=== PATIENT | male | born 1960 | race Caucasian/White ===

== ENCOUNTER 2024-01-28 12:16 | Inpatient (IN) | payer BC, SELFPAY ==
[2024-01-28] VITALS (13 sets, daily range): BP systolic 116–149; BP diastolic 53–86; PULSE 53–65; RESP 14–18; TEMP 36.4–36.9; O2SAT 92–97; BMI 48.9
--- NOTE | ~2024-01-28 | XR_ITS ---
XR chest 1V portable 02/08/2024 05:56 Indication: Shortness of breath Procedure: AP portable chest Comparison: Comparison to multiple prior studies sequentially, with oldest reviewed study dated 01/27. Findings: Cardiomegaly. Pulmonary edema. Layering right pleural effusion. No pneumothorax. Large bore central venous catheter tip in the SVC. No acute osseous abnormality. Impression: 1: Cardiomegaly with stable pulmonary edema. 2: Layering right pleural effusion. Reviewed, dictated and finalized at location A. Impression: 1: Cardiomegaly with stable pulmonary edema. 2: Layering right pleural effusion.
--- NOTE | ~2024-01-28 | XR_ITS ---
Portable chest x-ray Comparison: 02/02/2024 Clinical History: Shortness of breath Findings: Probable small pleural effusions are present with mild to moderate pulmonary edema pattern . Right-sided central venous line unchanged. Cardiomediastinal silhouette is stable. Bones and soft tissues are unremarkable. Impression: Small pleural effusions with mild to moderate pulmonary edema pattern. Stable support line. Reviewed, dictated and finalized at [facility]. Impression: Small pleural effusions with mild to moderate pulmonary edema pattern. Stable support line.
--- NOTE | ~2024-01-28 | XR_ITS ---
EXAMINATION: XR fl guide central line place DATE: 01/30/2024 16:23 INDICATION: Tunneled Duraflow catheter placement TECHNIQUE: 2 fluoroscopic images of the neck and chest were obtained during procedure performed by Dr Jeri Patel. Radiologist was not present for the imaging or procedure. The amount of fluoroscopy time used during this procedure was 4.0 minutes. COMPARISON: None. FINDINGS: The cephalad portion of a large-bore dual-lumen likely tunneled catheter seen at the right neck likel y for internal jugular vein access. The distal tip of the catheter projects over the high right atriu m. A hemostat and likely lap sponge markers likely external to the patient project over the right inf erior heart. IMPRESSION: 1. Fluoroscopy utilized during placement of a right internal jugular central venous catheter with dis robel tip at the high right atrium. See procedure note for further detail. Reviewed, dictated and finalized at location L. IMPRESSION: 1. Fluoroscopy utilized during placement of a right internal jugular central ve nous catheter with distal tip at the high right atrium. See procedure note for further detail.
--- NOTE | ~2024-01-28 | XR_ITS ---
EXAMINATION: XR chest 1V portable DATE: 01/28/2024 13:36 INDICATION: Shortness of breath. TECHNIQUE: A single frontal view of the chest was obtained on 3 radiographs. COMPARISON: Chest 2 views 11/27/2006 FINDINGS: The patient is rotated to his left. There is a small right pleural effusion. There are airs pace opacities in all right lung zones and in left lower lung zone. No pneumothorax. The heart size i s normal. IMPRESSION: 1. Airspace opacities in all right lung zones and in left lower lung zone, consistent with atelectasi s versus pneumonia. 2. Small right pleural effusion. Reviewed, dictated and finalized at location A. IMPRESSION: 1. Airspace opacities in all right lung zones and in left lower lung zone, cons istent with atelectasis versus pneumonia. 2. Small right pleural effusion.
--- NOTE | ~2024-01-28 | XR_ITS ---
EXAMINATION: XR chest 1V portable Exam Date/Time: 02/02/2024 12:34 CDT HISTORY: pulm edema Comparison: None. RESULT: Lines, tubes, and devices: Right IJ dual-lumen catheter terminating in the distal SVC. Lungs and pleura: Mild diffuse reticular opacities. Patchy segmental right mid and lower as well as left lower opacities. Minimal blunting of the costophrenic angles. Cardiomediastinal silhouette: Stable. Other: No acute osseous or upper abdominal finding. IMPRESSION: Mid/lower right and lower left lung atelectasis/consolidation. Mild interstitial edema. Possible smal l bilateral pleural effusions. Reviewed, dictated and finalized at location K. IMPRESSION: Mid/lower right and lower left lung atelectasis/consolidation. Mild interstitia l edema. Possible small bilateral pleural effusions.
--- NOTE | ~2024-01-28 | US_ITS ---
EXAMINATION: US venous doppler [facility] DATE: 01/29/2024 09:12 INDICATION: Lower limb swelling and erythema TECHNIQUE: Grayscale ultrasound images without and with compression and Doppler ultrasound images of the bilateral lower extremity veins were obtained. COMPARISON: None. FINDINGS: The visualized portions of right common femoral vein, profunda (deep) femoral vein, femoral vein, pop liteal vein, posterior tibial veins, peroneal veins, gastrocnemius vein and greater saphenous vein ou tflow are patent. The visualized portions of left common femoral vein, profunda femoral vein, femoral vein, popliteal v ein, gastrocnemius vein and greater saphenous vein outflow are patent. The left posterior tibial and peroneal veins are not visualized due to a left shhte-tlw-volf amputation. IMPRESSION: 1. No deep venous thrombosis in either lower limb. Reviewed, dictated and finalized at location B.
--- NOTE | ~2024-01-28 | US_ITS ---
US abdomen limited INDICATION: Ascites. PROCEDURE: Realtime right upper abdominal ultrasound. COMPARISON: No prior studies for comparison. FINDINGS: The pancreas is normal without focal mass or pancreatic ductal dilation. Liver echotexture is normal without focal mass or intrahepatic biliary dilatation. There is normal directional flow i n the portal vein. Small amount of ascites. The gallbladder is normal without stones, gallbladder wall thickening or pericholecystic fluid. Comm on bile duct measures 5 mm. No sonographic Palomino's sign. IMPRESSION: 1: Small volume of ascites in the upper abdomen. Reviewed, dictated and finalized at location A.
--- NOTE | ~2024-01-28 | XR_ITS ---
XR chest port-a-cath/central 01/30/2024 16:53 Indication: Tunneled Duraflow catheter Procedure: AP portable chest Comparison: 01/28/2004 Findings: Large bore right IJ central venous catheter tip near the cavoatrial junction. Cardiomegaly. There is extensive right-sided airspace disease. No significant effusion. No pneumothorax. No acute osseous abnormality. Impression: 1: Extensive right-sided airspace disease, suspicious for pneumonia. Asymmetric edema less favored. Reviewed, dictated and finalized at location A. Impression: 1: Extensive right-sided airspace disease, suspicious for pneumonia. Asymmetric edema less favored.
--- NOTE | ~2024-01-28 | US_ITS ---
EXAMINATION: US renal BI DATE: 01/29/2024 14:00 INDICATION: Elevated creatinine. TECHNIQUE: Multiple ultrasound grayscale images of the kidneys were obtained. COMPARISON: None. FINDINGS: The right kidney measures 12.1 x 7.1 x 6.5 cm. The left kidney measures 12.7 x 7.4 x 5.4 cm. The kidn eys demonstrate normal parenchymal echogenicity. There is no hydronephrosis. The bladder is normal. A scites is noted. IMPRESSION: 1. Normal kidney sizes. No hydronephrosis. 2. Ascites. Reviewed, dictated and finalized at location A.
--- NOTE | 2024-01-28 12:21 | ECG_ITS ---
Measurements Intervals [place] Rate: 54 P: SD: 0 QRS: 77 QRSD: 87 T: 40 QT: 455 QTc: 433 Interpretive Statements SUPRAVENTRICULAR BRADYCARDIA LOW QRS VOLTAGE- DIFFUSE LEADS CANNOT RULE OUT SEPTAL INFARCT, AGE INDETERMINATE BORDERLINE ST-T WAVE ABNORMALITY- INF/LAT LEADS BASELINE ARTIFACT- I, II, III, AVR, AVL, AVF, V2-V6 ABNORMAL ECG NO PREVIOUS ECG AVAILABLE FOR COMPARISON Electronically Signed On 01-28-2024 12:49:44 CDT by Ortiz Valiente D.O.
[2024-01-28] MEDS: FUROSEMIDE INJ 40 MG/4 ML VIAL IV PUSH ×2 (13:14→14:31)
--- NOTE | 2024-01-28 13:26 | ED.SOB ---
HPI - SOB/Dyspnea General Chief Complaint: Shortness of Breath/Dyspnea Stated Complaint: ble swelling Time Seen by Provider: 01/28/24 12:36 History of Present Illness HPI Narrative: patient presenting with increased swelling to abdomen, lower extremities, and shortness of breath on exertion, he does have history of CHF for which she takes Lasix however over the past 2 weeks things have been getting worse. Has been admitted for this in the past, usually at another hospital. Did also stub one of his remaining toes. Related Data Allergies Allergy/AdvReac Type Severity Reaction Status Date / Time clopidogrel Allergy Unknown Verified 11/25/12 14:51 pregabalin Allergy Unknown Verified 11/25/12 14:51 Review of Systems Review of Systems: CONST: No fever. HEENT: No sore throat C/V: No chest pain RESP: No cough GI: Reports abdominal distension : No dysuria. M/S: lower extremity edema SKIN: Abrasion to toe NEURO: [No headache or focal numbness or weakness] PSYCH: [No depression] [facility] Family History Family History (Updated 11/25/12 @ 14:58 by DOCTOR UNKNOWN) Other Cerebrovascular accident Depression Diabetes mellitus Family history of alcoholism Family history of malignant neoplasm of gastrointestinal tract Family history of mental disorder Hypertension Social History Social History Smoking status: Never smoker Alcohol intake: never Exam Narrative: EXAMINATION OF ORGAN SYSTEMS/BODY AREAS: Constitutional: Vital signs per nursing GENERAL:[No acute distress, non-toxic appearing.] HEAD: Normal with no signs of head trauma. EYES: EOMI, conjunctiva normal ENT: Hearing grossly intact LUNGS: Coarse bilateral lung sounds HEART: [Regular rate and rhythm] ABD: [Soft], distended EXT: LLE BKA; R toe abrasion SKIN: R toe abrasion NEURO: [Alert and oriented x 3. No gross focal sensory or strength deficits.] PSYCH: Normal affect Course Vital Signs Vital signs: Vital Signs Temperature 97.6 F 01/28/24 12:26 Pulse Rate 54 L 01/28/24 12:26 Respiratory Rate 18 01/28/24 12:26 Blood Pressure 119/68 01/28/24 12:26 Pulse Oximetry 92 01/28/24 12:26 Oxygen Delivery Nasal Cannula 01/28/24 12:26 Oxygen Flow Rate 4 01/28/24 12:26 Temperature 97.6 F 01/28/24 14:45 Pulse Rate 59 L 01/28/24 14:45 Respiratory Rate 14 01/28/24 14:45 Blood Pressure 116/76 01/28/24 14:45 Pulse Oximetry 96 01/28/24 14:45 Oxygen Delivery Nasal Cannula 01/28/24 14:14 Oxygen Flow Rate 4 01/28/24 14:14 MDM - SOB/Dyspnea MDM Narrative Medical decision making narrative: 1) Differential diagnosis: CHF exacerbation, ACS, pneumonia 2) Comorbidities: Obesity, CAD, CHF 3) External notes reviewed: n/a (pt from OSH) 4) History sources independently obtained from: EMS report 5) Discussion of management with: hospitalist 6) Independent interpretation of: CXR: R sided effusion, some patchy opacities bilateral lungs; c/w fluid overload 7) Diagnostic tests or therapies considered but not ordered: n/a 8) Social determinants of health: n/a 9) Shared decision makinM h/o CHF p/w CERVANTES and increased JACQUE and abd distension c/w CHF exac; BNP elevated, nl WBC and trop, CXR on my review c/w CHF exac (less likely PNA -- he has no cough and no WBC). He is slightly hypoxic and requiring oxygen, placed on 4 L nasal cannula. He is given 2 doses of lasix. Hendrix placed given the amount of edema for accurate I's and O's. EKG obtained here difficult to interpret due to artifact, the heart rate is 54, appears to have some ectopy/PVC, no obvious ST elevation or other signs of acute ischemia. Patient agreeable to the admission for diuresis. D/w the hospitalist for admission. Lab Data 01/28/24 13:21 01/28/24 13:21 Labs: Lab Results 01/28/24 Range/Units 13:21 WBC 8.2 (4.5-10.0) K/mm3 RBC 4.26 L (4.6-6.20) M/mm3 Hgb 11.8 L (14.0-18.0) g/dL Hct 39
[2024-01-28 13:32] LABS: Basophils Absolute Auto 0.1 K/mm3 (0.0-0.1); Basophils Percent Auto 0.6 % (0.2-1.2); Eosinophils Absolute Auto 0.3 K/mm3 (0-0.3); Eosinophils Percent Auto 3.8 % (0-4.4); Hematocrit 39.7 % (42.0-52.0); Hemoglobin 11.8 g/dL (14.0-18.0); Immature Granulocyte Absolute 0.03 K/mm3 (0.00-0.031); Immature Granulocyte Percent A 0.4 % (0-0.5); Lymphocytes Absolute Auto 0.78 K/mm3 (0.9-3.2); Lymphocytes Percent Auto 9.5 % (18.3-44.2); Mean Corpuscular HGB Conc 29.7 g/dl (32-36); Mean Corpuscular Hemoglobin 27.7 pg (26-34); Mean Corpuscular Volume 93.2 fl (80-100); Mean Platelet Volume 11.2 fl (7.4-10.4); Monocytes Absolute Auto 0.8 K/mm3 (0.1-0.6); Monocytes Percent Auto 9.8 % (2.6-8.5); Neutrophils Absolute Auto 6.3 K/mm3 (1.3-6.7); Neutrophils Percent Auto 75.9 % (45.5-73.1); Platelet Count Result 222 k/mm3 (150-375); Red Blood Count 4.26 M/mm3 (4.6-6.20); Red Cell Distribution Width 17.1 % (11.5-14.5); White Blood Count 8.2 K/mm3 (4.5-10.0)
[2024-01-28 13:41] LABS: Alanine Aminotransferase 18 U/L (6-50); Albumin Level 3.8 g/dL (3.5-5.1); Alkaline Phosphatase 137 U/L (38-126); Anion Gap 9 mmol/L (8-16); Aspartate Amino Transferase 28 U/L (17-59); Bilirubin,Total 0.7 mg/dL (0.2-1.3); Blood Urea Nitrogen 98 mg/dL (9-20); Calcium 8.5 mg/dL (8.4-10.2); Carbon Dioxide 26 mmol/L (22-30); Chloride 98 mmol/L (98-107); Estimated CRCL calculation 31 ml/min; Estimated Glomerular Filt Rate 18; Glucose 135 mg/dL (65-110); Potassium 5.1 mmol/L (3.4-5.0); Sodium 133 mmol/L (137-145)
[2024-01-28 13:46] LABS: INR 1.7
[2024-01-28 13:52] LABS: NT Pro B Type Natriuretic Pept 4980 pg/mL (19.9-100); Troponin I < 0.012 ng/mL (0.000-0.034)
[2024-01-28] MEDS: TETANUS,DIPHTHERIA,AC PERTUSSIS ADULT (0.5 ML) BOOSTRIX IM (14:31)
[2024-01-28] MEDS: ONDANSETRON INJ 4 MG/2 ML VIAL IV PUSH (14:38)
--- NOTE | 2024-01-28 16:29 | ADMGEN ---
This patient, Thang Zamora, was admitted to IMU Room 209-01. Patient/family oriented to hospital policies and general routines including ID bracelet, bed and alarms, visiting hours, pain management, procedures, bathroom and other care routines, personal items, smoking policy, room service/diet, and visiting hours. Information on how to activate the Rapid Response Team has been discussed. Patient/Family are encouraged to report perceived risks to care and to ask questions if they do not understand what they are told or what they should do.
--- NOTE | 2024-01-28 21:58 | PM.IMHP ---
H&P: HPI History of Present Illness Date/Time: 01/28/24 19:00 Chief Complaint: Shortness of breath and swelling. Narrative: This is a 63-year-old male with history of paroxysmal atrial fibrillation, coronary artery disease with history of stents, congestive heart failure-type unknown, deep venous thrombosis, peripheral vascular disease, hypertension, hyperlipidemia, chronic kidney disease with history of temporary dialysis, type 2 diabetes mellitus, and depression who presented to the emergency department via EMS from home for evaluation of shortness of breath and swelling. The patient provides the following history. He gets all of his care at [facility] however due to his insurance he was apparently encouraged to seek treatment elsewhere. Over the last couple of weeks he has developed increasing swelling in his legs which is now up to the scrotum in abdomen, shortness of breath, sweats, and occasional nausea with dry heaves. At times he has mild pressure in his chest which seems to be worse when lying supine. He states compliance with his home medications. He denies fever, chills, cold and flu symptoms, pleuritic pain, productive cough, abdominal pain, vomiting, diarrhea, dysuria, and change in urine output. In the ED: He was afebrile on arrival with stable blood pressures. Labs were significant for WBC count of 8.2, hemoglobin 11.8, INR 1.7, sodium 133, potassium 5.1, BUN 98, creatinine 3.50, glucose 135, proBNP 4980, troponin less than 0.012, total protein 7.0, albumin 3.8. Chest x-ray showed airspace opacities the right lung zones and left lower lung zone consistent with atelectasis versus pneumonia and small right pleural effusion. He was given 80 mg IV furosemide and is being admitted in this setting with CHF exacerbation. Review of Systems Review of Systems: 12 systems were reviewed and are negative except for as per HPI. [facility] Past Medical History Medical History (Updated 01/28/24 @ 22:09 by Adele De Jesus PA-C) Chronic kidney disease Coronary artery disease Deep venous thrombosis Depression Heart failure of unknown type Hypertension Obstructive sleep apnea Does not use CPAP. Paroxysmal atrial fibrillation Peripheral vascular disease Type 2 diabetes mellitus Surgical History Surgical History (Updated 01/28/24 @ 22:05 by Adele De Jesus PA-C) History of amputation of toe History of cardiac catheterization History of cholecystectomy History of coronary artery stent placement History of left below knee amputation Family History Family History Other Cerebrovascular accident Depression Diabetes mellitus Family history of alcoholism Family history of malignant neoplasm of gastrointestinal tract Family history of mental disorder Hypertension Social History Social History (Updated 01/28/24 @ 22:05 by Adele De Jesus PA-C) Social History: Surrogate medical decision maker: Rodríguez Zamora, sibling. Code status: Full code. Smoking status: Never smoker Alcohol intake: never Substance use: never Do You Feel Safe in your Home?: Yes Lack of Transportation: No Lack of Food: Never True Current Housing: I Have Housing Concerned About Future Housing: YES Difficulty Paying Gas/Electric Bills: YES Difficulty Paying for Meds: No Currently Unemployed: No Education: Trade/Vocational Certificate Difficulty w/ Childcare or Family Care: No Spiritual care concerns: No Meds Home Medications and Allergies Home Medications Medication Instructions Recorded Confirmed Type Saccharomyces boulardii 250 mg 250 mg PO DAILY PRN Constipation 01/28/24 01/28/24 History capsule (Daily Probiotic (S. boulardii)) allopurinol 100 mg tablet 100 mg PO DAILY 01/28/24 01/28/24 History amlodipine 10 mg tablet 10 mg PO DAILY 01/28/24 01/28/24 History apixaban 5 mg tablet (Eliquis) 2.5 mg PO BID 01/28/24 01/28/24 History a
[2024-01-28] MEDS: hydrALAZINE HCL 50 MG TABLET PO (22:49)
[2024-01-28] MEDS: traZODone HCL 50 MG TABLET PO (22:49)
[2024-01-28] MEDS: METOPROLOL SUCCINATE EXT REL 50 MG TABCR PO (22:50)
[2024-01-28] MEDS: APIXABAN 2.5 MG TABLET PO (22:50)
[2024-01-28] MEDS: INSULIN GLARGINE (*BKC) 100 UNITS/ML 12 UNITS SUB-Q (22:56)
[2024-01-28 23:07] LABS: Hemoglobin A1C 8.2 % (<5.7)
[2024-01-28 23:15] LABS: Glucose Point of Care 191 mg/dl (65-105)
[2024-01-28 23:22] LABS: Anion Gap 7 mmol/L (8-16); Blood Urea Nitrogen 96 mg/dL (9-20); CRP 3.1 mg/dL (<1.0); Calcium 8.5 mg/dL (8.4-10.2); Carbon Dioxide 29 mmol/L (22-30); Chloride 97 mmol/L (98-107); Estimated CRCL calculation 27 ml/min; Estimated Glomerular Filt Rate 16; Glucose 179 mg/dL (65-110); Magnesium 3.2 mg/dL (1.6-2.3); Potassium 4.8 mmol/L (3.4-5.0); Sodium 133 mmol/L (137-145)
[2024-01-28 23:32] LABS: Troponin I < 0.012 ng/mL (0.000-0.034)
[2024-01-29] VITALS (21 sets, daily range): BP systolic 105–135; BP diastolic 49–63; PULSE 49–86; RESP 18–20; TEMP 36.4–36.9; O2SAT 91–100
[2024-01-29 05:00] LABS: Hematocrit 38.3 % (42.0-52.0); Hemoglobin 11.3 g/dL (14.0-18.0); Mean Corpuscular HGB Conc 29.5 g/dl (32-36); Mean Corpuscular Hemoglobin 27.5 pg (26-34); Mean Corpuscular Volume 93.2 fl (80-100); Mean Platelet Volume 10.9 fl (7.4-10.4); Platelet Count Result 213 k/mm3 (150-375); Red Blood Count 4.11 M/mm3 (4.6-6.20); Red Cell Distribution Width 16.9 % (11.5-14.5); White Blood Count 7.9 K/mm3 (4.5-10.0)
[2024-01-29 05:08] LABS: Anion Gap 7 mmol/L (8-16); Blood Urea Nitrogen 94 mg/dL (9-20); Calcium 8.3 mg/dL (8.4-10.2); Carbon Dioxide 29 mmol/L (22-30); Chloride 98 mmol/L (98-107); Estimated CRCL calculation 26 ml/min; Estimated Glomerular Filt Rate 15; Glucose 157 mg/dL (65-110); Magnesium 3.2 mg/dL (1.6-2.3); Potassium 4.7 mmol/L (3.4-5.0); Sodium 134 mmol/L (137-145)
[2024-01-29 07:18] LABS: Glucose Point of Care 164 mg/dl (65-105)
[2024-01-29 09:09] LABS: Free T4 Free Thyroxine Reflex 1.12 ng/dL (0.78-2.19)
[2024-01-29] MEDS: METOPROLOL SUCCINATE EXT REL 50 MG TABCR PO (09:11)
[2024-01-29] MEDS: ASCORBIC ACID 500 MG TABLET PO (09:11)
[2024-01-29] MEDS: FERROUS SULFATE 325 MG TABLET DR PO (09:11)
[2024-01-29] MEDS: PANTOPRAZOLE 40 MG TABLET PO ×2 (09:11→17:26)
[2024-01-29] MEDS: CHOLECALCIFEROL 1,000 UNITS TABLET 5000 UNITS PO (09:11)
[2024-01-29] MEDS: TAMSULOSIN HCL 0.4 MG CAPSULE PO (09:11)
[2024-01-29] MEDS: FUROSEMIDE INJ 40 MG/4 ML VIAL IV PUSH ×2 (09:12→17:26)
[2024-01-29] MEDS: THERAPEUTIC MULTIVITAMINS/MINERALS TAB (*BKC) 1 TABLET PO (09:12)
[2024-01-29] MEDS: allopurinoL 100 MG TABLET PO (09:12)
[2024-01-29] MEDS: amLODIPine BESYLATE 5 MG TABLET 10 MG PO (09:12)
[2024-01-29] MEDS: DULoxetine HCL 30 MG CAPSULE.DR PO (09:12)
[2024-01-29] MEDS: APIXABAN 2.5 MG TABLET PO ×2 (09:12→20:38)
[2024-01-29] MEDS: TOLNAFTATE 1% POWDER 45 GM BTL 1 APPLIC TOPICAL ×2 (09:15→20:39)
--- NOTE | 2024-01-29 09:57 | PM.CNNEP ---
Assessment and Plan Assessment and plan (1) Chronic kidney disease: Code(s): N18.9 - Chronic kidney disease, unspecified Status: Acute Assessment and Plan: Patient has an elevated creatinine. It is unclear how chronic this is. Just heard of this month or 2 ago but he does not go to the doctor routinely because of his insurance issues. He was told to go to a die filer but a die filer did not see him in the hospital so I am assuming that this is chronic and relatively stable at what ever creatinine he had at [facility]. Will try to get some records from them. Right now his GFR is 15 he does not have any uremic symptoms so we would need to do dialysis at this point. If this is chronic kidney disease (likely due to diabetes and hypertension plus vascular disease), then we would try to maintain his GFR while treating his swelling. He probably does at least have a component of CKD. If this is acute on chronic then will try to improve the renal function. So at this point will evaluate for both. We can check serology and immunofixation. Will also check a renal ultrasound. Will also check urine electrolytes, CPK, and fractional excretion of urea. (2) Edema: Code(s): R60.9 - Edema, unspecified Status: Acute Assessment and Plan: The patient has a substantial amount of swelling. He is getting furosemide 40mg IV twice a day. His urine output is not very good. Etiology of the swelling could be from nephrotic syndrome from the diabetes. He could also have heart failure. He does not have any lab evidence of cirrhosis. Venous Dopplers were negative. Will check for protein in the urine. Also will check an echocardiogram. Consider CT of the abdomen if those 2 are normal. (3) Acute hypoxic respiratory failure: Code(s): J96.01 - Acute respiratory failure with hypoxia Status: Acute Assessment and Plan: The patient is on 4L of oxygen. Will continue attempting diuresis. (4) Acute hyperkalemia: Code(s): E87.5 - Hyperkalemia Status: Acute Assessment and Plan: Potassium was borderline high on admission but is normal now (5) Hypertension: Code(s): I10 - Essential (primary) hypertension Status: Acute Assessment and Plan: Blood pressure is doing well this morning. (6) Paroxysmal atrial fibrillation: Code(s): I48.0 - Paroxysmal atrial fibrillation Status: Acute Assessment and Plan: Heart rate is good. He is on Eliquis (7) Coronary artery disease: Code(s): I25.10 - Atherosclerotic heart disease of [place] coronary artery without angina pectoris Status: Acute Assessment and Plan: No chest pain (8) Type 2 diabetes mellitus: Code(s): E11.9 - Type 2 diabetes mellitus without complications Status: Acute Assessment and Plan: On Accu-Cheks sliding scale insulin. Management per hospitalist. History of Present Illness Reason for Consult Consult date: 01/29/24 Chief Complaint Chief complaint: Acute CHF Exacerbation/Volume Overload/Hypoxia History of Present Illness Narrative: Thang is a very pleasant 63-year-old gentleman has multiple medical problems including chronic kidney disease, diabetes, hypertension, high body mass index, coronary disease, paroxysmal atrial fibrillation, peripheral vascular disease, obstructive sleep apnea but does not use a CPAP, and history of DVTs. The patient has been getting his care at [facility] in [place] but he had a change in insurance and they do not take this insurance so he came here. The patient came in because of shortness of breath and swelling. He was a [facility] a while back swelling. He was given diuretics. At the time he did have an elevated creatinine and on discharge he was advised to see a die filer. He has not been in to see 1 yet because of how busy the office was at that hospital. However he developed
--- NOTE | 2024-01-29 10:09 | ECHO_ITS ---
Patient Info Name: Thang Zamora Age: 63 years : 1960 Gender: Male Ht: 70 in Wt: 365 lbs BSA: 2.95 m2 HR: 78 bpm Technical Quality: Poor Exam Date: 01/29/2024 2:03 PM Exam Location: Echo Lab Patient Status: Inpatient Admit Date: 01/28/2024 Staff Ordering Physician: Quincy Slaughter MD Air Hammer Operator: Mackenzie Cordova RDCS Attending Provider: Volodymyr Stephens MD Referring Physician: Sukhjinder LEROY; Exam Type: CA echo dop color flow w con Study Info Indications - VOLUME OVERLOAD CKD Complete two-dimensional, color flow and Doppler transthoracic echocardiogram is performed with contrast to opacify the left ventricle and to improve the deliniation of the left ventricle endocardial borders. Contrast/Agitated Saline Contrast/Ag. Saline: Definity Amount: 2.00 ml Administered By: Mackenzie Cordova [facility] Existing IV Access: Yes IV Access Condition: patent with no signs of infiltration Reason for Poor Study: patient body habitus Summary 1. Technically suboptimal study due to poor sonographic images. 2. Left ventricular chamber dimension is moderately enlarged. 3. Left ventricular systolic function is normal, estimated at 60-65%. 4. The left ventricular diastolic function is abnormal. 5. E/e' 13 is mildly elevated. 6. Left atrial chamber dimension is mildly enlarged. 7. Right atrial chamber dimension is mildly enlarged. 8. There is moderate aortic valve sclerosis as a moderate calcification of non-coronary cusp. 9. There is trace mitral valve regurgitation. 10. There is mild tricuspid valve regurgitation. 11. Mild pulmonary hypertension, estimated pulmonary arterial systolic pressure is 43 mmHg. 12. Dilated inferior vena cava with >50% collapse upon inspiration consistent with elevated right atrial pressure, 10 mmHg. Left Ventricle Technically suboptimal study due to poor sonographic images. E/e' 13 is mildly elevated. Left ventricular chamber dimension is moderately enlarged. Left ventricular systolic function is normal, estimated at 60-65%. The left ventricular diastolic function is abnormal. Right Ventricle Right ventricular chamber dimension is normal. Right ventricular systolic function is normal. Left Atria Left atrial chamber dimension is mildly enlarged. Right Atria Right atrial chamber dimension is mildly enlarged. Aortic Valve There is moderate aortic valve sclerosis as a moderate calcification of non-coronary cusp. The aortic valve is trileaflet. There is no aortic valve stenosis. There is no aortic valve regurgitation. Pulmonic Valve There is no pulmonic regurgitation. Mitral Valve There is no mitral valve stenosis. There is trace mitral valve regurgitation. Tricuspid Valve There is mild tricuspid valve regurgitation. Mild pulmonary hypertension, estimated pulmonary arterial systolic pressure is 43 mmHg. Pericardium/Pleural There is no pericardial effusion. Inferior Vena Cava Dilated inferior vena cava with >50% collapse upon inspiration consistent with elevated right atrial pressure, 10 mmHg. Aorta The aortic root size at the sinus of Valsalva is normal. Left Ventricular Outflow Tract Name Value Normal LVOT 2D LVOT Diameter 2.12 cm LVOT Doppler
[2024-01-29 10:30] LABS: Total Triiodothyronine (T3) 0.65 NG/ML (0.97-1.69)
[2024-01-29 11:52] LABS: Glucose Point of Care 190 mg/dl (65-105)
[2024-01-29 12:00] LABS: Parathyroid Intact 145.8 pg/mL (7.5-53.5)
[2024-01-29 12:04] LABS: Erythrocyte Sedimentation Rate 15 mm/hr (0-20)
[2024-01-29 12:06] LABS: Complement C3 91 mg/dL (88-165)
[2024-01-29 12:09] LABS: Creatine Kinase 76 U/L (55-170)
[2024-01-29] MEDS: hydrALAZINE HCL 50 MG TABLET PO ×2 (14:40→20:38)
[2024-01-29] MEDS: PERFLUTREN LIPID MICROSPHERES 1.5 ML VIAL DILUTED TO 10 ML TOTAL VOLUME IV PUSH (14:50)
--- NOTE | 2024-01-29 15:05 | IVDEFINITY ---
Prior to administration of IV Definity the patient was educated on the risks and benefits of the imaging enhancing agent including potential adverse side effects. The patient verbalized understanding. Allergies were verified. No exclusion criteria were identified and at least one of the following inclusion criteria were met: 1) physician request, 2) patient technically difficult to image (per the [place] [employer] guidelines of two or more segments not discernable within the apical view), or 3) questionable left ventricular function. ?
[2024-01-29] MEDS: MAGNESIUM OXIDE 400 MG TABLET PO (17:26)
[2024-01-29] MEDS: INSULIN ASPART (*BKC) 100 UNITS/ML SUB-Q ×2 (17:33→20:38)
[2024-01-29 17:36] LABS: Glucose Point of Care 235 mg/dl (65-105)
--- NOTE | 2024-01-29 18:31 | PM.IMPN ---
Progress Note: A&P Assessment and Plan (1) CHF exacerbation: Code(s): I50.9 - Heart failure, unspecified Status: Acute Assessment and Plan: The patient presents with shortness of breath and diffuse edema. CXR showing airspace opacities in all right lung zones and LLL with small right pleural effusion. BNP 4980 EKG showing supraventricular bradycardia and borderline ST-T wave changes. Echo showing EF 60-65% with LV enlargement, diastolic dysfunction and mild pulmonary HTN Concerning for acute CHF but consider related to renal failure. Less likely related to Rt heart failure. He has been started on Lasix IV. UOP not brisk. Monitor dialy weights, UOP. (2) Hypoxia: Code(s): R09.02 - Hypoxemia Status: Acute Assessment and Plan: Patient was hypoxic on admisison. CXR as mentioned above. Not able to do CTA but unlikely he has PE since he is on Eliquis. LE venous doppler negative for DVT No ABG. Was on 4L but able to wean down to 1L. Not able to wear CPAP is impacting his other medical problems. (3) Electrolyte abnormality: Code(s): E87.8 - Other disorders of electrolyte and fluid balance, not elsewhere classified Status: Acute Assessment and Plan: Sodium slightly low but stable and is likely related to excess fluid. Potassium was minimally elevated and improved with diuresis. Mag level elevated. Calcium normal but iPTH elevated Monitor and replace electrolytes. Check Phos level (4) Chronic kidney disease: Code(s): N18.9 - Chronic kidney disease, unspecified Status: Acute Assessment and Plan: Patient has a hx of CKD and appears to be close to dialysis. Baseline numbers unknown. Cr 3.5 and BUN 98 on admisison. Renal US showing normal appearing kidneys and ascites. With diuresis, BUN slightly better but Cr up to 4.1 Nephrology consulted and workup has been ordered. Check Abd US to assess for cirrhosis but feel the ascites probably related to renal failure. Monitor UOP, renal function and electrolytes (5) Type 2 diabetes mellitus: Code(s): E11.9 - Type 2 diabetes mellitus without complications Status: Acute Assessment and Plan: A1c 8.2. The patient's blood glucose was reviewed on 01/28 Glucose remains reasonably well controlled. Continue AccuCheks covering with sliding scale. Hypoglycemia protocol available as needed. Continue to monitor (6) Coronary artery disease: Code(s): I25.10 - Atherosclerotic heart disease of [place] coronary artery without angina pectoris Status: Acute Assessment and Plan: Hx of CAD s/p stent placement Not on ASA or statin. He is on betablocker but having supraventricular bradycardia. Probably chronic AFib? Back off on metoprolol given the soft BP and bradycardia. (7) Paroxysmal atrial fibrillation: Code(s): I48.0 - Paroxysmal atrial fibrillation Status: Acute Assessment and Plan: As above. Continue Eliquis for stroke prophylaxis Plan DVT prophlaxis - Eliquis Code status - full Subjective Date/time seen: 01/29/24 18:31 Interval history: 63yo male with pAFib, CKD with hx of temporary dialysis, CAD, TRISTEN (not on CPAP), CHF, PVD, HTN and DVT here for SOB. Assuming care. Chart reviewed. Slept off/on last night. Feels tired. No CPor SOB. Not on O2 at home. No n/v. He has been told that he is close to dialysis. No hx of cirrhosis. No hx of paracentesis. Abd feels full Exam Narrative: AF 98.0 109/49 49 18 91% 1L Gen - NARD lying almost flat in bed Chest - decreased BS in the bases but clear anteriorly. CV - RRR S1/S2. Tele showing occasional bradycardia. Abd - Soft, obese, NT - Hendrix secured draining clear yellow urine. Scrotal edema. Ext - Left LE BKA with pink erythema and excoriations proximal tot he stump. 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 Diffusely edematous Neuro - Alert and oriented. Nonfocal exam.
[2024-01-29 19:24] LABS: Appearance Urine Turbid (Clear); Bacteria Urine 2+ /hpf; Bilirubin Urine 1+ (Negative); Blood Urine 2+ (Negative); Color Urine Dark Yellow (Yellow); Glucose Urine UA Negative (Negative); Ketones Urine Trace mg/dL (Negative); Leukocyte Esterase Ur 3+ LEU/UL (Negative); Need Manual Microscopic Reviewed; Nitrate Urine Negative (Negative); Non Pathogenic Casts >20; Protein Urine 2+ mg/dL (Negative); RBC Urine 21-50 /hpf (0-2); Specific Grav Ur 1.017 (1.001-1.035); Squamous Epithelial Cell Urine Occasional /hpf (Few); Urobilinogen Urine 0.2 mg/dL (<2.0); WBC Urine >100 /hpf (0-3)
[2024-01-29 19:27] LABS: Add Urine Microscopic? YES
[2024-01-29 19:40] LABS: Creatinine Urine 210.2 mg/dL; Sodium Urine Random 24 meq/L; Total Protein Urine Random 104 mg/dL; Ur Ttl Prot Creatinine Ratio 0.49 mg/mg (0-0.20); Urea Random Urine 325 MG/DL
[2024-01-29 20:25] LABS: Glucose Point of Care 224 mg/dl (65-105)
[2024-01-29] MEDS: traZODone HCL 50 MG TABLET PO (20:37)
[2024-01-29] MEDS: INSULIN GLARGINE (*BKC) 100 UNITS/ML 12 UNITS SUB-Q (20:38)
[2024-01-30] VITALS (32 sets, daily range): BP systolic 74–127; BP diastolic 37–65; PULSE 46–68; RESP 12–20; TEMP 33.7–37; O2SAT 24–99
[2024-01-30 04:51] LABS: Basophils Absolute Auto 0.1 K/mm3 (0.0-0.1); Basophils Percent Auto 0.7 % (0.2-1.2); Eosinophils Absolute Auto 0.3 K/mm3 (0-0.3); Eosinophils Percent Auto 4.1 % (0-4.4); Hematocrit 39.2 % (42.0-52.0); Hemoglobin 11.3 g/dL (14.0-18.0); Immature Granulocyte Absolute 0.04 K/mm3 (0.00-0.031); Immature Granulocyte Percent A 0.5 % (0-0.5); Lymphocytes Absolute Auto 1.23 K/mm3 (0.9-3.2); Lymphocytes Percent Auto 16.8 % (18.3-44.2); Mean Corpuscular HGB Conc 28.8 g/dl (32-36); Mean Corpuscular Hemoglobin 27.4 pg (26-34); Mean Corpuscular Volume 95.1 fl (80-100); Mean Platelet Volume 10.9 fl (7.4-10.4); Monocytes Absolute Auto 1.1 K/mm3 (0.1-0.6); Neutrophils Absolute Auto 4.6 K/mm3 (1.3-6.7); Neutrophils Percent Auto 62.9 % (45.5-73.1); Platelet Count Result 206 k/mm3 (150-375); Red Blood Count 4.12 M/mm3 (4.6-6.20); Red Cell Distribution Width 16.7 % (11.5-14.5); White Blood Count 7.3 K/mm3 (4.5-10.0)
[2024-01-30 05:12] LABS: Albumin Level 3.4 g/dL (3.5-5.1); Anion Gap 6 mmol/L (8-16); Blood Urea Nitrogen 108 mg/dL (9-20); Calcium 8.2 mg/dL (8.4-10.2); Carbon Dioxide 31 mmol/L (22-30); Chloride 96 mmol/L (98-107); Estimated CRCL calculation 22 ml/min; Estimated Glomerular Filt Rate 12; Glucose 174 mg/dL (65-110); Phosphorus 7.6 mg/dL (2.5-4.5); Potassium 6.3 mmol/L (3.4-5.0); Sodium 133 mmol/L (137-145)
[2024-01-30 05:13] LABS: Anisocytosis 1+; Hypochromasia 1+; Macrocytosis 1+ (NORMAL); Platelet Estimate Adequate (Adequate)
[2024-01-30 05:14] LABS: Ovalocytes 1+; Schistocytes None Seen
--- NOTE | 2024-01-30 05:32 | PC.NURSE ---
Dr. Machado notified of critical potassium-deferred to nephrology. Dr. Slaughter notified of critical potassium of 6.3 and change in BUN (108) and creatinine (5.10). Orders received to treat high potassium. Patient more lethargic this shift showing signs of becoming more uremic. All vitals stable at this time. Will continue to monitor.
[2024-01-30] MEDS: SODIUM ZIRCONIUM CYCLOSILICATE 10 GM POWD.PACK PO (05:50)
[2024-01-30] MEDS: hydrALAZINE HCL 50 MG TABLET PO (05:51)
[2024-01-30] MEDS: DEXTROSE 50% 25 GM/50 ML SYRINGE IV PUSH (05:51)
[2024-01-30] MEDS: INSULIN HUMAN REGULAR (*BKC) 100 UNITS/ML 10 UNITS IV PUSH (05:51)
[2024-01-30 06:09] LABS: Magnesium 3.3 mg/dL (1.6-2.3)
[2024-01-30 07:31] LABS: Alanine Aminotransferase 15 U/L (6-50); Albumin Level 3.2 g/dL (3.5-5.1); Alkaline Phosphatase 117 U/L (38-126); Anion Gap 8 mmol/L (8-16); Aspartate Amino Transferase 25 U/L (17-59); Bilirubin,Total 0.5 mg/dL (0.2-1.3); Blood Urea Nitrogen 108 mg/dL (9-20); Calcium 7.7 mg/dL (8.4-10.2); Carbon Dioxide 27 mmol/L (22-30); Chloride 96 mmol/L (98-107); Estimated CRCL calculation 23 ml/min; Estimated Glomerular Filt Rate 12; Glucose 143 mg/dL (65-110); Potassium 4.8 mmol/L (3.4-5.0); Sodium 131 mmol/L (137-145)
--- NOTE | 2024-01-30 08:13 | PM.PNNEP ---
Progress Note: A&P Assessment and Plan (1) Chronic kidney disease: Code(s): N18.9 - Chronic kidney disease, unspecified Status: Acute Assessment and Plan: Patient has an elevated creatinine. Acute versus acute on chronic versus pure chronic. Urine electrolytes show pre renal azotemia. He has only 419mg of protein per g of creatinine. CK is normal Renal ultrasound shows normal kidney size and no hydronephrosis. Normal echogenicity. There is ascites. Echo shows mild pulmonary hypertension with the pulmonary artery systolic pressure of 43. Elevated right atrial pressure. His creatinine has worsened. His potassium was high this morning but responded to Lokelma. His BUN is up above 100 now. He is still very swollen. Urine output overnight was only 500mL, in response to40mg b.i.d. of furosemide. If we give him more diuretics, his creatinine will likely worsen. It will likely worsen even without them. If we try fluids his swelling is going to get even worse. I think at this point we need to do dialysis. I talked with the patient at length. We discussed the risks, benefits, alternatives, and process of dialysis and he agrees to proceed. I did put a call in to his sibling Rodríguez as well. I will put a consult in to surgery to place a dialysis catheter. Since the potassium is better, it is not an emergency but I would like to get going with the dialysis fairly soon. He is currently NPO so he could have either a temporary or a tunneled catheter. (2) Edema: Code(s): R60.9 - Edema, unspecified Status: Acute Assessment and Plan: The patient has a substantial amount of swelling. He is getting furosemide 40mg IV twice a day. His urine output is still somewhat low. Heart failure and proteinuria do not explain the swelling. Possibly just due to the renal failure. Does have ascites. Will check a CT of the abdomen down the line to investigate his liver and spleen. (3) Acute hypoxic respiratory failure: Code(s): J96.01 - Acute respiratory failure with hypoxia Status: Acute Assessment and Plan: The patient is on 4L of oxygen. (4) Acute hyperkalemia: Code(s): E87.5 - Hyperkalemia Status: Acute Assessment and Plan: Potassium was borderline high on admission and again earlier but repeat is normal. (5) Hypertension: Code(s): I10 - Essential (primary) hypertension Status: Acute Assessment and Plan: Blood pressure is down to 96. Will hold blood pressure meds. (6) Paroxysmal atrial fibrillation: Code(s): I48.0 - Paroxysmal atrial fibrillation Status: Acute Assessment and Plan: Heart rate is good. He is on Eliquis (7) Coronary artery disease: Code(s): I25.10 - Atherosclerotic heart disease of [place] coronary artery without angina pectoris Status: Acute Assessment and Plan: No chest pain (8) Type 2 diabetes mellitus: Code(s): E11.9 - Type 2 diabetes mellitus without complications Status: Acute Assessment and Plan: On Accu-Cheks sliding scale insulin. Management per hospitalist. Subjective Date/time seen: 01/30/24 08:13 Interval history: Patient slept okay last night. He is feeling about the same today. Overnight he developed hyperkalemia. He received some medications for this and a repeat lab shows improvement. Review of Systems Cardiovascular: Cardiovascular: Reports no additional cardiovascular complaints Respiratory: Respiratory: Reports no additional respiratory complaints Gastrointestinal: Gastrointestinal: Reports no additional gastrointestinal complaints Genitourinary: Genitourinary: Reports no additional male genitourinary complaints Exam Narrative: WDWN in NAD skin no rash head ncat lungs clear bilaterally cor reg no rub abd BS+ nontender and soft ext 2+ bilateral edema. Left sided amputation. Right side eschars plus
[2024-01-30 08:22] LABS: Glucose Point of Care 163 mg/dl (65-105)
[2024-01-30] MEDS: DULoxetine HCL 30 MG CAPSULE.DR PO (09:22)
[2024-01-30] MEDS: ASCORBIC ACID 500 MG TABLET PO (09:22)
[2024-01-30] MEDS: TAMSULOSIN HCL 0.4 MG CAPSULE PO (09:22)
[2024-01-30] MEDS: THERAPEUTIC MULTIVITAMINS/MINERALS TAB (*BKC) 1 TABLET PO (09:22)
[2024-01-30] MEDS: CHOLECALCIFEROL 1,000 UNITS TABLET 5000 UNITS PO (09:22)
[2024-01-30] MEDS: FERROUS SULFATE 325 MG TABLET DR PO (09:22)
[2024-01-30] MEDS: PANTOPRAZOLE 40 MG TABLET PO (09:22)
[2024-01-30] MEDS: allopurinoL 100 MG TABLET PO (09:23)
[2024-01-30] MEDS: TOLNAFTATE 1% POWDER 45 GM BTL 1 APPLIC TOPICAL ×2 (09:24→20:59)
--- NOTE | 2024-01-30 11:45 | W.PM.PROC2 ---
Procedure Note - Detailed Date of Procedure 01/30/24 Pre-op Diagnosis Acute CHF Exacerbation/Volume Overload/Hypoxia Post-op Diagnosis Same Procedure Performed Placement tunneled Duraflow CVC using ultrasound and under fluoroscopy Surgeon Bennett Patel MD Anesthesia MAC Description of Procedure Placement tunneled Duraflow CVC using ultrasound and under fluoroscopy
[2024-01-30 12:22] LABS: Glucose Point of Care 142 mg/dl (65-105)
[2024-01-30 13:05] LABS: Hepatitis B Surface Antigen Negative (Negative)
[2024-01-30 13:10] LABS: Hepatitis B Core IgM Result Negative (Negative)
[2024-01-30 13:23] LABS: Hepatitis B Surface Anti Res Negative
--- NOTE | 2024-01-30 13:48 | PC.NURSE ---
To OR per [ Lokesh], IV [22 right hand ]. Report given to [ Daniel]. Requested that they have PACU call me once he gets there so we can coordinate with dialysis and figure out if he should come back to his room or go straight to dialysis.
--- NOTE | 2024-01-30 14:15 | WPDANESEPPF ---
Anes - Initial Pre Proc Eval Procedure: Operation Date: 01/30/24 15:30 Proposed Procedures p Placement Tunnelled Duraflow Catheter Under Fluoroscopy - Bennett Patel MD Date/Time: 01/30/24 14:15 Surgeon: Volodymyr Stephens MD Pre Op Diagnosis: Acute CHF Exacerbation/Volume Overload/Hypoxia Patient Data Age: 63 Gender: M Height: 1.78 m Weight: 167 kg Last Vital Signs Temp 36.1 C L 01/30/24 14:11 Pulse 52 L 01/30/24 14:11 Resp 18 01/30/24 14:11 BP 107/49 L 01/30/24 14:11 Pulse Ox 92 01/30/24 14:11 O2 Del Method Nasal Cannula 01/30/24 14:11 O2 Flow Rate 2 01/30/24 14:11 Allergies Allergy/AdvReac Type Severity Reaction Status Date / Time clopidogrel Allergy Unknown Verified 11/25/12 14:51 pregabalin Allergy Unknown Verified 11/25/12 14:51 Home Medications Medication Instructions Recorded Confirmed Type Saccharomyces boulardii 250 mg 250 mg PO DAILY PRN Constipation 01/28/24 01/28/24 History capsule (Daily Probiotic (S. boulardii)) allopurinol 100 mg tablet 100 mg PO DAILY 01/28/24 01/28/24 History amlodipine 10 mg tablet 10 mg PO DAILY 01/28/24 01/28/24 History apixaban 5 mg tablet (Eliquis) 2.5 mg PO BID 01/28/24 01/28/24 History ascorbic acid (vitamin C) 500 mg 500 mg PO DAILY 01/28/24 01/28/24 History tablet (Vitamin C) cholecalciferol (vitamin D3) 125 125 mcg PO DAILY 01/28/24 01/28/24 History mcg (5,000 unit) tablet docusate sodium 100 mg capsule 100 mg PO BID PRN Constipation 01/28/24 01/28/24 History duloxetine 30 mg capsule,delayed 30 mg PO DAILY 01/28/24 01/28/24 History release ferrous sulfate 325 mg (65 mg 65 mg PO DAILY 01/28/24 01/28/24 History iron) tablet (FeroSul) hydralazine 10 mg tablet 50 mg PO Q8H 01/28/24 01/28/24 History insulin glargine 100 unit/mL 12 unit subcut HS 01/28/24 01/28/24 History subcutaneous solution magnesium oxide 400 mg (241.3 mg 500 mg PO BID 01/28/24 01/28/24 History magnesium) tablet metoprolol succinate 50 mg 50 mg PO BID 01/28/24 01/28/24 History tablet,extended release 24 hr multivitamin with minerals 1 tablet PO DAILY 01/28/24 01/28/24 History (Multiple Vitamin-Minerals tablet) omeprazole 20 mg capsule,delayed 40 mg PO BID 01/28/24 01/28/24 History release ondansetron 4 mg disintegrating 4 mg PO Q8H PRN Nausea 01/28/24 01/28/24 History tablet tamsulosin 0.4 mg capsule 0.4 mg PO DAILY 01/28/24 01/28/24 History trazodone 50 mg tablet 50 mg PO HS 01/28/24 01/28/24 History Laboratory Tests 01/29/24 01/29/24 01/29/24 17:30 18:23 20:22 WBC RBC Hgb Hct MCV MCH MCHC RDW Plt Count MPV Immature Gran % (Auto) Neut % (Auto) Lymph % (Auto) [place] % (Auto) Eos % (Auto) Baso % (Auto) Lymph # (Auto) [place] # (Auto) Eos # (Auto) Baso # (Auto) Abs Immat Gran (auto) Absolute Neuts (auto) Absolute Nucleated RBC Nucleated RBC % Platelet Estimate Hypochromasia Anisocytosis Macrocytosis Ovalocytes Schistocytes Sodium Potassium Chloride Carbon Dioxide Anion Gap BUN Creatinine Estim Creat Clear Calc Estimated GFR Glucose POC Capillary Glucose 235 H mg/dl 224 H mg/dl (65-105) (65-105) Calcium Phosphorus Magnesium Total Bilirubin AST ALT Alkaline Phosphatase Total Protein Albumin Urine Color Dark yellow (Yellow) Urine Appearance Turbid H (Clear) Urine pH 5.0 (5.0-
--- NOTE | 2024-01-30 14:24 | PM.IMPN ---
Progress Note: A&P Assessment and Plan (1) CHF exacerbation: Code(s): I50.9 - Heart failure, unspecified Status: Acute Assessment and Plan: The patient presents with shortness of breath and diffuse edema. CXR showing airspace opacities in all right lung zones and LLL with small right pleural effusion. BNP 4980 EKG showing supraventricular bradycardia and borderline ST-T wave changes. Echo showing EF 60-65% with LV enlargement, diastolic dysfunction and mild pulmonary HTN Patient with acute diastolic CHF but consider related to fluid overload from renal failure. Less likely related to Rt heart failure. He was started on Lasix IV but now off UOP remains poor Dialysis to help with fluid status (2) Hypoxia: Code(s): R09.02 - Hypoxemia Status: Acute Assessment and Plan: Patient was hypoxic on admisison. CXR as mentioned above. Not able to do CTA but unlikely he has PE since he is on Eliquis. LE venous doppler negative for DVT No ABG. [place] related to the fluid overload Was on 4L but able to wean down to 2L. Not able to wear CPAP is impacting his other medical problems. Wean O2 as tolerated Consider ApneaLink to see if he needs O2 at night once he is closer to dry weight (3) Electrolyte abnormality: Code(s): E87.8 - Other disorders of electrolyte and fluid balance, not elsewhere classified Status: Acute Assessment and Plan: Sodium slightly low but stable and is likely related to excess fluid. Potassium was elevated (6.1) treated with Lokelma. Mag and Phos level elevated. Calcium low but iPTH elevated Monitor and replace electrolytes as needed. (4) Chronic kidney disease: Code(s): N18.9 - Chronic kidney disease, unspecified Status: Acute Assessment and Plan: Patient has a hx of CKD and appears to be close to dialysis by his report. Baseline numbers unknown. Cr 3.5 and BUN 98 on admission Renal US showing normal appearing kidneys and ascites. With diuresis, BUN 108 and Cr 4.8 Nephrology consulted and workup has been ordered. Abd US ordered and pending to assess for cirrhosis. Discussed with nephrology. Plan to start dialysis today. General Surgery consulted for tunnelled catheter placement that was placed earlier today. HD to control fluid status. Monitor UOP, renal function and electrolytes (5) Hypertension: Code(s): I10 - Essential (primary) hypertension Status: Acute Assessment and Plan: Patient's blood pressure was reviewed on 01/29 Blood pressure dropped to 96/46 this morning. Lasix IV, Norvasc, Hydralazine and Toprol XL held today. Will continue to monitor BP and resume home meds as needed (6) Type 2 diabetes mellitus: Code(s): E11.9 - Type 2 diabetes mellitus without complications Status: Acute Assessment and Plan: A1c 8.2. The patient's blood glucose was reviewed on 01/29 Glucose better controlled. Continue AccuCheks covering with sliding scale. Hypoglycemia protocol available as needed. Continue to monitor (7) Coronary artery disease: Code(s): I25.10 - Atherosclerotic heart disease of [place] coronary artery without angina pectoris Status: Acute Assessment and Plan: Hx of CAD s/p stent placement Not on ASA or statin. He is on betablocker but having supraventricular bradycardia. Probably chronic AFib? Metoprolol held. Monitor tele (8) Paroxysmal atrial fibrillation: Code(s): I48.0 - Paroxysmal atrial fibrillation Status: Acute Assessment and Plan: As above. Eliquis for stroke prophylaxis but held for procedure today. Plan DVT prophylaxis - Resume Eliquis when okay with GenSurg Code status - full Subjective Date/time seen: 01/30/24 14:24 Interval history: 63yo male with pAFib, CKD with hx of temporary dialysis, CAD, TRISTEN (not on CPAP), CHF, PVD, HTN and DVT here for SOB. Feels tired. Slept off and on. No
[2024-01-30] MEDS: SODIUM CHLORIDE 0.9% IV 500 ML 30 ML IV CONT (14:52)
[2024-01-30] MEDS: ceFAZolin 3 GM/D5W 100 ML 100 ML IVPB (15:06)
--- NOTE | 2024-01-30 15:22 | PM.CNGS ---
Assessment and Plan Assessment and plan (1) Admission for fitting and adjustment of vascular catheter: Code(s): Z45.2 - Encounter for adjustment and management of vascular access device Status: Acute Assessment and Plan: Plan to proceed with placement tunneled central venous catheter for dialysis using ultrasound and under fluoroscopic guidance in the operating room today. I discussed this with the patient. He understands and agrees to go ahead. (2) Chronic kidney disease: Code(s): N18.9 - Chronic kidney disease, unspecified Status: Chronic (3) CHF exacerbation: Code(s): I50.9 - Heart failure, unspecified Status: Acute History of Present Illness Consult details Consult date: 01/30/24 Requesting physician: Quincy Slaughter MD Narrative: Patient is a 63-year-old man with multiple medical illnesses who presented with shortness of breath, edema and uremia. He has been seen by Nephrology and has a very low GFR. I was asked to place a tunneled central venous catheter for dialysis. REPLACED BY [facility] Past Medical History Medical History Chronic kidney disease Coronary artery disease Deep venous thrombosis Depression Heart failure of unknown type Hypertension Obstructive sleep apnea Does not use CPAP. Paroxysmal atrial fibrillation Peripheral vascular disease Type 2 diabetes mellitus Surgical History Surgical History History of amputation of toe History of cardiac catheterization History of cholecystectomy History of coronary artery stent placement History of left below knee amputation Family History Family History Other Cerebrovascular accident Depression Diabetes mellitus Family history of alcoholism Family history of malignant neoplasm of gastrointestinal tract Family history of mental disorder Hypertension Social History Social History Social History: Surrogate medical decision maker: Rodríguez Zamora, sibling. Code status: Full code. Smoking status: Never smoker Alcohol intake: never Substance use: never Do You Feel Safe in your Home?: Yes Lack of Transportation: No Lack of Food: Never True Current Housing: I Have Housing Concerned About Future Housing: YES Difficulty Paying Gas/Electric Bills: YES Difficulty Paying for Meds: No Currently Unemployed: No Education: Trade/Vocational Certificate Difficulty w/ Childcare or Family Care: No Spiritual care concerns: No Meds Home Medications and Allergies Home Medications Medication Instructions Recorded Confirmed Type Saccharomyces boulardii 250 mg 250 mg PO DAILY PRN Constipation 01/28/24 01/28/24 History capsule (Daily Probiotic (S. boulardii)) allopurinol 100 mg tablet 100 mg PO DAILY 01/28/24 01/28/24 History amlodipine 10 mg tablet 10 mg PO DAILY 01/28/24 01/28/24 History apixaban 5 mg tablet (Eliquis) 2.5 mg PO BID 01/28/24 01/28/24 History ascorbic acid (vitamin C) 500 mg 500 mg PO DAILY 01/28/24 01/28/24 History tablet (Vitamin C) cholecalciferol (vitamin D3) 125 125 mcg PO DAILY 01/28/24 01/28/24 History mcg (5,000 unit) tablet docusate sodium 100 mg capsule 100 mg PO BID PRN Constipation 01/28/24 01/28/24 History duloxetine 30 mg capsule,delayed 30 mg PO DAILY 01/28/24 01/28/24 History release ferrous sulfate 325 mg (65 mg 65 mg PO DAILY 01/28/24 01/28/24 History iron) tablet (FeroSul) hydralazine 10 mg tablet 50 mg PO Q8H 01/28/24 01/28/24 History insulin glargine 100 unit/mL 12 unit subcut HS 01/28/24 01/28/24 History subcutaneous solution magnesium oxide 400 mg (241.3 mg 500 mg PO BID 01/28/24 01/28/24 History magnesium) tablet metoprolol succinate 50 mg 50 mg PO BID 01/28/24 01/28/24 History tablet,extended release 24 hr multiv
[2024-01-30] MEDS: LIDO 1%/EPINEPHRINE 1:100,000 20 ML VIAL 50 ML INFILTRATE (15:37)
[2024-01-30] MEDS: HEPARIN SODIUM, PORCINE 10,000 UNITS/10 ML VIAL 10000 UNITS IV PUSH (15:40)
[2024-01-30 17:04] LABS: Glucose Point of Care 160 mg/dl (65-105)
--- NOTE | 2024-01-30 17:16 | W.PM.PROC2 ---
Procedure Note - Detailed Date of Procedure 01/30/24 Pre-op Diagnosis Chronic kidney disease stage 5, inadequate venous access for dialysis Post-op Diagnosis Same Procedure Performed Placement right internal jugular vein tunneled dura flow central venous catheter using ultrasound and under fluoroscopy Surgeon Bennett Patel MD [employer] Gautam Scott NEURODIAGNOSTIC TECH Anesthesia General (LMA) and Local (0.5% Marcaine with epinephrine) Indications Patient presented in congestive heart failure with severe uremia. 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 He is taken to the operating room at this time to proceed with placement. Findings Dialysis catheter tip was in the cavoatrial junction area. Both ports aspirated easily and flushed with heparin. Description of Procedure Patient was taken to the operating room and placed in a supine position. The right neck right and left upper chest were prepped and draped. Using ultrasound, I targeted the left internal jugular vein. I cannulated the vein and a guidewire passed readily. We used C-arm fluoroscopy and the guidewire was in the right atrium. I then chose a 36 cm dura flow central venous catheter. I laid out the pathway the catheter would be tunneled and then enter the internal jugular vein ending in the cavoatrial junction area. I marked each of the proposed counter incisions for tunneling of the catheter. Patient is quite large with a very thick neck. The counter incisions were anesthetized with local anesthesia and then incisions were made including an incision at the exit site of the guidewire. I then tunneled the dura flow catheter retrograde starting in the upper right chest in proceeding through each of the counter incisions and eventually out the exit site of the guidewire. I then started to pass the smaller introducer over the guidewire. This was done under fluoroscopy. Even with the introducer held directly in line with the guidewire, it would not pass into the internal jugular vein. In fact, the guidewire kinked as the path down to the internal jugular vein was fairly direct and deep. The change in direction of the guidewire to feed down the internal jugular vein was almost a right angle. I could not get the introducer to pass the right angle kink in the wire. We brought another introducer kit into the field. I tried to pass this guidewire through the introducer which I kept as close to the internal jugular vein entrance site as I could. It would not pass into the vein. I removed the introducer and the old guidewire. The initial guidewire was discarded. I then brought ultrasound back into the field. I located the internal jugular vein lower on the right side of the neck closer to the chest and clavicle. I placed additional local and then cannulated this area of internal jugular vein. On this cannulation I tried to angle the needle at more of a 45 degree angle down to the vein. The needle was barely long enough to do this but it did work. We cannulated the vein and passed another guidewire into the appropriate position. I had to infiltrated additional local at the exit site of this guidewire. Incision was made as this would be an exit port of the dura flow catheter. I then tunneled the dura flow catheter down to the lower incision where the guidewire was exiting. Serial dilators were then passed under fluoroscopy over the guidewire and into the vena cava. Finally, the dilator and sleeve were passed over this guidewire and into the superior vena cava. I then removed the introducer and guidewire. There was significant venous back bleeding. We tried to keep this to a minimum and passed the dura flow catheter down the sleeve and into the distal SVC right atrial junction. The sleeve was then removed. I checked the position of the catheter and there were no kinks at its apex and appeared to be in very good position.
[2024-01-30] MEDS: ALBUMIN HUMAN 25% 12.5 GM/50ML 100 ML 999 GM (17:43)
[2024-01-30] MEDS: SODIUM CHLORIDE 0.9% IV 1,000 ML 999 ML IV CONT (17:59)
[2024-01-30] MEDS: HEPARIN SODIUM 1,000 UNITS/ML VIAL 5000 UNITS (18:00)
--- NOTE | 2024-01-30 18:00 | PC.NURSE ---
Patient went straight from PACU to dialysis around 1800. He did not come back to his room in between.
[2024-01-30] MEDS: ALBUMIN HUMAN 25% 12.5 GM/50ML 50 ML IVPB (18:27)
[2024-01-30] MEDS: ALBUMIN HUMAN 25% 12.5 GM/50ML 50 ML 999 GM (19:05)
[2024-01-30] MEDS: oxyCODONE/ACETAMINOPHEN (*CRX) 5-325 MG TABLET 1 TABLET PO (20:55)
[2024-01-30] MEDS: INSULIN GLARGINE (*BKC) 100 UNITS/ML 12 UNITS SUB-Q (20:59)
[2024-01-30 21:31] LABS: Glucose Point of Care 133 mg/dl (65-105)
[2024-01-31] VITALS (28 sets, daily range): BP systolic 98–131; BP diastolic 37–76; PULSE 65–75; RESP 16–20; TEMP 35.5–37; O2SAT 92–100
[2024-01-31 05:51] LABS: Hematocrit 35.1 % (42.0-52.0); Hemoglobin 10.5 g/dL (14.0-18.0); Mean Corpuscular HGB Conc 29.9 g/dl (32-36); Mean Corpuscular Hemoglobin 27.7 pg (26-34); Mean Corpuscular Volume 92.6 fl (80-100); Mean Platelet Volume 10.5 fl (7.4-10.4); Platelet Count Result 172 k/mm3 (150-375); Red Blood Count 3.79 M/mm3 (4.6-6.20); Red Cell Distribution Width 16.6 % (11.5-14.5); White Blood Count 6.9 K/mm3 (4.5-10.0)
[2024-01-31 06:18] LABS: Albumin Level 3.3 g/dL (3.5-5.1); Anion Gap 8 mmol/L (8-16); Blood Urea Nitrogen 87 mg/dL (9-20); Carbon Dioxide 27 mmol/L (22-30); Chloride 96 mmol/L (98-107); Estimated CRCL calculation 24 ml/min; Estimated Glomerular Filt Rate 13; Glucose 125 mg/dL (65-110); Phosphorus 6.9 mg/dL (2.5-4.5); Potassium 4.9 mmol/L (3.4-5.0); Sodium 131 mmol/L (137-145)
[2024-01-31] MEDS: oxyCODONE/ACETAMINOPHEN (*CRX) 5-325 MG TABLET 1 TABLET PO ×2 (06:32→23:47)
[2024-01-31 07:46] LABS: Glucose Point of Care 134 mg/dl (65-105)
[2024-01-31] MEDS: CHOLECALCIFEROL 1,000 UNITS TABLET 5000 UNITS PO (08:49)
[2024-01-31] MEDS: THERAPEUTIC MULTIVITAMINS/MINERALS TAB (*BKC) 1 TABLET PO (08:49)
[2024-01-31] MEDS: TAMSULOSIN HCL 0.4 MG CAPSULE PO (08:49)
[2024-01-31] MEDS: DULoxetine HCL 30 MG CAPSULE.DR PO (08:49)
[2024-01-31] MEDS: allopurinoL 100 MG TABLET PO (08:49)
[2024-01-31] MEDS: MAGNESIUM OXIDE 400 MG TABLET PO ×2 (08:49→17:04)
[2024-01-31] MEDS: ASCORBIC ACID 500 MG TABLET PO (08:49)
[2024-01-31] MEDS: PANTOPRAZOLE 40 MG TABLET PO ×2 (08:49→17:04)
[2024-01-31] MEDS: FERROUS SULFATE 325 MG TABLET DR PO (08:49)
[2024-01-31] MEDS: DOCUSATE SODIUM 100 MG CAPSULE PO (08:56)
[2024-01-31] MEDS: SACCHAROMYCES BOULARDII 250 MG CAPSULE PO (08:56)
[2024-01-31] MEDS: TOLNAFTATE 1% POWDER 45 GM BTL 1 APPLIC TOPICAL ×2 (08:57→20:35)
--- NOTE | 2024-01-31 09:32 | PM.PNNEP ---
Progress Note: A&P Assessment and Plan (1) Chronic kidney disease: Code(s): N18.9 - Chronic kidney disease, unspecified Status: Chronic Assessment and Plan: Patient has an elevated creatinine. Acute versus acute on chronic versus pure chronic. Urine electrolytes show pre renal azotemia. He has only 419mg of protein per g of creatinine. CK is normal Renal ultrasound shows normal kidney size and no hydronephrosis. Normal echogenicity. There is ascites. Echo shows mild pulmonary hypertension with the pulmonary artery systolic pressure of 43. Elevated right atrial pressure. He started on dialysis last evening. His blood pressure was a bit soft early on. It improved with albumin. Today will dialyze again. Because he has so much fluid off will do 1hour of dry ultrafiltration and will give albumin from the start to try to maintain his blood pressure while we take fluid off. He will get 2.5 hours of regular dialysis after that to continue to remove kidney poisons. He had a tunneled dialysis catheter placed yesterday. It is unclear if his kidney function will improve before he goes home. Will check hepatitis studies just in case. I did end up talking with his brother Rodríguez yesterday. (2) Edema: Code(s): R60.9 - Edema, unspecified Status: Acute Assessment and Plan: The patient has a substantial amount of swelling. He is getting furosemide 40mg IV twice a day. His urine output is still somewhat low. Heart failure and proteinuria do not explain the swelling. Sleep apnea may be playing a role. Possibly also due to the renal failure. Does have ascites. Dr. Poole are checked on ultrasound. Liver looked okay. (3) Acute hypoxic respiratory failure: Code(s): J96.01 - Acute respiratory failure with hypoxia Status: Acute Assessment and Plan: The patient is down to 2 L of oxygen. (4) Acute hyperkalemia: Code(s): E87.5 - Hyperkalemia Status: Acute Assessment and Plan: Resolved (5) Hypertension: Code(s): I10 - Essential (primary) hypertension Status: Acute Assessment and Plan: Blood pressure is doing okay. BP meds are on hold (6) Paroxysmal atrial fibrillation: Code(s): I48.0 - Paroxysmal atrial fibrillation Status: Acute Assessment and Plan: Heart rate is good. He is on Eliquis (7) Coronary artery disease: Code(s): I25.10 - Atherosclerotic heart disease of [place] coronary artery without angina pectoris Status: Acute Assessment and Plan: No chest pain (8) Type 2 diabetes mellitus: Code(s): E11.9 - Type 2 diabetes mellitus without complications Status: Acute Assessment and Plan: On Accu-Cheks sliding scale insulin. Management per hospitalist. Subjective Date/time seen: 01/31/24 09:32 Interval history: Thang is feeling a little better. He is more awake today. He did okay in dialysis yesterday. His blood pressure was a bit low but has been better overnight Exam Narrative: WDWN in NAD skin no rash head ncat lungs clear bilaterally cor reg no rub or gallop abd BS+ nontender and soft ext 2+ bilateral edema. Objective Data Vital Signs Vital Signs: Vital Signs - 24 hr 01/30/24 10:00 01/30/24 11:48 01/30/24 12:00 Temperature 97.0 F L Pulse Rate 53 L 53 L Respiratory Rate 20 Blood Pressure 112/49 L Pulse Oximetry 24 L 94 Oxygen Delivery Nasal Cannula Oxygen Flow Rate 2 Fraction of Inspired Oxygen 01/30/24 12:00 01/30/24 14:11 01/30/24 16:42 Temperature 96.9 F L 97 F L Pulse Rate 54 L 52 L 65 Respiratory Rate 18 12 Blood Pressure 107/49 L 91/51 L Pulse Oximetry 92 97 Oxygen Delivery Nasal Cannula Simple Face Mask Oxygen Flow Rate 2 10 Fraction of Inspired Oxygen 01/30/24 16:52 01/30/24 17:00 01/30/24 17:14 Temperature 97 F L Pulse Rate 64 65 66 Respiratory Rate 12 12 12 Blood Press
--- NOTE | 2024-01-31 10:33 | PM.IMPN ---
Progress Note: A&P Assessment and Plan (1) CHF exacerbation: Code(s): I50.9 - Heart failure, unspecified Status: Acute Assessment and Plan: The patient presents with shortness of breath and diffuse edema. CXR showing airspace opacities in all right lung zones and LLL with small right pleural effusion. BNP 4980 EKG showing supraventricular bradycardia and borderline ST-T wave changes. Echo showing EF 60-65% with LV enlargement, diastolic dysfunction and mild pulmonary HTN Patient with acute diastolic CHF but consider related to fluid overload from renal failure. Less likely related to Rt heart failure. He was started on Lasix IV but now off due to climbing Cr. UOP remained poor Decision to start HD and tunnelled catheter placed. Dialysis to improve fluid status. CXR again showing more right sided airspace disease. PNA suspected radiographically but not clinically. No fever/elevated WBC and only minimal cough. Did have soft BP but better now. Rocephin started for possible UTI so will follow for now. (2) Hypoxia: Code(s): R09.02 - Hypoxemia Status: Acute Assessment and Plan: Patient was hypoxic on admisison. CXR as mentioned above. No ABG Not able to do CTA but unlikely he has PE since he is on Eliquis. LE venous doppler negative for DVT [place] related to the fluid overload Was on 4L but able to wean down to 2L (probably could be weaned even further) Not able to tolerate TRISTEN treatment is impacting his other medical problems. Repeat CXR again showing R>L airspace disease. Wean O2 as tolerated Consider ApneaLink to see if he needs O2 at night once he is closer to dry weight Repeat CXR in a few days once his fluid status improves (3) Chronic kidney disease: Code(s): N18.9 - Chronic kidney disease, unspecified Status: Chronic Assessment and Plan: Patient has a hx of CKD and appears to be close to dialysis by his report. Baseline numbers unknown. Cr 3.5 and BUN 98 on admission Renal US showing normal appearing kidneys and ascites. With diuresis, BUN 108 and Cr 4.8 Nephrology consulted and workup was ordered. Abd US sgowing small ascites and no evidence of cirrhosis. Discussed with nephrology and decision to start HD was made. Patient was agreeable General Surgery consulted and a tunnelled catheter placed / HD yesterday abd again today. Use HD to control fluid status. Monitor UOP, renal function and electrolytes (4) Electrolyte abnormality: Code(s): E87.8 - Other disorders of electrolyte and fluid balance, not elsewhere classified Status: Acute Assessment and Plan: Sodium slightly low but stable and is likely related to excess fluid. Na stable Potassium was elevated (6.1) treated with Lokelma. Potassium normal now Mag and Phos level elevated. Calcium low but iPTH elevated Monitor and replace electrolytes as needed. (5) Hypertension: Code(s): I10 - Essential (primary) hypertension Status: Acute Assessment and Plan: Patient's blood pressure was reviewed on 01/30 Blood pressure dropped on 01/29 and Lasix IV, Norvasc, Hydralazine and Toprol XL were held BP dropped to 74/37 with HD last night but better today. Will continue to monitor BP and resume home meds as needed (6) Type 2 diabetes mellitus: Code(s): E11.9 - Type 2 diabetes mellitus without complications Status: Acute Assessment and Plan: A1c 8.2. The patient's blood glucose was reviewed on 01/30 Glucose better controlled. Continue AccuCheks covering with sliding scale. Hypoglycemia protocol available as needed. Continue to monitor on lantus (7) Coronary artery disease: Code(s): I25.10 - Atherosclerotic heart disease of [place] coronary artery without angina pectoris Status: Acute Assessment and Plan: Hx of CAD s/p stent placement Not on ASA or statin. He is on betablocker but having supraventricular bradycardia and now Ho
[2024-01-31] MEDS: ALBUMIN HUMAN 25% 12.5 GM/50ML 100 ML 50 GM (10:49)
[2024-01-31] MEDS: EPOETIN ALFA-EPBX 10,000 UNITS/ML VIAL 10000 UNITS IV PUSH (11:21)
--- NOTE | 2024-01-31 11:41 | PC.NURSE ---
0820 Report given on the pts VS trend to Dr. Sarmiento with no new interventions at this time. The pt is denying distress et none noted
--- NOTE | 2024-01-31 12:05 | PC.NURSE ---
Report called to Ira SIMMONS on 2 medical. Report given that the pt is now in HD et will report to 245 s/p completion of HD treatment. Report called et given to Amira SIMMONS in HD on the change of Room number et RN
--- NOTE | 2024-01-31 12:21 | PC.NURSE ---
Unable to complete Eucerin ointment as ordered due to the medication not being on the unit prior to the pt transferring to HD. Will tube to 2 medical.
[2024-01-31] MEDS: EUCERIN CREAM 120 GM JAR 1 APPLIC TOPICAL (14:48)
[2024-01-31] MEDS: polyethylene glycoL 3350 17 GM POWD.PACK PO (14:48)
[2024-01-31 16:58] LABS: Glucose Point of Care 118 mg/dl (65-105)
[2024-01-31 19:57] LABS: Glucose Point of Care 131 mg/dl (65-105)
[2024-01-31] MEDS: INSULIN GLARGINE (*BKC) 100 UNITS/ML 12 UNITS SUB-Q (20:35)
[2024-01-31 21:11] LABS: Kappa\\Lambda Light Chains 1.69 (0.26-1.65); Lambda Light Chain 74.9 mg/L (5.7-26.3)
[2024-02-01] VITALS (26 sets, daily range): BP systolic 105–150; BP diastolic 49–73; PULSE 73–88; RESP 16–20; TEMP 36.5–37; O2SAT 90–97
[2024-02-01 05:43] LABS: Hemoglobin 10.1 g/dL (14.0-18.0); Mean Corpuscular HGB Conc 29.7 g/dl (32-36); Mean Corpuscular Hemoglobin 27.4 pg (26-34); Mean Corpuscular Volume 92.1 fl (80-100); Mean Platelet Volume 10.5 fl (7.4-10.4); Platelet Count Result 149 k/mm3 (150-375); Red Blood Count 3.69 M/mm3 (4.6-6.20); Red Cell Distribution Width 16.5 % (11.5-14.5)
[2024-02-01 05:57] LABS: Albumin Level 3.7 g/dL (3.5-5.1); Anion Gap 7 mmol/L (8-16); Blood Urea Nitrogen 67 mg/dL (9-20); Calcium 8.2 mg/dL (8.4-10.2); Carbon Dioxide 30 mmol/L (22-30); Chloride 96 mmol/L (98-107); Estimated CRCL calculation 26 ml/min; Estimated Glomerular Filt Rate 15; Glucose 91 mg/dL (65-110); Phosphorus 5.8 mg/dL (2.5-4.5); Potassium 4.9 mmol/L (3.4-5.0); Sodium 133 mmol/L (137-145)
[2024-02-01 08:21] LABS: Glucose Point of Care 95 mg/dl (65-105)
[2024-02-01] MEDS: PANTOPRAZOLE 40 MG TABLET PO ×2 (08:26→17:11)
[2024-02-01] MEDS: TAMSULOSIN HCL 0.4 MG CAPSULE PO (08:26)
--- NOTE | 2024-02-01 08:35 | PC.NURSE ---
Patient to dialysis @ 2839
--- NOTE | 2024-02-01 08:45 | PCOTNOTE ---
Attempted to see pt. for occupational therapy evalution. Pt. away from room for dialysis. Nursing aware.
[2024-02-01] MEDS: ALBUMIN HUMAN 25% 25 GM/100 ML 100 ML IVPB (08:54)
--- NOTE | 2024-02-01 09:05 | PM.PNNEP ---
Progress Note: A&P Assessment and Plan (1) Chronic kidney disease: Code(s): N18.9 - Chronic kidney disease, unspecified Status: Chronic Assessment and Plan: Patient has an elevated creatinine. Acute versus acute on chronic versus pure chronic. Urine electrolytes show pre renal azotemia. He has only 419mg of protein per g of creatinine. CK is normal Renal ultrasound shows normal kidney size and no hydronephrosis. Normal echogenicity. There is ascites. Echo shows mild pulmonary hypertension with the pulmonary artery systolic pressure of 43. Elevated right atrial pressure. Cultures are all pending/negative so far He had his 2nd dialysis yesterday and it went well. Will get another dialysis today. Will do 3hours and 300 blood flow and take off 2-3 L as tolerated. Blood pressure looks better. Will give a dose of albumin before the treatment this time as well. It is unclear if his kidney function will improve before he goes home. Hepatitis studies pending. He has a tunneled dialysis catheter. (2) Edema: Code(s): R60.9 - Edema, unspecified Status: Acute Assessment and Plan: The patient has a substantial amount of swelling. He is getting furosemide 40mg IV twice a day. Since he is on dialysis will switch to 80mg p.o. twice a day We can probably pull the catheter if okay with hospitalist Swelling is most likely related to the decreased kidney function (3) Acute hypoxic respiratory failure: Code(s): J96.01 - Acute respiratory failure with hypoxia Status: Acute Assessment and Plan: The patient is down to 2 L of oxygen. This will hopefully improve as we remove fluid (4) Acute hyperkalemia: Code(s): E87.5 - Hyperkalemia Status: Acute Assessment and Plan: Resolved (5) Hypertension: Code(s): I10 - Essential (primary) hypertension Status: Acute Assessment and Plan: Blood pressure is doing okay. BP meds are on hold (6) Paroxysmal atrial fibrillation: Code(s): I48.0 - Paroxysmal atrial fibrillation Status: Acute Assessment and Plan: Heart rate is good. He is on Eliquis (7) Coronary artery disease: Code(s): I25.10 - Atherosclerotic heart disease of [place] coronary artery without angina pectoris Status: Acute Assessment and Plan: No chest pain (8) Type 2 diabetes mellitus: Code(s): E11.9 - Type 2 diabetes mellitus without complications Status: Acute Assessment and Plan: On Accu-Cheks sliding scale insulin. Management per hospitalist. (9) Hyperphosphatemia: Code(s): E83.39 - Other disorders of phosphorus metabolism Status: Acute Assessment and Plan: The patient's phosphorus was 5.8 this morning. Will follow this along and add binders if needed. Subjective Date/time seen: 02/01/24 09:05 Interval history: Patient had a rough night. He was constipated and did receive an enema and has had some results. No chest pain or shortness of breath Still very swollen Exam Narrative: WDWN in NAD skin no rash or subQ nodules head ncat lungs clear bilaterally cor reg no rub or gallop abd BS+ nontender and soft ext 2+ bilateral edema. Objective Data Vital Signs Vital Signs: Vital Signs - 24 hr 01/31/24 09:24 01/31/24 09:24 01/31/24 09:34 Temperature 97.5 F L Pulse Rate 67 66 Respiratory Rate 18 Blood Pressure 123/60 120/60 Pulse Oximetry 100 Oxygen Delivery Oxygen Flow Rate 2 Fraction of Inspired Oxygen 0 01/31/24 09:45 01/31/24 10:00 01/31/24 10:15 Temperature Pulse Rate 68 69 68 Respiratory Rate Blood Pressure 117/59 L 104/53 L 98/46 L Pulse Oximetry Oxygen Delivery Oxygen Flow Rate Fraction of Inspired Oxygen 01/31/24 10:30 01/31/24 10:34 01/31/24 10:45 Temperature Pulse Rate 69 68 68 Respiratory Rate Blood Pressure 100/54 L 109/55 L 116/60 Pulse
[2024-02-01] MEDS: SODIUM CHLORIDE 0.9% IV 1,000 ML 999 ML IV CONT (09:16)
[2024-02-01] MEDS: HEPARIN SODIUM 1,000 UNITS/ML VIAL 5000 UNITS (09:16)
[2024-02-01] MEDS: EPOETIN ALFA-EPBX 10,000 UNITS/ML VIAL 10000 UNITS IV PUSH (10:11)
[2024-02-01 12:26] LABS: Glucose Point of Care 82 mg/dl (65-105)
[2024-02-01] MEDS: CHOLECALCIFEROL 1,000 UNITS TABLET 5000 UNITS PO (12:33)
[2024-02-01] MEDS: DULoxetine HCL 30 MG CAPSULE.DR PO (12:34)
[2024-02-01] MEDS: ASCORBIC ACID 500 MG TABLET PO (12:34)
[2024-02-01] MEDS: allopurinoL 100 MG TABLET PO (12:34)
[2024-02-01] MEDS: THERAPEUTIC MULTIVITAMINS/MINERALS TAB (*BKC) 1 TABLET PO (12:34)
[2024-02-01] MEDS: polyethylene glycoL 3350 17 GM POWD.PACK PO (12:35)
[2024-02-01] MEDS: FERROUS SULFATE 325 MG TABLET DR PO (12:35)
[2024-02-01] MEDS: TOLNAFTATE 1% POWDER 45 GM BTL 1 APPLIC TOPICAL ×2 (12:36→20:41)
[2024-02-01] MEDS: EUCERIN CREAM 120 GM JAR 1 APPLIC TOPICAL (12:36)
--- NOTE | 2024-02-01 12:47 | PM.IMPN ---
Progress Note: A&P Assessment and Plan (1) CHF exacerbation: Code(s): I50.9 - Heart failure, unspecified Status: Acute Assessment and Plan: The patient presents with shortness of breath and diffuse edema. CXR showing airspace opacities in all right lung zones and LLL with small right pleural effusion. BNP 4980 EKG showing supraventricular bradycardia and borderline ST-T wave changes. Echo showing EF 60-65% with LV enlargement, diastolic dysfunction and mild pulmonary HTN Patient with acute diastolic CHF but consider related to fluid overload from renal failure. Less likely related to Rt heart failure. He was started on Lasix IV but now off due to climbing Cr. UOP remained poor Decision to start HD and tunnelled catheter placed. CXR again showing more right sided airspace disease. PNA suspected radiographically but not clinically (No fever/elevated WBC and only minimal cough) BCx NGTD. UCx pending Continue Dialysis to improve fluid status. Rocephin started for possible UTI so will follow for now. (2) Hypoxia: Code(s): R09.02 - Hypoxemia Status: Acute Assessment and Plan: Patient was hypoxic on admisison. CXR as mentioned above. No ABG Not able to do CTA but unlikely he has PE since he is on Eliquis. LE venous doppler negative for DVT [place] related to the fluid overload Was on 4L but able to wean down to 2L (probably could be weaned even further) Not able to tolerate TRISTEN treatment is impacting his other medical problems. Repeat CXR again showing R>L airspace disease. Wean O2 as tolerated Consider ApneaLink to see if he needs O2 at night once he is closer to dry weight Repeat CXR in a few days once his fluid status improves (3) Chronic kidney disease: Code(s): N18.9 - Chronic kidney disease, unspecified Status: Chronic Assessment and Plan: Patient has a hx of CKD and appears to be close to dialysis by his report. Baseline numbers unknown. Cr 3.5 and BUN 98 on admission Renal US showing normal appearing kidneys and ascites. With diuresis, BUN 108 and Cr 4.8 Nephrology consulted and workup was ordered. Liam 24, FENa 0.4% c/w pre-renal Abd US shows small ascites and no evidence of cirrhosis. Discussed with nephrology and decision to start HD was made. Patient was agreeable General Surgery consulted and a tunnelled catheter placed 01/29 HD 01/29, 01/30 and again today. Use HD to control fluid status. Monitor UOP, renal function and electrolytes (4) Electrolyte abnormality: Code(s): E87.8 - Other disorders of electrolyte and fluid balance, not elsewhere classified Status: Acute Assessment and Plan: Sodium slightly low but stable and is likely related to excess fluid. Na stable Potassium was elevated (6.1) treated with Lokelma. Potassium normal now Phos level elevated. Calcium low but iPTH elevated Monitor and replace electrolytes as needed. (5) Hypertension: Code(s): I10 - Essential (primary) hypertension Status: Acute Assessment and Plan: Patient's blood pressure was reviewed on 01/31 Blood pressure dropped on 01/29 and Lasix IV, Norvasc, Hydralazine and Toprol XL were held Will continue to monitor BP and resume home meds as needed (6) Type 2 diabetes mellitus: Code(s): E11.9 - Type 2 diabetes mellitus without complications Status: Acute Assessment and Plan: A1c 8.2. The patient's blood glucose was reviewed on 01/31 Glucose too well controlled. Continue AccuCheks covering with sliding scale. Hypoglycemia protocol available as needed. Will decrease Lantus (7) Coronary artery disease: Code(s): I25.10 - Atherosclerotic heart disease of [place] coronary artery without angina pectoris Status: Acute Assessment and Plan: Hx of CAD s/p stent placement Not on ASA or statin. He is on betablocker but having supraventricular bradycardia and now HoTN. Metoprolol held. Monitor on tele (8)
--- NOTE | 2024-02-01 13:45 | PCPTNOTE ---
attempted PT evaluation, pt refused at this time, pt was a little emotional and states he is not feeling good, reports he is most concerned about having a bowel movement, informed pt that we will try again at a later time
[2024-02-01 15:42] LABS: Complement Total CH50 >60 U/mL (31-60)
[2024-02-01] MEDS: BISACODYL 10 MG SUPPOSITORY RECTAL (15:48)
[2024-02-01] MEDS: MAGNESIUM OXIDE 400 MG TABLET PO (17:10)
[2024-02-01 17:25] LABS: Glucose Point of Care 86 mg/dl (65-105)
[2024-02-01 20:18] LABS: Glucose Point of Care 86 mg/dl (65-105)
[2024-02-01] MEDS: APIXABAN 2.5 MG TABLET PO (20:37)
[2024-02-02] VITALS (9 sets, daily range): BP systolic 139–147; BP diastolic 51–64; PULSE 84–103; RESP 18; TEMP 36.8–37.1; O2SAT 92–100; BMI 10.0
[2024-02-02 06:04] LABS: Albumin Level 3.4 g/dL (3.5-5.1); Anion Gap 7 mmol/L (8-16); Blood Urea Nitrogen 53 mg/dL (9-20); Calcium 8.3 mg/dL (8.4-10.2); Carbon Dioxide 31 mmol/L (22-30); Chloride 97 mmol/L (98-107); Estimated CRCL calculation 34 ml/min; Estimated Glomerular Filt Rate 21; Glucose 95 mg/dL (65-110); Phosphorus 4.3 mg/dL (2.5-4.5); Potassium 4.8 mmol/L (3.4-5.0); Sodium 135 mmol/L (137-145)
[2024-02-02] MEDS: DULoxetine HCL 30 MG CAPSULE.DR PO (08:00)
[2024-02-02] MEDS: FERROUS SULFATE 325 MG TABLET DR PO (08:00)
[2024-02-02] MEDS: PANTOPRAZOLE 40 MG TABLET PO ×2 (08:00→16:06)
[2024-02-02] MEDS: TAMSULOSIN HCL 0.4 MG CAPSULE PO (08:01)
[2024-02-02] MEDS: VITAMIN B CMPLX/VIT C/FOLIC AC 1 CAPSULE 1 CAP PO (08:01)
[2024-02-02] MEDS: EUCERIN CREAM 120 GM JAR 1 APPLIC TOPICAL (08:01)
[2024-02-02] MEDS: allopurinoL 100 MG TABLET PO (08:01)
[2024-02-02] MEDS: APIXABAN 2.5 MG TABLET PO ×2 (08:01→20:52)
[2024-02-02] MEDS: CHOLECALCIFEROL 1,000 UNITS TABLET 5000 UNITS PO (08:01)
[2024-02-02] MEDS: TOLNAFTATE 1% POWDER 45 GM BTL 1 APPLIC TOPICAL ×2 (08:01→20:52)
[2024-02-02] MEDS: MAGNESIUM OXIDE 400 MG TABLET PO ×2 (08:01→16:06)
[2024-02-02] MEDS: ASCORBIC ACID 500 MG TABLET PO (08:01)
[2024-02-02] MEDS: THERAPEUTIC MULTIVITAMINS/MINERALS TAB (*BKC) 1 TABLET PO (08:01)
[2024-02-02 08:16] LABS: Glucose Point of Care 91 mg/dl (65-105)
[2024-02-02] MEDS: VANCOMYCIN 2,000 MG/NS 500 ML 2,000 MG/500 ML BAG 250 MG IVPB (08:17)
[2024-02-02 12:17] LABS: Glucose Point of Care 98 mg/dl (65-105)
--- NOTE | 2024-02-02 14:06 | PM.PNNEP ---
Progress Note: A&P Assessment and Plan (1) Chronic kidney disease: Code(s): N18.9 - Chronic kidney disease, unspecified Status: Chronic Assessment and Plan: Patient has an elevated creatinine. Acute versus acute on chronic versus pure chronic. Urine electrolytes show pre renal azotemia. He has only 419mg of protein per g of creatinine. CK is normal Renal ultrasound shows normal kidney size and no hydronephrosis. Normal echogenicity. There is ascites. Echo shows mild pulmonary hypertension with the pulmonary artery systolic pressure of 43. Elevated right atrial pressure. Cultures are all pending/negative so far He had his 3rd dialysis yesterday and it went well. Will get another dialysis tomorrow 3-1/2 hours and max blood flow. His blood pressure has improved. Now it is up to 147. He will probably be able to get more fluid off tomorrow. I asked Case Management to go ahead and set him up for dialysis at [facility] in case he continues to need dialysis. I suspect that he will need it for at least a few weeks if not permanently. (2) Edema: Code(s): R60.9 - Edema, unspecified Status: Acute Assessment and Plan: The patient has a substantial amount of swelling. He is getting furosemide 40mg IV twice a day. Since he is on dialysis will switch to 80mg p.o. twice a day We can probably pull the [place] catheter if okay with hospitalist Swelling is most likely related to the decreased kidney function (3) Acute hypoxic respiratory failure: Code(s): J96.01 - Acute respiratory failure with hypoxia Status: Acute Assessment and Plan: The patient is down to 2 L of oxygen. This will hopefully improve as we remove fluid (4) Acute hyperkalemia: Code(s): E87.5 - Hyperkalemia Status: Acute Assessment and Plan: Resolved (5) Hypertension: Code(s): I10 - Essential (primary) hypertension Status: Acute Assessment and Plan: Blood pressure is doing okay. BP meds are on hold Begin full these back in if taking fluid off tomorrow does not bring the blood pressure down. (6) Paroxysmal atrial fibrillation: Code(s): I48.0 - Paroxysmal atrial fibrillation Status: Acute Assessment and Plan: Heart rate is good. He is on Eliquis (7) Coronary artery disease: Code(s): I25.10 - Atherosclerotic heart disease of [place] coronary artery without angina pectoris Status: Acute Assessment and Plan: No chest pain (8) Type 2 diabetes mellitus: Code(s): E11.9 - Type 2 diabetes mellitus without complications Status: Acute Assessment and Plan: On Accu-Cheks sliding scale insulin. Management per hospitalist. (9) Hyperphosphatemia: Code(s): E83.39 - Other disorders of phosphorus metabolism Status: Acute Assessment and Plan: The patient's phosphorus was 4.3 today. He is on sevelamer Subjective Date/time seen: 02/02/24 14:06 Interval history: Patient feels okay today He vomited up breakfast but is doing okay with lot Exam Narrative: WDWN in NAD skin no rash or subQ nodules head ncat lungs clear to auscultation cor reg no rub or gallop abd BS+ nontender ext 2+ bilateral edema. Objective Data Vital Signs Vital Signs: Vital Signs - 24 hr 02/01/24 14:37 02/01/24 16:00 02/01/24 19:56 Temperature 98.1 F 98.5 F Pulse Rate 84 88 86 Respiratory Rate 20 18 Blood Pressure 134/63 150/49 H Pulse Oximetry 96 97 Oxygen Delivery Oxygen Flow Rate 02/01/24 20:00 02/02/24 00:00 02/01/24 20:00 Temperature 98.8 F Pulse Rate 87 87 Respiratory Rate 18 Blood Pressure 146/57 H Pulse Oximetry 97 94 Oxygen Delivery Nasal Cannula Oxygen Flow Rate 2 02/02/24 00:00 02/02/24 04:00 02/02/24 04:00 Temperature 98.4 F Pulse Rate 87 87 89 Respiratory Rate 18 Blood Pressure 147/51 H Pulse Oximetry 92 Oxygen Delivery
[2024-02-02] MEDS: FUROSEMIDE 80 MG TABLET PO (16:06)
--- NOTE | 2024-02-02 16:16 | PM.IMPN ---
Progress Note: A&P Assessment and Plan (1) CHF exacerbation: Code(s): I50.9 - Heart failure, unspecified Status: Acute Assessment and Plan: The patient presents with shortness of breath and diffuse edema. CXR showing airspace opacities in all right lung zones and LLL with small right pleural effusion. BNP 4980 EKG showing supraventricular bradycardia and borderline ST-T wave changes. Echo showing EF 60-65% with LV enlargement, diastolic dysfunction and mild pulmonary HTN Patient with acute diastolic CHF related to fluid overload from renal failure. Less likely related to Rt heart failure. He was started on Lasix IV but stopped due to climbing Cr. UOP remained poor Decision to start HD and tunnelled catheter placed. BCx NGTD. UCx enterococcus Continue Dialysis to improve fluid status. Rocephin started but will change to Vancomycin (2) Hypoxia: Code(s): R09.02 - Hypoxemia Status: Acute Assessment and Plan: Patient was hypoxic on admission. CXR as mentioned above. No ABG Not able to do CTA but unlikely he has PE since he is on Eliquis. LE venous doppler negative for DVT [place] related to the fluid overload Was on 4L but able to wean down to 2L Not able to tolerate TRISTEN treatment which is impacting his other medical problems. Repeat CXR again showing R>L airspace disease. Wean O2 as tolerated Consider ApneaLink to see if he needs O2 at night once he is closer to dry weight Repeat CXR shows improvement so doubt PNA (3) Chronic kidney disease: Code(s): N18.9 - Chronic kidney disease, unspecified Status: Chronic Assessment and Plan: Patient has a hx of CKD and appears to be close to dialysis by his report. Baseline numbers unknown. Old records requested but none have arrived Cr 3.5 and BUN 98 on admission Renal US showing normal appearing kidneys and ascites. With diuresis, BUN 108 and Cr 4.8 Nephrology consulted and workup was ordered. Liam 24, FENa 0.4% c/w pre-renal Abd US shows small ascites and no evidence of cirrhosis. Discussed with nephrology and decision to start HD was made. Patient was agreeable General Surgery consulted and a tunnelled catheter placed 01/29 HD 01/29, 01/30 and 01/31. Use HD to control fluid status. Lasix po started. Monitor UOP, renal function and electrolytes (4) Electrolyte abnormality: Code(s): E87.8 - Other disorders of electrolyte and fluid balance, not elsewhere classified Status: Acute Assessment and Plan: Sodium was slightly low but stable and is likely related to excess fluid. Na better Potassium was elevated (6.1) treated with Lokelma but now stopped. Potassium normal now. Phos level better Calcium slightly low but iPTH elevated Monitor and replace electrolytes as needed. (5) Hypertension: Code(s): I10 - Essential (primary) hypertension Status: Acute Assessment and Plan: Patient's blood pressure was reviewed on 02/01 Blood pressure dropped on 01/29 and Lasix IV, Norvasc, Hydralazine and Toprol XL were held BP mildly elevated. Will continue to monitor BP and resume home meds as needed (6) Type 2 diabetes mellitus: Code(s): E11.9 - Type 2 diabetes mellitus without complications Status: Acute Assessment and Plan: A1c 8.2. The patient's blood glucose was reviewed on 02/01 Glucose still too well controlled. Continue AccuCheks covering with sliding scale. Hypoglycemia protocol available as needed. Will stop Lantus (7) Coronary artery disease: Code(s): I25.10 - Atherosclerotic heart disease of [place] coronary artery without angina pectoris Status: Acute Assessment and Plan: Hx of CAD s/p stent placement Not on ASA or statin. He is on betablocker but was having supraventricular bradycardia and HoTN. Metoprolol held. Monitor on tele (8) Paroxysmal atrial fibrillation: Code(s): I48.0 - Paroxysmal atrial fibrillation Status: Acute
[2024-02-02 17:36] LABS: Glucose Point of Care 150 mg/dl (65-105)
[2024-02-02 21:52] LABS: Glucose Point of Care 151 mg/dl (65-105)
[2024-02-03] VITALS (23 sets, daily range): BP systolic 110–148; BP diastolic 46–73; PULSE 82–104; RESP 16–19; TEMP 36.6–37; O2SAT 90–96
[2024-02-03 05:09] LABS: Hematocrit 35.5 % (42.0-52.0); Hemoglobin 10.5 g/dL (14.0-18.0); Mean Corpuscular HGB Conc 29.6 g/dl (32-36); Mean Corpuscular Hemoglobin 27.4 pg (26-34); Mean Corpuscular Volume 92.7 fl (80-100); Mean Platelet Volume 10.2 fl (7.4-10.4); Platelet Count Result 150 k/mm3 (150-375); Red Blood Count 3.83 M/mm3 (4.6-6.20); Red Cell Distribution Width 16.4 % (11.5-14.5); White Blood Count 6.5 K/mm3 (4.5-10.0)
[2024-02-03 05:20] LABS: Albumin Level 3.7 g/dL (3.5-5.1); Anion Gap 6 mmol/L (8-16); Blood Urea Nitrogen 51 mg/dL (9-20); Calcium 8.6 mg/dL (8.4-10.2); Carbon Dioxide 31 mmol/L (22-30); Chloride 96 mmol/L (98-107); Estimated CRCL calculation 27 ml/min; Estimated Glomerular Filt Rate 16; Glucose 148 mg/dL (65-110); Phosphorus 4.3 mg/dL (2.5-4.5); Potassium 4.6 mmol/L (3.4-5.0); Sodium 133 mmol/L (137-145)
[2024-02-03 06:08] LABS: Vancomycin Random 10.7 ug/mL (10-20)
[2024-02-03] MEDS: CHOLECALCIFEROL 1,000 UNITS TABLET 5000 UNITS PO (08:01)
[2024-02-03] MEDS: TAMSULOSIN HCL 0.4 MG CAPSULE PO (08:01)
[2024-02-03] MEDS: ASCORBIC ACID 500 MG TABLET PO (08:02)
[2024-02-03] MEDS: FERROUS SULFATE 325 MG TABLET DR PO (08:02)
[2024-02-03] MEDS: PANTOPRAZOLE 40 MG TABLET PO ×2 (08:02→16:50)
[2024-02-03] MEDS: APIXABAN 2.5 MG TABLET PO ×2 (08:02→20:23)
[2024-02-03] MEDS: VITAMIN B CMPLX/VIT C/FOLIC AC 1 CAPSULE 1 CAP PO (08:02)
[2024-02-03] MEDS: MAGNESIUM OXIDE 400 MG TABLET PO ×2 (08:02→16:50)
[2024-02-03] MEDS: FUROSEMIDE 80 MG TABLET PO ×2 (08:02→16:50)
[2024-02-03] MEDS: DULoxetine HCL 30 MG CAPSULE.DR PO (08:02)
[2024-02-03] MEDS: THERAPEUTIC MULTIVITAMINS/MINERALS TAB (*BKC) 1 TABLET PO (08:02)
[2024-02-03] MEDS: EUCERIN CREAM 120 GM JAR 1 APPLIC TOPICAL (08:02)
[2024-02-03] MEDS: allopurinoL 100 MG TABLET PO (08:02)
[2024-02-03] MEDS: TOLNAFTATE 1% POWDER 45 GM BTL 1 APPLIC TOPICAL ×2 (08:02→20:24)
[2024-02-03] MEDS: oxyCODONE/ACETAMINOPHEN (*CRX) 5-325 MG TABLET 1 TABLET PO (08:07)
[2024-02-03 08:24] LABS: Glucose Point of Care 155 mg/dl (65-105)
[2024-02-03] MEDS: ALBUMIN HUMAN 25% 12.5 GM/50ML 50 ML IVPB (09:36)
--- NOTE | 2024-02-03 09:45 | PM.PNNEP ---
Progress Note: A&P Assessment and Plan (1) BILLIE (acute kidney injury): Code(s): N17.9 - Acute kidney failure, unspecified Status: Acute Assessment and Plan: known history of chronic kidney disease (see #2) however, how much of renal dysfunction at this time is acute versus progression of CKD... evaluation to date: urine electrolytes prerenal CPK normal renal ultrasound normal (ascites noted) Echo with mild pulmonary HTN and elevated right atrial pressure initiated on SLIP PRESSER/dialysis for optimization of volume status. electrolyte control, and clearance HD today continue HD on M// schedule for now follow trend of repeat labs and UOP for potential renal recovery outpatient dialysis being arranged (2) Chronic kidney disease: Code(s): N18.9 - Chronic kidney disease, unspecified Status: Chronic Assessment and Plan: previous testing in April 2023 with a creatinine running around 1.4 - 1.5mg/dl unfortunately, no other blood work done more recently presumably due to HTN, DM, and vascular disease along with CHF requiring diuretic therapy (3) Edema: Code(s): R60.9 - Edema, unspecified Status: Acute Assessment and Plan: significant swelling/edema/anasarca noted aggressive fluid removal with dialysis continue diuretic therapy since makes urine follow volume status closely (4) Acute hypoxic respiratory failure: Code(s): J96.01 - Acute respiratory failure with hypoxia Status: Acute Assessment and Plan: suspect related to volume oveload this should hopefully improve with fluid removal wean oxuygen as tolerated follow CXR results (5) Hypertension: Code(s): I10 - Essential (primary) hypertension Status: Chronic Assessment and Plan: reasonable control suspect ongoing fluid removal with HD and diuresis helping follow trend of hemodynamics resume BP medications if needed (6) Paroxysmal atrial fibrillation: Code(s): I48.0 - Paroxysmal atrial fibrillation Status: Acute Assessment and Plan: rate control strategy on anticoagulation (7) Type 2 diabetes mellitus: Code(s): E11.9 - Type 2 diabetes mellitus without complications Status: Chronic Assessment and Plan: follow accu-cheks on SSI glycemin control per hospitalist Will continue to follow. Subjective Date/time seen: 02/03/24 09:45 Interval history: Follow-up for presumed acute kidney injury on chronic kidney disease now requiring renal replacement therapy/dialysis. Chart reviewed -- assuming care from Dr. Slaughter; tolerating dialysis treatment at the time of my visit (seen on HD at 9:35AM); still with some issues related to shortness of breath and still requiring oxygen but overall, he seems to be doing better; still making urine output as well; no apparent distress. Exam Narrative: General: large male in NAD Heart: normal S1 and S2; no rub Lungs: clear anteriorly; decreased at bases Abdomen: soft, nontender, nondistended, positive bowel sounds Extremities: no cyanosis or clubbing; 2+ edema Skin: warm and dry Objective Data Vital Signs Vital Signs: Vital Signs Temp Pulse Resp BP Pulse Ox O2 Del Method O2 Flow Rate 02/03/24 08:33 98.2 F 104 H 19 139/64 96 02/03/24 08:33 2 02/03/24 08:49 96 Nasal Cannula 2 02/03/24 08:00 96 Nasal Cannula 2 02/03/24 08:00 95 02/03/24 04:00 98.2 F 100 18 148/59 H 90 02/03/24 04:00 94 02/03/24 00:00 97.9 F 92 18 133/60 91 02/02/24 20:00 84 18 99 Nasal Cannula 2 02/03/24 00:00 83 02/02/24 20:00 84 02/02/24 20:00 98.2 F 85 18 139/64 100 02/02/24 16:00 102 H 02/02/24 15:07 98.2 F 88 18 145/61 H 97 02/02/24 13:52 93 Nasal Cannula 2 Intake/Output Intake/Output: Intake & Output 01/31/24 02/01/24 02/02/24 02/03/24 23:
--- NOTE | 2024-02-03 09:45 | P.PNNP_ITS ---
Progress Note: A&P Assessment and Plan (1) BILLIE (acute kidney injury): Code(s): N17.9 - Acute kidney failure, unspecified Status: Acute Assessment and Plan: * known history of chronic kidney disease (see #2) * however, how much of renal dysfunction at this time is acute versus progression of CKD... * evaluation to date: * urine electrolytes prerenal * CPK normal * renal ultrasound normal (ascites noted) * Echo with mild pulmonary HTN and elevated right atrial pressure * initiated on MANAGING BROKER/dialysis for optimization of volume status. electrolyte control, and clearance * HD today * continue HD on // schedule for now * follow trend of repeat labs and UOP for potential renal recovery * outpatient dialysis being arranged (2) Chronic kidney disease: Code(s): N18.9 - Chronic kidney disease, unspecified Status: Chronic Assessment and Plan: * previous testing in April 2023 with a creatinine running around 1.4 - 1.5mg/dl * unfortunately, no other blood work done more recently * presumably due to HTN, DM, and vascular disease along with CHF requiring diuretic therapy (3) Edema: Code(s): R60.9 - Edema, unspecified Status: Acute Assessment and Plan: * significant swelling/edema/anasarca noted * aggressive fluid removal with dialysis * continue diuretic therapy since makes urine * follow volume status closely (4) Acute hypoxic respiratory failure: Code(s): J96.01 - Acute respiratory failure with hypoxia Status: Acute Assessment and Plan: * suspect related to volume oveload * this should hopefully improve with fluid removal * wean oxuygen as tolerated * follow CXR results (5) Hypertension: Code(s): I10 - Essential (primary) hypertension Status: Chronic Assessment and Plan: * reasonable control * suspect ongoing fluid removal with HD and diuresis helping * follow trend of hemodynamics * resume BP medications if needed (6) Paroxysmal atrial fibrillation: Code(s): I48.0 - Paroxysmal atrial fibrillation Status: Acute Assessment and Plan: * rate control strategy * on anticoagulation (7) Type 2 diabetes mellitus: Code(s): E11.9 - Type 2 diabetes mellitus without complications Status: Chronic Assessment and Plan: * follow accu-cheks * on SSI * glycemin control per hospitalist Will continue to follow. Subjective Date/time seen: 02/03/24 09:45 Interval history: Follow-up for presumed acute kidney injury on chronic kidney disease now requiring renal replacement therapy/dialysis. Chart reviewed -- assuming care from Dr. Slaughter; tolerating dialysis treatment at the time of my visit (seen on HD at 9:35AM); still with some issues related to shortness of breath and still requiring oxygen but overall, he seems to be doing better; still making urine output as well; no apparent distress. Exam Narrative: General: large male in NAD Heart: normal S1 and S2; no rub Lungs: clear anteriorly; decreased at bases Abdomen: soft, nontender, nondistended, positive bowel sounds Extremities: no cyanosis or clubbing; 2+ edema Skin: warm and dry Objective Data Vital Signs Vital Signs: Vital Signs Temp Pulse Resp BP Pulse Ox O2 Del Method O2 Flow Rate 02/03/24 08:33 98.2 F 104 H 19 139/64 96
[2024-02-03] MEDS: EPOETIN ALFA-EPBX 10,000 UNITS/ML VIAL 10000 UNITS IV PUSH (11:05)
[2024-02-03 12:56] LABS: Glucose Point of Care 106 mg/dl (65-105)
--- NOTE | 2024-02-03 15:52 | PM.IMPN ---
Progress Note: A&P Assessment and Plan (1) CHF exacerbation: Code(s): I50.9 - Heart failure, unspecified Status: Acute Assessment and Plan: The patient presents with shortness of breath and diffuse edema. CXR showing airspace opacities in all right lung zones and LLL with small right pleural effusion. BNP 4980 EKG showing supraventricular bradycardia and borderline ST-T wave changes. Not able to do CTA but unlikely he has PE since he is on Eliquis. LE venous doppler negative for DVT Echo showing EF 60-65% with LV enlargement, diastolic dysfunction and mild pulmonary HTN Patient with acute diastolic CHF related to fluid overload from renal failure. Less likely related to Rt heart failure. He was started on Lasix IV but stopped due to climbing Cr. UOP remained poor Decision to start HD and tunnelled catheter placed. Was on 4L but able to wean down to 2L Repeat CXR shows improvement so doubt PNA BCx NGTD. UCx enterococcus Continue Dialysis to improve fluid status. Lasix resumed. Wean o2 as tolerated Consider ApneaLink to see if he needs O2 at night once he is closer to dry weight (2) Chronic kidney disease: Code(s): N18.9 - Chronic kidney disease, unspecified Status: Chronic Assessment and Plan: Patient has a hx of CKD and appears to be close to dialysis by his report. Baseline numbers unknown. Old records requested but none have arrived Cr 3.5 and BUN 98 on admission Renal US showing normal appearing kidneys and ascites. With diuresis, BUN 108 and Cr 4.8 Nephrology consulted and workup was ordered. Liam 24, FENa 0.4% c/w pre-renal Abd US shows small ascites and no evidence of cirrhosis. Discussed with nephrology and decision to start HD was made. Patient was agreeable General Surgery consulted and a tunnelled catheter placed 01/29 HD 01/29, 01/30, 01/31 and today. Use HD to control fluid status. Lasix po started. Monitor UOP, renal function and electrolytes (3) Electrolyte abnormality: Code(s): E87.8 - Other disorders of electrolyte and fluid balance, not elsewhere classified Status: Acute Assessment and Plan: Sodium was slightly low but stable and is likely related to excess fluid. Na stable Potassium was elevated (6.1) treated with Lokelma but now stopped. Potassium normal now. Phos level better Calcium slightly low but iPTH elevated Monitor and replace electrolytes as needed. (4) Hypertension: Code(s): I10 - Essential (primary) hypertension Status: Acute Assessment and Plan: Patient's blood pressure was reviewed on 02/02 Blood pressure dropped on 01/29 and Lasix IV, Norvasc, Hydralazine and Toprol XL were held BP well controlled Will continue to monitor BP and resume home meds as needed (5) UTI (urinary tract infection): Code(s): N39.0 - Urinary tract infection, site not specified Status: Acute Assessment and Plan: UA is consistent with UTI. UCx collected. Rocephin started but changed to Vanco when UCx grew Enterococcus. UCx noted. Change to Amoxicillin (6) Type 2 diabetes mellitus: Code(s): E11.9 - Type 2 diabetes mellitus without complications Status: Acute Assessment and Plan: A1c 8.2. The patient's blood glucose was reviewed on 02/02 Glucose well controlled. Continue AccuCheks covering with sliding scale. Hypoglycemia protocol available as needed. Off Lantus now. Follow (7) Coronary artery disease: Code(s): I25.10 - Atherosclerotic heart disease of [place] coronary artery without angina pectoris Status: Acute Assessment and Plan: Hx of CAD s/p stent placement Not on ASA or statin. He is on betablocker but was having supraventricular bradycardia and HoTN. Metoprolol held. Monitor on tele (8) Paroxysmal atrial fibrillation: Code(s): I48.0 - Paroxysmal atrial fibrillation Status: Acute Assessment and Plan: As above. Rate controlled [place]
[2024-02-03 16:50] LABS: Glucose Point of Care 124 mg/dl (65-105)
[2024-02-03] MEDS: AMOXICILLIN 500 MG CAPSULE PO (20:23)
[2024-02-03 20:50] LABS: Glucose Point of Care 156 mg/dl (65-105)
[2024-02-04] VITALS (13 sets, daily range): BP systolic 113–167; BP diastolic 51–74; PULSE 60–119; RESP 14–20; TEMP 36.3–37; O2SAT 92–99
[2024-02-04 06:28] LABS: Albumin Level 3.5 g/dL (3.5-5.1); Anion Gap 3 mmol/L (8-16); Blood Urea Nitrogen 35 mg/dL (9-20); Calcium 8.5 mg/dL (8.4-10.2); Carbon Dioxide 35 mmol/L (22-30); Chloride 96 mmol/L (98-107); Estimated CRCL calculation 34 ml/min; Estimated Glomerular Filt Rate 21; Glucose 131 mg/dL (65-110); Phosphorus 3.6 mg/dL (2.5-4.5); Potassium 4.4 mmol/L (3.4-5.0); Sodium 134 mmol/L (137-145)
[2024-02-04 07:51] LABS: Glucose Point of Care 124 mg/dl (65-105)
[2024-02-04] MEDS: PANTOPRAZOLE 40 MG TABLET PO ×2 (09:21→18:02)
[2024-02-04] MEDS: ASCORBIC ACID 500 MG TABLET PO (09:21)
[2024-02-04] MEDS: THERAPEUTIC MULTIVITAMINS/MINERALS TAB (*BKC) 1 TABLET PO (09:21)
[2024-02-04] MEDS: polyethylene glycoL 3350 17 GM POWD.PACK PO (09:21)
[2024-02-04] MEDS: TAMSULOSIN HCL 0.4 MG CAPSULE PO (09:21)
[2024-02-04] MEDS: FUROSEMIDE 80 MG TABLET PO ×2 (09:21→18:02)
[2024-02-04] MEDS: DULoxetine HCL 30 MG CAPSULE.DR PO (09:21)
[2024-02-04] MEDS: AMOXICILLIN 500 MG CAPSULE PO ×2 (09:21→21:42)
[2024-02-04] MEDS: APIXABAN 2.5 MG TABLET PO ×2 (09:22→21:42)
[2024-02-04] MEDS: allopurinoL 100 MG TABLET PO (09:22)
[2024-02-04] MEDS: CHOLECALCIFEROL 1,000 UNITS TABLET 5000 UNITS PO (09:22)
[2024-02-04] MEDS: FERROUS SULFATE 325 MG TABLET DR PO (09:22)
[2024-02-04] MEDS: VITAMIN B CMPLX/VIT C/FOLIC AC 1 CAPSULE 1 CAP PO (09:22)
[2024-02-04] MEDS: MAGNESIUM OXIDE 400 MG TABLET PO ×2 (09:22→18:02)
[2024-02-04] MEDS: TOLNAFTATE 1% POWDER 45 GM BTL 1 APPLIC TOPICAL ×2 (09:24→21:45)
[2024-02-04] MEDS: EUCERIN CREAM 120 GM JAR 1 APPLIC TOPICAL (09:24)
[2024-02-04] MEDS: oxyCODONE/ACETAMINOPHEN (*CRX) 5-325 MG TABLET 1 TABLET PO ×3 (09:28→18:01)
--- NOTE | 2024-02-04 11:18 | PCNWS ---
Weekly nutritional screen. Patient is tolerating current diet with adequate intake. No weight loss reported. No nutritional needs at this time.
[2024-02-04 11:46] LABS: Glucose Point of Care 149 mg/dl (65-105)
--- NOTE | 2024-02-04 11:47 | P.PNNP_ITS ---
Progress Note: A&P Assessment and Plan (1) BILLIE (acute kidney injury): Code(s): N17.9 - Acute kidney failure, unspecified Status: Acute Assessment and Plan: * known history of chronic kidney disease (see #2) * however, how much of renal dysfunction at this time is acute versus progression of CKD... * evaluation to date: * urine electrolytes prerenal * CPK normal * renal ultrasound normal (ascites noted) * Echo with mild pulmonary HTN and elevated right atrial pressure * initiated on LEATHER CRAFTER/dialysis for optimization of volume status. electrolyte control, and clearance * HD tomorrow * continue HD on //F schedule for now * follow trend of repeat labs and UOP for potential renal recovery * outpatient dialysis being arranged (2) Chronic kidney disease: Code(s): N18.9 - Chronic kidney disease, unspecified Status: Chronic Assessment and Plan: * previous testing in April 2023 with a creatinine running around 1.4 - 1.5mg/dl * unfortunately, no other blood work done more recently * presumably due to HTN, DM, and vascular disease along with CHF requiring diuretic therapy (3) Edema: Code(s): R60.9 - Edema, unspecified Status: Acute Assessment and Plan: * significant swelling/edema/anasarca noted * aggressive fluid removal with dialysis * continue diuretic therapy since makes urine * follow volume status closely (4) Acute hypoxic respiratory failure: Code(s): J96.01 - Acute respiratory failure with hypoxia Status: Acute Assessment and Plan: * suspect related to volume oveload * this should hopefully improve with fluid removal * wean oxuygen as tolerated * follow CXR results (5) Hypertension: Code(s): I10 - Essential (primary) hypertension Status: Chronic Assessment and Plan: * reasonable control * suspect ongoing fluid removal with HD and diuresis helping * follow trend of hemodynamics * resume BP medications if needed (6) Paroxysmal atrial fibrillation: Code(s): I48.0 - Paroxysmal atrial fibrillation Status: Acute Assessment and Plan: * rate control strategy * on anticoagulation (7) Type 2 diabetes mellitus: Code(s): E11.9 - Type 2 diabetes mellitus without complications Status: Chronic Assessment and Plan: * follow accu-cheks * on SSI * glycemin control per hospitalist Will continue to follow. Subjective Date/time seen: 03/19/24 11:47 Interval history: Follow-up for presumed acute kidney injury on chronic kidney disease now requiring renal replacement therapy/dialysis. Tolerated dialysis treatment yesterday without any issue or problems; still reports feeling short of breath in association with abdominal bloating at the time of my visit; no other acute complaints voiced; no acute distress noted. Exam Narrative: General: large male in NAD Heart: normal S1 and S2; no rub Lungs: clear anteriorly; decreased at bases Abdomen: soft, nontender, nondistended, positive bowel sounds Extremities: no cyanosis or clubbing; 2+ edema Skin: warm and intact Objective Data Vital Signs Vital Signs: Vital Signs Temp Pulse Resp BP Pulse Ox O2 Del Method O2 Flow Rate 02/04/24 11:30 119 H 02/04/24 08:00 102 H 02/04/24 09:22 95 Nasal Cannula 1.5
--- NOTE | 2024-02-04 11:47 | PM.PNNEP ---
Progress Note: A&P Assessment and Plan (1) BILLIE (acute kidney injury): Code(s): N17.9 - Acute kidney failure, unspecified Status: Acute Assessment and Plan: known history of chronic kidney disease (see #2) however, how much of renal dysfunction at this time is acute versus progression of CKD... evaluation to date: urine electrolytes prerenal CPK normal renal ultrasound normal (ascites noted) Echo with mild pulmonary HTN and elevated right atrial pressure initiated on MARKETING FINANCIAL ANALYST/dialysis for optimization of volume status. electrolyte control, and clearance HD tomorrow continue HD on M//F schedule for now follow trend of repeat labs and UOP for potential renal recovery outpatient dialysis being arranged (2) Chronic kidney disease: Code(s): N18.9 - Chronic kidney disease, unspecified Status: Chronic Assessment and Plan: previous testing in April 2023 with a creatinine running around 1.4 - 1.5mg/dl unfortunately, no other blood work done more recently presumably due to HTN, DM, and vascular disease along with CHF requiring diuretic therapy (3) Edema: Code(s): R60.9 - Edema, unspecified Status: Acute Assessment and Plan: significant swelling/edema/anasarca noted aggressive fluid removal with dialysis continue diuretic therapy since makes urine follow volume status closely (4) Acute hypoxic respiratory failure: Code(s): J96.01 - Acute respiratory failure with hypoxia Status: Acute Assessment and Plan: suspect related to volume oveload this should hopefully improve with fluid removal wean oxuygen as tolerated follow CXR results (5) Hypertension: Code(s): I10 - Essential (primary) hypertension Status: Chronic Assessment and Plan: reasonable control suspect ongoing fluid removal with HD and diuresis helping follow trend of hemodynamics resume BP medications if needed (6) Paroxysmal atrial fibrillation: Code(s): I48.0 - Paroxysmal atrial fibrillation Status: Acute Assessment and Plan: rate control strategy on anticoagulation (7) Type 2 diabetes mellitus: Code(s): E11.9 - Type 2 diabetes mellitus without complications Status: Chronic Assessment and Plan: follow accu-cheks on SSI glycemin control per hospitalist Will continue to follow. Subjective Date/time seen: 02/04/24 11:47 Interval history: Follow-up for presumed acute kidney injury on chronic kidney disease now requiring renal replacement therapy/dialysis. Tolerated dialysis treatment yesterday without any issue or problems; still reports feeling short of breath in association with abdominal bloating at the time of my visit; no other acute complaints voiced; no acute distress noted. Exam Narrative: General: large male in NAD Heart: normal S1 and S2; no rub Lungs: clear anteriorly; decreased at bases Abdomen: soft, nontender, nondistended, positive bowel sounds Extremities: no cyanosis or clubbing; 2+ edema Skin: warm and intact Objective Data Vital Signs Vital Signs: Vital Signs Temp Pulse Resp BP Pulse Ox O2 Del Method O2 Flow Rate 02/04/24 11:30 119 H 02/04/24 08:00 102 H 02/04/24 09:22 95 Nasal Cannula 1.5 02/04/24 09:33 60 14 167/74 H 92 02/04/24 08:30 92 Nasal Cannula 1.5 02/04/24 08:00 98.6 F 102 H 20 154/59 H 92 02/04/24 04:00 103 H 02/04/24 03:39 97.9 F 103 H 18 121/63 99 02/04/24 00:00 98.4 F 101 H 18 113/58 L 97 02/04/24 00:00 97 02/03/24 20:00 96 Nasal Cannula 2 02/03/24 20:00 93 02/03/24 20:00 97.9 F 94 18 137/56 L 95 Intake/Output Intake/Output: Intake & Output 02/01/24 02/02/24 02/03/24 02/04/24 23:59 23:59 23:59 23:59 Intake Total 240 480 470 700 Output Total 8505 1754 5550 700 Balance -3010 -1270 -5080 0 Meds/Results Med
--- NOTE | 2024-02-04 13:05 | PM.IMPN ---
Progress Note: A&P Assessment and Plan (1) CHF exacerbation: Code(s): I50.9 - Heart failure, unspecified <Laura Bedolla, Student - Last Filed: 02/04/24 15:42> Status: Acute <Laura Bedolla, Student - Last Filed: 02/04/24 15:42> Assessment and Plan: The patient presents with shortness of breath and diffuse edema. CXR showing airspace opacities in all right lung zones and LLL with small right pleural effusion. BNP 4980 EKG showing supraventricular bradycardia and borderline ST-T wave changes. Not able to do CTA but unlikely he has PE since he is on Eliquis. LE venous doppler negative for DVT Echo showing EF 60-65% with LV enlargement, diastolic dysfunction and mild pulmonary HTN Patient with acute diastolic CHF related to fluid overload from renal failure. Less likely related to Rt heart failure. He was started on Lasix IV but stopped due to climbing Cr. UOP remained poor Decision to start HD and tunnelled catheter placed. Was on 4L but able to wean down to 2L --> 1.5L (02/03) Repeat CXR shows improvement so doubt PNA BCx NGTD. UCx enterococcus Continue Dialysis to improve fluid status. Continue PO Lasix. Wean o2 as tolerated Consider ApneaLink to see if he needs O2 at night once he is closer to dry weight <Laura Bedolla, Student - Last Filed: 02/04/24 15:42> (2) Electrolyte abnormality: Code(s): E87.8 - Other disorders of electrolyte and fluid balance, not elsewhere classified <Laura Bedolla, Student - Last Filed: 02/04/24 15:42> Status: Acute <Laura Bedolla, Student - Last Filed: 02/04/24 15:42> Assessment and Plan: Sodium was slightly low but stable and is likely related to excess fluid. Na stable Potassium was elevated (6.1) treated with Lokelma but now stopped. Potassium normal now. Phos level better Calcium slightly low but iPTH elevated Monitor and replace electrolytes as needed. <Laura Bedolla, Student - Last Filed: 02/04/24 15:42> (3) ESRD (end stage renal disease) on dialysis: Code(s): N18.6 - End stage renal disease; Z99.2 - Dependence on renal dialysis <Petros Parada - Last Filed: 02/04/24 15:42> Status: Acute <Laura Bedolla Student - Last Filed: 02/04/24 15:42> Assessment and Plan: Patient has a hx of CKD and appears to be close to dialysis by his report. Baseline numbers unknown. Old records requested but none have arrived Cr 3.5 and BUN 98 on admission Renal US showing normal appearing kidneys and ascites. With diuresis, BUN 108 and Cr 4.8 Nephrology consulted and workup was ordered. Liam 24, FENa 0.4% c/w pre-renal Abd US shows small ascites and no evidence of cirrhosis. Discussed with nephrology and decision to start HD was made. Patient was agreeable General Surgery consulted and a tunnelled catheter placed 3 HD 01/29, 01/30, 01/31 and 02/02. Use HD to control fluid status. Continue lasix po Monitor UOP, renal function and electrolytes <Laura Bedolla Student - Last Filed: 02/04/24 15:42> Patient has a hx of CKD and appears to be close to dialysis by his report. Baseline numbers unknown. Old records requested but none have arrived Cr 3.5 and BUN 98 on admission Renal US showing normal appearing kidneys and ascites. With diuresis, BUN 108 and Cr 4.8 Nephrology consulted and workup was ordered. Liam 24, FENa 0.4% c/w pre-renal Abd US shows small ascites and no evidence of cirrhosis. Discussed with nephrology and decision to start HD was made. Patient was agreeable General Surgery consulted and a tunnelled catheter placed 01/29 HD 01/29, 01/30, 01/31 and 02/02. Use HD to control fluid status. Continue lasix po Monitor UOP, renal function and electrolytes <Vignesh Sarmiento MD - Last Filed: 02/04/24 18:20> (4) Hypertension: Code(s): I10 - Essential (primary) hypertension <Laura Bedolla Student - Last Filed: 02/04/24 15:42> Status:
[2024-02-04 16:58] LABS: Glucose Point of Care 174 mg/dl (65-105)
[2024-02-04 20:50] LABS: Glucose Point of Care 194 mg/dl (65-105)
[2024-02-05] VITALS (28 sets, daily range): BP systolic 99–134; BP diastolic 49–67; PULSE 95–105; RESP 12–17; TEMP 36.6–37.1; O2SAT 90–93
[2024-02-05 07:55] LABS: Glucose Point of Care 175 mg/dl (65-105)
[2024-02-05 08:17] LABS: Basophils Absolute Auto 0.1 K/mm3 (0.0-0.1); Basophils Percent Auto 0.8 % (0.2-1.2); Eosinophils Absolute Auto 0.3 K/mm3 (0-0.3); Eosinophils Percent Auto 4.6 % (0-4.4); Hematocrit 36.7 % (42.0-52.0); Hemoglobin 10.7 g/dL (14.0-18.0); Immature Granulocyte Absolute 0.06 K/mm3 (0.00-0.031); Lymphocytes Absolute Auto 0.48 K/mm3 (0.9-3.2); Lymphocytes Percent Auto 7.9 % (18.3-44.2); Mean Corpuscular HGB Conc 29.2 g/dl (32-36); Mean Corpuscular Hemoglobin 27.8 pg (26-34); Mean Corpuscular Volume 95.3 fl (80-100); Mean Platelet Volume 9.9 fl (7.4-10.4); Monocytes Percent Auto 16.3 % (2.6-8.5); Neutrophils Absolute Auto 4.2 K/mm3 (1.3-6.7); Neutrophils Percent Auto 69.4 % (45.5-73.1); Platelet Count Result 151 k/mm3 (150-375); Red Blood Count 3.85 M/mm3 (4.6-6.20); Red Cell Distribution Width 16.2 % (11.5-14.5); White Blood Count 6.1 K/mm3 (4.5-10.0)
[2024-02-05 08:20] LABS: Alanine Aminotransferase 11 U/L (6-50); Albumin Level 3.7 g/dL (3.5-5.1); Alkaline Phosphatase 147 U/L (38-126); Anion Gap 4 mmol/L (8-16); Aspartate Amino Transferase 24 U/L (17-59); Bilirubin,Total 0.9 mg/dL (0.2-1.3); Blood Urea Nitrogen 42 mg/dL (9-20); Calcium 8.8 mg/dL (8.4-10.2); Carbon Dioxide 35 mmol/L (22-30); Chloride 95 mmol/L (98-107); Estimated CRCL calculation 29 ml/min; Estimated Glomerular Filt Rate 17; Glucose 185 mg/dL (65-110); Potassium 4.5 mmol/L (3.4-5.0); Sodium 134 mmol/L (137-145)
[2024-02-05] MEDS: EPOETIN ALFA-EPBX 10,000 UNITS/ML VIAL 10000 UNITS IV PUSH (11:44)
--- NOTE | 2024-02-05 11:55 | PM.PNNEP ---
Progress Note: A&P Assessment and Plan (1) BILLIE (acute kidney injury): Code(s): N17.9 - Acute kidney failure, unspecified Status: Acute Assessment and Plan: known history of chronic kidney disease (see #2) however, how much of renal dysfunction at this time is acute versus progression of CKD... evaluation to date: urine electrolytes prerenal CPK normal renal ultrasound normal (ascites noted) Echo with mild pulmonary HTN and elevated right atrial pressure initiated on DRIP PUMPER/dialysis for optimization of volume status. electrolyte control, and clearance HD tomorrow continue HD on M/W/F schedule for now follow trend of repeat labs and UOP for potential renal recovery outpatient dialysis being arranged (2) Chronic kidney disease: Code(s): N18.9 - Chronic kidney disease, unspecified Status: Chronic Assessment and Plan: previous testing in April 2023 with a creatinine running around 1.4 - 1.5mg/dl unfortunately, no other blood work done more recently presumably due to HTN, DM, and vascular disease along with CHF requiring diuretic therapy (3) Edema: Code(s): R60.9 - Edema, unspecified Status: Acute Assessment and Plan: significant swelling/edema/anasarca noted aggressive fluid removal with dialysis continue diuretic therapy since makes urine follow volume status closely (4) Acute hypoxic respiratory failure: Code(s): J96.01 - Acute respiratory failure with hypoxia Status: Acute Assessment and Plan: suspect related to volume oveload this should hopefully improve with fluid removal wean oxuygen as tolerated follow CXR results (5) Hypertension: Code(s): I10 - Essential (primary) hypertension Status: Chronic Assessment and Plan: reasonable control suspect ongoing fluid removal with HD and diuresis helping follow trend of hemodynamics resume BP medications if needed (6) Paroxysmal atrial fibrillation: Code(s): I48.0 - Paroxysmal atrial fibrillation Status: Acute Assessment and Plan: rate control strategy on anticoagulation (7) Type 2 diabetes mellitus: Code(s): E11.9 - Type 2 diabetes mellitus without complications Status: Chronic Assessment and Plan: follow accu-cheks on SSI glycemin control per hospitalist Will continue to follow. Subjective Date/time seen: 02/05/24 11:55 Interval history: Follow-up for presumed acute kidney injury on chronic kidney disease now requiring renal replacement therapy/dialysis. Tolerating dialysis treatment at the time of my visit (seen on HD at 11:45AM); breathing and abdominal distension still remains an issue but are better in comparison to admission; fluctuating urine output with diuretic therapy; no other issues/events overnight or earlier this AM. Exam Narrative: General: large male in NAD Heart: normal S1 and S2; no rub Lungs: clear anteriorly; decreased at bases Abdomen: soft, nontender, nondistended, positive bowel sounds Extremities: no cyanosis or clubbing; 2+ edema Skin: no rash Objective Data Vital Signs Vital Signs: Vital Signs Temp Pulse Resp BP Pulse Ox O2 Del Method O2 Flow Rate 02/05/24 11:45 100 114/58 L 02/05/24 11:15 96 118/57 L 02/05/24 11:00 96 111/59 L 02/05/24 10:45 98 122/58 L 02/05/24 10:30 98 104/58 L 02/05/24 10:15 98 118/59 L 02/05/24 12:08 98.8 F 100 16 121/67 02/05/24 11:30 100 99/49 L 02/05/24 10:00 102 H 110/51 L 02/05/24 09:45 102 H 118/60 02/05/24 09:30 102 H 121/59 L 02/05/24 09:15 100 118/59 L 02/05/24 09:00 99 112/57 L 02/05/24 08:45 98 117/56 L 02/05/24 08:27 1.5 02/05/24 08:27 98 122/66 02/05/24 08:11 97.9 F 102 H 12 129/67 02/05/24 04:00 96 02/05/24 04:00 98.1 F 96 17 129/50 L 90 03
--- NOTE | 2024-02-05 11:55 | P.PNNP_ITS ---
Progress Note: A&P Assessment and Plan (1) BILLIE (acute kidney injury): Code(s): N17.9 - Acute kidney failure, unspecified Status: Acute Assessment and Plan: * known history of chronic kidney disease (see #2) * however, how much of renal dysfunction at this time is acute versus progression of CKD... * evaluation to date: * urine electrolytes prerenal * CPK normal * renal ultrasound normal (ascites noted) * Echo with mild pulmonary HTN and elevated right atrial pressure * initiated on [employer]/dialysis for optimization of volume status. electrolyte control, and clearance * HD tomorrow * continue HD on //F schedule for now * follow trend of repeat labs and UOP for potential renal recovery * outpatient dialysis being arranged (2) Chronic kidney disease: Code(s): N18.9 - Chronic kidney disease, unspecified Status: Chronic Assessment and Plan: * previous testing in April 2023 with a creatinine running around 1.4 - 1.5mg/dl * unfortunately, no other blood work done more recently * presumably due to HTN, DM, and vascular disease along with CHF requiring diuretic therapy (3) Edema: Code(s): R60.9 - Edema, unspecified Status: Acute Assessment and Plan: * significant swelling/edema/anasarca noted * aggressive fluid removal with dialysis * continue diuretic therapy since makes urine * follow volume status closely (4) Acute hypoxic respiratory failure: Code(s): J96.01 - Acute respiratory failure with hypoxia Status: Acute Assessment and Plan: * suspect related to volume oveload * this should hopefully improve with fluid removal * wean oxuygen as tolerated * follow CXR results (5) Hypertension: Code(s): I10 - Essential (primary) hypertension Status: Chronic Assessment and Plan: * reasonable control * suspect ongoing fluid removal with HD and diuresis helping * follow trend of hemodynamics * resume BP medications if needed (6) Paroxysmal atrial fibrillation: Code(s): I48.0 - Paroxysmal atrial fibrillation Status: Acute Assessment and Plan: * rate control strategy * on anticoagulation (7) Type 2 diabetes mellitus: Code(s): E11.9 - Type 2 diabetes mellitus without complications Status: Chronic Assessment and Plan: * follow accu-cheks * on SSI * glycemin control per hospitalist Will continue to follow. Subjective Date/time seen: 03/20/24 11:55 Interval history: Follow-up for presumed acute kidney injury on chronic kidney disease now requiring renal replacement therapy/dialysis. Tolerating dialysis treatment at the time of my visit (seen on HD at 11:45AM); breathing and abdominal distension still remains an issue but are better in comparison to admission; fluctuating urine output with diuretic therapy; no other issues/events overnight or earlier this AM. Exam Narrative: General: large male in NAD Heart: normal S1 and S2; no rub Lungs: clear anteriorly; decreased at bases Abdomen: soft, nontender, nondistended, positive bowel sounds Extremities: no cyanosis or clubbing; 2+ edema Skin: no rash Objective Data Vital Signs Vital Signs: Vital Signs Temp Pulse Resp BP Pulse Ox O2 Del Method O2 Flow Rate 02/05/24 11:45 100 114/58 L 02/05/24 11:15 96 118/57 L 03
[2024-02-05] MEDS: HEPARIN SODIUM 1,000 UNITS/ML VIAL 6000 UNITS IV PUSH (12:24)
[2024-02-05 12:39] LABS: Glucose Point of Care 129 mg/dl (65-105)
[2024-02-05] MEDS: FERROUS SULFATE 325 MG TABLET DR PO (13:20)
[2024-02-05] MEDS: DULoxetine HCL 30 MG CAPSULE.DR PO (13:20)
[2024-02-05] MEDS: THERAPEUTIC MULTIVITAMINS/MINERALS TAB (*BKC) 1 TABLET PO (13:20)
[2024-02-05] MEDS: ASCORBIC ACID 500 MG TABLET PO (13:21)
[2024-02-05] MEDS: allopurinoL 100 MG TABLET PO (13:21)
[2024-02-05] MEDS: TAMSULOSIN HCL 0.4 MG CAPSULE PO (13:21)
[2024-02-05] MEDS: CHOLECALCIFEROL 1,000 UNITS TABLET 5000 UNITS PO (13:21)
[2024-02-05] MEDS: MAGNESIUM OXIDE 400 MG TABLET PO ×2 (13:31→17:40)
[2024-02-05] MEDS: AMOXICILLIN 500 MG CAPSULE PO ×2 (13:31→21:59)
[2024-02-05] MEDS: PANTOPRAZOLE 40 MG TABLET PO ×2 (13:31→17:40)
[2024-02-05] MEDS: APIXABAN 2.5 MG TABLET PO ×2 (13:31→21:59)
[2024-02-05] MEDS: polyethylene glycoL 3350 17 GM POWD.PACK PO (13:32)
[2024-02-05] MEDS: EUCERIN CREAM 120 GM JAR 1 APPLIC TOPICAL (13:32)
[2024-02-05] MEDS: FUROSEMIDE 80 MG TABLET PO ×2 (13:32→17:40)
[2024-02-05] MEDS: TOLNAFTATE 1% POWDER 45 GM BTL 1 APPLIC TOPICAL ×2 (13:32→22:01)
--- NOTE | 2024-02-05 14:12 | PCOTNOTE ---
Attempted to see Patient at this time. Patient stated he is exhausted from having dialysis this A.M. and they kept him longer than expected. Patient stated he is so nauseous, not today.
--- NOTE | 2024-02-05 14:19 | PC.NURSE ---
Morning medications administered at 1330 after patient returned from dialysis.
--- NOTE | 2024-02-05 15:09 | PM.IMPN ---
Progress Note: A&P Assessment and Plan (1) CHF exacerbation: Code(s): I50.9 - Heart failure, unspecified Status: Acute Assessment and Plan: The patient presents with shortness of breath and diffuse edema. CXR showing airspace opacities in all right lung zones and LLL with small right pleural effusion. BNP 4980 Continue Dialysis to improve fluid status. Continue PO Lasix. Wean o2 as tolerated Consider ApneaLink to see if he needs O2 at night once he is closer to dry weight (2) Electrolyte abnormality: Code(s): E87.8 - Other disorders of electrolyte and fluid balance, not elsewhere classified Status: Acute Assessment and Plan: Sodium was slightly low but stable and is likely related to excess fluid. Na stable 134 Monitor and replace electrolytes as needed. (3) ESRD (end stage renal disease) on dialysis: Code(s): N18.6 - End stage renal disease; Z99.2 - Dependence on renal dialysis Status: Acute Assessment and Plan: Patient has a hx of CKD and appears to be close to dialysis by his report. Baseline numbers unknown. Old records requested but none have arrived Cr 3.5 and BUN 98 on admission Renal US showing normal appearing kidneys and ascites. With diuresis, BUN 108 and Cr 4.8 Nephrology consulted and workup was ordered. Liam 24, FENa 0.4% c/w pre-renal Abd US shows small ascites and no evidence of cirrhosis. Discussed with nephrology and decision to start HD was made. Patient was agreeable General Surgery consulted and a tunnelled catheter placed 01/29 Continue lasix po nephrology rounding (4) Hypertension: Code(s): I10 - Essential (primary) hypertension Status: Acute Assessment and Plan: Lasix oral, Norvasc, Hydralazine and Toprol XL (5) UTI (urinary tract infection): Code(s): N39.0 - Urinary tract infection, site not specified Status: Acute Assessment and Plan: UA is consistent with UTI. UCx collected. Rocephin started but changed to Vanco when UCx grew Enterococcus. Sensitivities noted and changed to Amox. Continue Amoxicillin (6) Type 2 diabetes mellitus: Code(s): E11.9 - Type 2 diabetes mellitus without complications Status: Acute Assessment and Plan: A1c 8.2. T Glucose well controlled. Continue AccuCheks covering with sliding scale. Hypoglycemia protocol available as needed. Off Lantus now. Follow (7) Coronary artery disease: Code(s): I25.10 - Atherosclerotic heart disease of [place] coronary artery without angina pectoris Status: Acute Assessment and Plan: Hx of CAD s/p stent placement Not on ASA or statin. He is on betablocker but was having supraventricular bradycardia and HoTN. Metoprolol held. Monitor on tele (8) Paroxysmal atrial fibrillation: Code(s): I48.0 - Paroxysmal atrial fibrillation Status: Acute Assessment and Plan: As above. Rate controlled Eliquis for stroke prophylaxis Continue Eliquis (9) Hypoxia: Code(s): R09.02 - Hypoxemia Status: Acute Assessment and Plan: Wean O2 as appropriate Plan DVT prophylaxis - Eliquis Code status - full Disp - PT/OT Subjective Date/time seen: 02/05/24 15:09 Interval history: 63yo male with pAFib, CKD with hx of temporary dialysis, CAD, TRISTEN (not on CPAP), CHF, PVD, HTN and DVT here for SOB. sp dialysis today Pt on 2 liters of oxygen producing little urine Review of Systems Review of Systems: SOB Exam Narrative: General- chronically ill Neck - Tunnelled HD catheter right upper chest tunnelled to right IJ Chest - decreased BS in the right base CV - irregularly irregular. Tele showing AFib with controlled HR Abd - Soft, less firm, obese, NT - Hendrix secured draining clear yellow urine. Scrotal edema noted and better Ext - Left LE BKA with pink erythema at stump. 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 Edema
[2024-02-05 16:51] LABS: Glucose Point of Care 150 mg/dl (65-105)
[2024-02-05 22:26] LABS: Glucose Point of Care 198 mg/dl (65-105)
[2024-02-06] VITALS (13 sets, daily range): BP systolic 110–147; BP diastolic 51–74; PULSE 92–115; RESP 16–20; TEMP 36.2–36.8; O2SAT 92–99
[2024-02-06 06:03] LABS: Anion Gap 5 mmol/L (8-16); Blood Urea Nitrogen 32 mg/dL (9-20); Calcium 8.7 mg/dL (8.4-10.2); Carbon Dioxide 32 mmol/L (22-30); Chloride 98 mmol/L (98-107); Estimated CRCL calculation 39 ml/min; Estimated Glomerular Filt Rate 24; Glucose 189 mg/dL (65-110); Potassium 4.4 mmol/L (3.4-5.0); Sodium 135 mmol/L (137-145)
[2024-02-06 07:58] LABS: Glucose Point of Care 173 mg/dl (65-105)
[2024-02-06] MEDS: DULoxetine HCL 30 MG CAPSULE.DR PO (08:41)
[2024-02-06] MEDS: polyethylene glycoL 3350 17 GM POWD.PACK PO (08:41)
[2024-02-06] MEDS: CHOLECALCIFEROL 1,000 UNITS TABLET 5000 UNITS PO (08:41)
[2024-02-06] MEDS: APIXABAN 2.5 MG TABLET PO ×2 (08:41→20:19)
[2024-02-06] MEDS: TAMSULOSIN HCL 0.4 MG CAPSULE PO (08:42)
[2024-02-06] MEDS: THERAPEUTIC MULTIVITAMINS/MINERALS TAB (*BKC) 1 TABLET PO (08:42)
[2024-02-06] MEDS: PANTOPRAZOLE 40 MG TABLET PO ×2 (08:42→16:20)
[2024-02-06] MEDS: allopurinoL 100 MG TABLET PO (08:43)
[2024-02-06] MEDS: AMOXICILLIN 500 MG CAPSULE PO ×2 (08:43→20:19)
[2024-02-06] MEDS: FUROSEMIDE 80 MG TABLET PO ×2 (08:43→16:20)
[2024-02-06] MEDS: ASCORBIC ACID 500 MG TABLET PO (08:43)
[2024-02-06] MEDS: MAGNESIUM OXIDE 400 MG TABLET PO ×2 (08:43→16:21)
[2024-02-06] MEDS: FERROUS SULFATE 325 MG TABLET DR PO (08:44)
[2024-02-06] MEDS: EUCERIN CREAM 120 GM JAR 1 APPLIC TOPICAL (08:45)
[2024-02-06] MEDS: TOLNAFTATE 1% POWDER 45 GM BTL 1 APPLIC TOPICAL ×2 (08:45→20:18)
[2024-02-06] MEDS: VITAMIN B CMPLX/VIT C/FOLIC AC 1 CAPSULE 1 CAP PO (08:48)
--- NOTE | 2024-02-06 09:54 | PM.IMPN ---
Progress Note: A&P Assessment and Plan (1) CHF exacerbation: Code(s): I50.9 - Heart failure, unspecified Status: Acute Assessment and Plan: The patient presents with shortness of breath and diffuse edema. CXR showing airspace opacities in all right lung zones and LLL with small right pleural effusion. BNP 4980 Continue Dialysis to improve fluid status. Continue PO Lasix. Wean o2 as tolerated (2) Electrolyte abnormality: Code(s): E87.8 - Other disorders of electrolyte and fluid balance, not elsewhere classified Status: Acute Assessment and Plan: Sodium was slightly low but stable and is likely related to excess fluid. Na stable 135 Monitor and replace electrolytes as needed. (3) ESRD (end stage renal disease) on dialysis: Code(s): N18.6 - End stage renal disease; Z99.2 - Dependence on renal dialysis Status: Acute Assessment and Plan: Patient has a hx of CKD and appears to be close to dialysis by his report. Baseline numbers unknown. Old records requested but none have arrived Cr 3.5 and BUN 98 on admission Renal US showing normal appearing kidneys and ascites. With diuresis, BUN 108 and Cr 4.8 Nephrology consulted and workup was ordered. Liam 24, FENa 0.4% c/w pre-renal Abd US shows small ascites and no evidence of cirrhosis. Discussed with nephrology and decision to start HD was made. Patient was agreeable General Surgery consulted and a tunnelled catheter placed 01/29 Continue lasix po nephrology rounding (4) Hypertension: Code(s): I10 - Essential (primary) hypertension Status: Acute Assessment and Plan: Lasix oral, Norvasc, Hydralazine and Toprol XL (5) UTI (urinary tract infection): Code(s): N39.0 - Urinary tract infection, site not specified Status: Acute Assessment and Plan: UA is consistent with UTI. UCx collected. Rocephin started but changed to Vanco when UCx grew Enterococcus. Sensitivities noted and changed to Amox. Continue Amoxicillin (6) Type 2 diabetes mellitus: Code(s): E11.9 - Type 2 diabetes mellitus without complications Status: Acute Assessment and Plan: A1c 8.2. T Glucose well controlled. Continue AccuCheks covering with sliding scale. Hypoglycemia protocol available as needed. Off Lantus now. Follow (7) Coronary artery disease: Code(s): I25.10 - Atherosclerotic heart disease of [place] coronary artery without angina pectoris Status: Acute Assessment and Plan: Hx of CAD s/p stent placement Not on ASA or statin. He is on betablocker but was having supraventricular bradycardia and HoTN. Metoprolol held. Monitor on tele (8) Paroxysmal atrial fibrillation: Code(s): I48.0 - Paroxysmal atrial fibrillation Status: Acute Assessment and Plan: As above. Rate controlled Eliquis for stroke prophylaxis Continue Eliquis (9) Hypoxia: Code(s): R09.02 - Hypoxemia Status: Acute Assessment and Plan: Wean O2 as appropriate Plan DVT prophylaxis - Eliquis Code status - full Disp - PT/OT Subjective Date/time seen: 02/06/24 09:54 Interval history: 63yo male with pAFib, CKD with hx of temporary dialysis, CAD, TRISTEN (not on CPAP), CHF, PVD, HTN and DVT here for SOB. sp dialysis yesterday Pt on 2 liters of oxygen producing little urine continue to diuresis continue to wean off oxygen Pt encouraged to ambulate in the halls Possible DC perico after dialysis Nephrology rounding Review of Systems Review of Systems: SOB mild Exam Narrative: General- chronically ill Neck - Tunnelled HD catheter right upper chest tunnelled to right IJ Chest - decreased BS in the right base CV - irregularly irregular. Tele showing AFib with controlled HR Abd - Soft, less firm, obese, NT - Hendrix secured draining clear yellow urine. Scrotal edema noted and better Ext - Left L
[2024-02-06 11:41] LABS: Glucose Point of Care 178 mg/dl (65-105)
--- NOTE | 2024-02-06 13:35 | PM.PNNEP ---
Progress Note: A&P Assessment and Plan (1) BILLIE (acute kidney injury): Code(s): N17.9 - Acute kidney failure, unspecified Status: Acute Assessment and Plan: known history of chronic kidney disease (see #2) however, how much of renal dysfunction at this time is acute versus progression of CKD... evaluation to date: urine electrolytes prerenal CPK normal renal ultrasound normal (ascites noted) Echo with mild pulmonary HTN and elevated right atrial pressure initiated on [employer]/dialysis for optimization of volume status. electrolyte control, and clearance HD tomorrow continue HD on M//F schedule for now follow trend of repeat labs and UOP for potential renal recovery outpatient dialysis being arranged (2) Chronic kidney disease: Code(s): N18.9 - Chronic kidney disease, unspecified Status: Chronic Assessment and Plan: previous testing in April 2023 with a creatinine running around 1.4 - 1.5mg/dl unfortunately, no other blood work done more recently presumably due to HTN, DM, and vascular disease along with CHF requiring diuretic therapy (3) Edema: Code(s): R60.9 - Edema, unspecified Status: Acute Assessment and Plan: significant swelling/edema/anasarca noted aggressive fluid removal with dialysis continue diuretic therapy since makes urine follow volume status closely (4) Acute hypoxic respiratory failure: Code(s): J96.01 - Acute respiratory failure with hypoxia Status: Acute Assessment and Plan: suspect related to volume oveload this should hopefully improve with fluid removal wean oxuygen as tolerated follow CXR results (5) Hypertension: Code(s): I10 - Essential (primary) hypertension Status: Chronic Assessment and Plan: reasonable control suspect ongoing fluid removal with HD and diuresis helping follow trend of hemodynamics resume BP medications if needed (6) Paroxysmal atrial fibrillation: Code(s): I48.0 - Paroxysmal atrial fibrillation Status: Acute Assessment and Plan: rate control strategy on anticoagulation (7) Type 2 diabetes mellitus: Code(s): E11.9 - Type 2 diabetes mellitus without complications Status: Chronic Assessment and Plan: follow accu-cheks on SSI glycemin control per hospitalist Will continue to follow. Subjective Date/time seen: 02/06/24 13:35 Interval history: Follow-up for presumed acute kidney injury on chronic kidney disease now requiring renal replacement therapy/dialysis. Tolerated dialysis yesterday without any issues or problems; still with shortness of breath and requiring supplemental oxygen despite significant fluid removal/ultrafiltration in the last several days; otherwise, no acute distress noted; no other acute complaints to report. Exam Narrative: General: large male in NAD Heart: normal S1 and S2; no rub Lungs: clear anteriorly; decreased at bases Abdomen: soft, nontender, nondistended, positive bowel sounds Extremities: no cyanosis or clubbing; 2+ edema Skin: no nodules Objective Data Vital Signs Vital Signs: Vital Signs Temp Pulse Resp BP Pulse Ox O2 Del Method O2 Flow Rate 02/06/24 13:00 98.2 F 98 16 125/54 L 95 02/06/24 12:04 115 H 02/06/24 08:45 16 92 Nasal Cannula 1.5 02/06/24 08:59 92 Nasal Cannula 1.5 02/06/24 08:00 101 H 02/06/24 07:50 97.9 F 98 16 126/51 L 94 02/06/24 06:00 97.7 F 98 16 112/58 L 99 02/06/24 04:00 97 02/06/24 00:00 99 02/05/24 20:00 99 02/06/24 00:00 98.1 F 99 16 124/55 L 93 02/05/24 20:00 92 Nasal Cannula 1.5 02/05/24 21:33 98.0 F 100 16 134/60 92 02/05/24 18:21 98.4 F 103 H 16 134/62 93 Intake/Output Intake/Output: Intake & Output 02/03/24 02/04/24 02/05/24 02/06/24 23:59 23:59 23:59 23:59 Intake Total 470 980
--- NOTE | 2024-02-06 13:35 | P.PNNP_ITS ---
Progress Note: A&P Assessment and Plan (1) BILLIE (acute kidney injury): Code(s): N17.9 - Acute kidney failure, unspecified Status: Acute Assessment and Plan: * known history of chronic kidney disease (see #2) * however, how much of renal dysfunction at this time is acute versus progression of CKD... * evaluation to date: * urine electrolytes prerenal * CPK normal * renal ultrasound normal (ascites noted) * Echo with mild pulmonary HTN and elevated right atrial pressure * initiated on [employer]/dialysis for optimization of volume status. electrolyte control, and clearance * HD tomorrow * continue HD on //F schedule for now * follow trend of repeat labs and UOP for potential renal recovery * outpatient dialysis being arranged (2) Chronic kidney disease: Code(s): N18.9 - Chronic kidney disease, unspecified Status: Chronic Assessment and Plan: * previous testing in April 2023 with a creatinine running around 1.4 - 1.5mg/dl * unfortunately, no other blood work done more recently * presumably due to HTN, DM, and vascular disease along with CHF requiring diuretic therapy (3) Edema: Code(s): R60.9 - Edema, unspecified Status: Acute Assessment and Plan: * significant swelling/edema/anasarca noted * aggressive fluid removal with dialysis * continue diuretic therapy since makes urine * follow volume status closely (4) Acute hypoxic respiratory failure: Code(s): J96.01 - Acute respiratory failure with hypoxia Status: Acute Assessment and Plan: * suspect related to volume oveload * this should hopefully improve with fluid removal * wean oxuygen as tolerated * follow CXR results (5) Hypertension: Code(s): I10 - Essential (primary) hypertension Status: Chronic Assessment and Plan: * reasonable control * suspect ongoing fluid removal with HD and diuresis helping * follow trend of hemodynamics * resume BP medications if needed (6) Paroxysmal atrial fibrillation: Code(s): I48.0 - Paroxysmal atrial fibrillation Status: Acute Assessment and Plan: * rate control strategy * on anticoagulation (7) Type 2 diabetes mellitus: Code(s): E11.9 - Type 2 diabetes mellitus without complications Status: Chronic Assessment and Plan: * follow accu-cheks * on SSI * glycemin control per hospitalist Will continue to follow. Subjective Date/time seen: 03/21/24 13:35 Interval history: Follow-up for presumed acute kidney injury on chronic kidney disease now requiring renal replacement therapy/dialysis. Tolerated dialysis yesterday without any issues or problems; still with shortness of breath and requiring supplemental oxygen despite significant fluid removal/ultrafiltration in the last several days; otherwise, no acute distress noted; no other acute complaints to report. Exam Narrative: General: large male in NAD Heart: normal S1 and S2; no rub Lungs: clear anteriorly; decreased at bases Abdomen: soft, nontender, nondistended, positive bowel sounds Extremities: no cyanosis or clubbing; 2+ edema Skin: no nodules Objective Data Vital Signs Vital Signs: Vital Signs Temp Pulse Resp BP Pulse Ox O2 Del Method O2 Flow Rate 02/06/24 13:00 98.2 F 98 16 125/54 L 95 02/06/24 12:04 115 H
[2024-02-06 16:35] LABS: Glucose Point of Care 213 mg/dl (65-105)
[2024-02-06] MEDS: INSULIN ASPART (*BKC) 100 UNITS/ML SUB-Q ×2 (16:45→20:21)
[2024-02-06 21:06] LABS: Glucose Point of Care 205 mg/dl (65-105)
[2024-02-07] VITALS (27 sets, daily range): BP systolic 99–145; BP diastolic 50–84; PULSE 80–102; RESP 16–20; TEMP 35.3–37.1; O2SAT 90–96
[2024-02-07 06:24] LABS: Anion Gap 3 mmol/L (8-16); Blood Urea Nitrogen 41 mg/dL (9-20); Calcium 8.8 mg/dL (8.4-10.2); Carbon Dioxide 33 mmol/L (22-30); Chloride 97 mmol/L (98-107); Estimated CRCL calculation 32 ml/min; Estimated Glomerular Filt Rate 20; Glucose 189 mg/dL (65-110); Potassium 4.3 mmol/L (3.4-5.0); Sodium 133 mmol/L (137-145)
[2024-02-07 08:12] LABS: Glucose Point of Care 196 mg/dl (65-105)
--- NOTE | 2024-02-07 09:45 | P.PNNP_ITS ---
Progress Note: A&P Assessment and Plan (1) BILLIE (acute kidney injury): Code(s): N17.9 - Acute kidney failure, unspecified Status: Acute Assessment and Plan: * known history of chronic kidney disease (see #2) * however, how much of renal dysfunction at this time is acute versus progression of CKD... * evaluation to date: * urine electrolytes prerenal * CPK normal * renal ultrasound normal (ascites noted) * Echo with mild pulmonary HTN and elevated right atrial pressure * initiated on EQUITIES TRADER/dialysis for optimization of volume status. electrolyte control, and clearance * HD today * continue HD on // schedule for now * follow trend of repeat labs and UOP for potential renal recovery * outpatient dialysis being arranged (2) Chronic kidney disease: Code(s): N18.9 - Chronic kidney disease, unspecified Status: Chronic Assessment and Plan: * previous testing in April 2023 with a creatinine running around 1.4 - 1.5mg/dl * unfortunately, no other blood work done more recently * presumably due to HTN, DM, and vascular disease along with CHF requiring diuretic therapy (3) Edema: Code(s): R60.9 - Edema, unspecified Status: Acute Assessment and Plan: * significant swelling/edema/anasarca noted * aggressive fluid removal with dialysis * continue diuretic therapy since makes urine * follow volume status closely (4) Acute hypoxic respiratory failure: Code(s): J96.01 - Acute respiratory failure with hypoxia Status: Acute Assessment and Plan: * suspect related to volume oveload * this should hopefully improve with fluid removal * wean oxygen as tolerated * follow CXR results * consider DUF (dry ultrafiltration) tomorrow for further fluid removal... (5) Hypertension: Code(s): I10 - Essential (primary) hypertension Status: Chronic Assessment and Plan: * reasonable control * suspect ongoing fluid removal with HD and diuresis helping * follow trend of hemodynamics * resume BP medications if needed (6) Paroxysmal atrial fibrillation: Code(s): I48.0 - Paroxysmal atrial fibrillation Status: Acute Assessment and Plan: * rate control strategy * on anticoagulation (7) Type 2 diabetes mellitus: Code(s): E11.9 - Type 2 diabetes mellitus without complications Status: Chronic Assessment and Plan: * follow accu-cheks * on SSI * glycemic control per hospitalists Will continue to follow. Subjective Date/time seen: 02/07/24 09:45 Interval history: Follow-up for presumed acute kidney injury on chronic kidney disease now requiring renal replacement therapy/dialysis. Tolerating dialysis treatment at the time of my visit (seen on HD at 9:35AM); feels a bit tired today but states swelling/edema as well as shortness of breath seems to be doing a bit better but still requiring supplemental oxygen; no other issues/events overnight or earlier this morning. Exam Narrative: General: large male in NAD Heart: normal S1 and S2; no rub Lungs: clear anteriorly; decreased at bases Abdomen: soft, nontender, nondistended, positive bowel sounds Extremities: no cyanosis or clubbing; 1 - 2+ edema Skin: warm and dry Objective Data Vital Signs Vital Signs: Vital Signs Temp Pulse Resp BP Pulse Ox O2 Del Method O2 Flow Rate 03/2
--- NOTE | 2024-02-07 09:45 | PM.PNNEP ---
Progress Note: A&P Assessment and Plan (1) BILLIE (acute kidney injury): Code(s): N17.9 - Acute kidney failure, unspecified Status: Acute Assessment and Plan: known history of chronic kidney disease (see #2) however, how much of renal dysfunction at this time is acute versus progression of CKD... 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 electrolyte control, and clearance HD today continue HD on M/W/F schedule for now follow trend of repeat labs and UOP for potential renal recovery outpatient dialysis being arranged (2) Chronic kidney disease: Code(s): N18.9 - Chronic kidney disease, unspecified Status: Chronic Assessment and Plan: previous testing in April 2023 with a creatinine running around 1.4 - 1.5mg/dl unfortunately, no other blood work done more recently presumably due to HTN, DM, and vascular disease along with CHF requiring diuretic therapy (3) Edema: Code(s): R60.9 - Edema, unspecified Status: Acute Assessment and Plan: significant swelling/edema/anasarca noted aggressive fluid removal with dialysis continue diuretic therapy since makes urine follow volume status closely (4) Acute hypoxic respiratory failure: Code(s): J96.01 - Acute respiratory failure with hypoxia Status: Acute Assessment and Plan: suspect related to volume oveload this should hopefully improve with fluid removal wean oxygen as tolerated follow CXR results consider DUF (dry ultrafiltration) tomorrow for further fluid removal... (5) Hypertension: Code(s): I10 - Essential (primary) hypertension Status: Chronic Assessment and Plan: reasonable control suspect ongoing fluid removal with HD and diuresis helping follow trend of hemodynamics resume BP medications if needed (6) Paroxysmal atrial fibrillation: Code(s): I48.0 - Paroxysmal atrial fibrillation Status: Acute Assessment and Plan: rate control strategy on anticoagulation (7) Type 2 diabetes mellitus: Code(s): E11.9 - Type 2 diabetes mellitus without complications Status: Chronic Assessment and Plan: follow accu-cheks on SSI glycemic control per hospitalists Will continue to follow. Subjective Date/time seen: 02/07/24 09:45 Interval history: Follow-up for presumed acute kidney injury on chronic kidney disease now requiring renal replacement therapy/dialysis. Tolerating dialysis treatment at the time of my visit (seen on HD at 9:35AM); feels a bit tired today but states swelling/edema as well as shortness of breath seems to be doing a bit better but still requiring supplemental oxygen; no other issues/events overnight or earlier this morning. Exam Narrative: General: large male in NAD Heart: normal S1 and S2; no rub Lungs: clear anteriorly; decreased at bases Abdomen: soft, nontender, nondistended, positive bowel sounds Extremities: no cyanosis or clubbing; 1 - 2+ edema Skin: warm and dry Objective Data Vital Signs Vital Signs: Vital Signs Temp Pulse Resp BP Pulse Ox O2 Del Method O2 Flow Rate 02/07/24 09:17 86 129/84 02/07/24 09:05 2 02/07/24 09:00 98.2 F 86 18 112/64 02/07/24 08:00 95.5 F L 92 18 145/61 H 95 02/07/24 08:18 92 Nasal Cannula 1.5 02/07/24 04:00 100 02/07/24 00:00 92 02/06/24 20:00 92 02/07/24 03:56 96.9 F L 96 20 117/68 90 02/07/24 00:00 96.9 F L 90 18 117/50 L 93 02/06/24 20:00 97.2 F L 98 20 147/74 H 95 02/06/24 19:45 92 Nasal Cannula 1.5 02/06/24 16:30 97.4 F L 100 16 110/56 L 92 02/06/24 16:00 101 H 02/06/24 13:00 98.2 F 98 16 125/54 L 95 02/06/24 1
--- NOTE | 2024-02-07 10:34 | PM.IMPN ---
Progress Note: A&P Assessment and Plan (1) CHF exacerbation: Code(s): I50.9 - Heart failure, unspecified Status: Acute Assessment and Plan: The patient presents with shortness of breath and diffuse edema. CXR showing airspace opacities in all right lung zones and LLL with small right pleural effusion. BNP 4980 Continue Dialysis to improve fluid status. Continue PO Lasix. Wean o2 as tolerated (2) Electrolyte abnormality: Code(s): E87.8 - Other disorders of electrolyte and fluid balance, not elsewhere classified Status: Acute Assessment and Plan: Sodium was slightly low but stable and is likely related to excess fluid. Na stable 135 Monitor and replace electrolytes as needed. (3) ESRD (end stage renal disease) on dialysis: Code(s): N18.6 - End stage renal disease; Z99.2 - Dependence on renal dialysis Status: Acute (4) Hypertension: Code(s): I10 - Essential (primary) hypertension Status: Acute (5) UTI (urinary tract infection): Code(s): N39.0 - Urinary tract infection, site not specified Status: Acute (6) Type 2 diabetes mellitus: Code(s): E11.9 - Type 2 diabetes mellitus without complications Status: Acute (7) Coronary artery disease: Code(s): I25.10 - Atherosclerotic heart disease of [place] coronary artery without angina pectoris Status: Acute (8) Paroxysmal atrial fibrillation: Code(s): I48.0 - Paroxysmal atrial fibrillation Status: Acute (9) Hypoxia: Code(s): R09.02 - Hypoxemia Status: Acute Plan 63yo male with pAFib, CKD with hx of temporary dialysis, CAD status post stents, TRISTEN (not on CPAP), CHF, PVD, HTN and DVT here for SOB and swelling. s over the last couple weeks he has developed increased swelling in his legs which is up to the scrotum and abdomen shortness of breath and nausea with dry heaves. Also reported some mild pressure in his chest which is worse when lying supine. No fever chills. No productive cough. In the ED he was afebrile with stable blood pressure. WBC 8.2 hemoglobin 11.8 INR 1.7 creatinine of 3.5 troponin 0.012 proBNP of 4980. Chest x-ray showed airspace opacities right lung zone and left lower lung zone consistent with atelectasis versus pneumonia and small right pleural effusion. Patient was given IV Lasix and is admitted for congestive heart failure. Nephrology was consulted. Renal ultrasound showed normal kidney size with no hydronephrosis. Echocardiogram with EF 60-65% abnormal diastolic function. Moderate aortic valve sclerosis. Mild pulmonary hypertension. He had proteinuria of 419 mg of protein per g of creatinine. Potassium issue with worsening creatinine. Initiated on dialysis after discussion. Dialysis catheter was placed by Dr. Patel on 01/30/2024. Abdominal ultrasound with small ascites with no evidence of cirrhosis on oral Lasix hypertension controlled on Lasix Norvasc hydralazine and Toprol. UTI with urine consistent urine culture grew Enterococcus and switched to amoxicillin. Venous duplex negative for DVT Type 2 diabetes A1c 8.2 Coronary artery disease status post stent in the past Proximal atrial fibrillation rate controlled on Eliquis Hypoxia due to CHF chest x-ray with small pleural effusion with mild to moderate pulmonary edema pattern 02/07/2024 still requiring oxygen supplementation DVT prophylaxis on Eliquis Full Code status Subjective Date/time seen: 02/07/24 10:34 Interval history: 63yo male with pAFib, CKD with hx of temporary dialysis, CAD status post stents, TRISTEN (not on CPAP), CHF, PVD, HTN and DVT here for SOB and swelling. s over the last couple weeks he has developed increased swelling in his legs which is up to the scrotum and abdomen shortness of breath and nausea with dry heaves. Also reported some mild pressure in his chest which is worse when lying supine. No fever chills. No productive cough. In the ED he was afebri
[2024-02-07] MEDS: EPOETIN ALFA-EPBX 10,000 UNITS/ML VIAL 10000 UNITS IV PUSH (10:45)
[2024-02-07 13:49] LABS: Glucose Point of Care 120 mg/dl (65-105)
[2024-02-07] MEDS: THERAPEUTIC MULTIVITAMINS/MINERALS TAB (*BKC) 1 TABLET PO (13:52)
[2024-02-07] MEDS: TAMSULOSIN HCL 0.4 MG CAPSULE PO (13:53)
[2024-02-07] MEDS: FERROUS SULFATE 325 MG TABLET DR PO (13:53)
[2024-02-07] MEDS: VITAMIN B CMPLX/VIT C/FOLIC AC 1 CAPSULE 1 CAP PO (13:53)
[2024-02-07] MEDS: ASCORBIC ACID 500 MG TABLET PO (13:53)
[2024-02-07] MEDS: DULoxetine HCL 30 MG CAPSULE.DR PO (13:53)
[2024-02-07] MEDS: allopurinoL 100 MG TABLET PO (13:54)
[2024-02-07] MEDS: CHOLECALCIFEROL 1,000 UNITS TABLET 5000 UNITS PO (13:54)
[2024-02-07] MEDS: APIXABAN 2.5 MG TABLET PO ×2 (13:58→20:23)
[2024-02-07] MEDS: AMOXICILLIN 500 MG CAPSULE PO ×2 (13:58→20:23)
[2024-02-07] MEDS: TOLNAFTATE 1% POWDER 45 GM BTL 1 APPLIC TOPICAL ×2 (13:59→20:24)
[2024-02-07] MEDS: EUCERIN CREAM 120 GM JAR 1 APPLIC TOPICAL (14:00)
[2024-02-07 16:55] LABS: Glucose Point of Care 152 mg/dl (65-105)
[2024-02-07] MEDS: MAGNESIUM OXIDE 400 MG TABLET PO (17:18)
[2024-02-07] MEDS: PANTOPRAZOLE 40 MG TABLET PO (17:18)
[2024-02-07] MEDS: FUROSEMIDE 80 MG TABLET PO (17:18)
--- NOTE | 2024-02-07 18:12 | PCCCNOTE ---
Insurance Auth approved (#[id number]) for SNF. She spoke with Jorge from [facility] [employer] Auth for 02/07/2024 through 02/11/2024 and expires 02/13/2024. For additional info call Philomena
[2024-02-07] MEDS: INSULIN ASPART (*BKC) 100 UNITS/ML SUB-Q (21:57)
[2024-02-07 21:58] LABS: Glucose Point of Care 214 mg/dl (65-105)
[2024-02-08] VITALS (27 sets, daily range): BP systolic 121–170; BP diastolic 63–88; PULSE 81–104; RESP 16–18; TEMP 36.2–37.1; O2SAT 93–98
[2024-02-08 05:07] LABS: Hepatitis B Core Ab Total Nonreactive (Nonreactive)
[2024-02-08 05:08] LABS: Basophils Absolute Auto 0.1 K/mm3 (0.0-0.1); Basophils Percent Auto 1.1 % (0.2-1.2); Eosinophils Absolute Auto 0.2 K/mm3 (0-0.3); Eosinophils Percent Auto 2.6 % (0-4.4); Hematocrit 37.6 % (42.0-52.0); Hemoglobin 10.7 g/dL (14.0-18.0); Immature Granulocyte Absolute 0.05 K/mm3 (0.00-0.031); Immature Granulocyte Percent A 0.6 % (0-0.5); Lymphocytes Absolute Auto 0.84 K/mm3 (0.9-3.2); Lymphocytes Percent Auto 9.5 % (18.3-44.2); Mean Corpuscular HGB Conc 28.5 g/dl (32-36); Mean Corpuscular Hemoglobin 26.8 pg (26-34); Mean Corpuscular Volume 94.2 fl (80-100); Mean Platelet Volume 9.5 fl (7.4-10.4); Monocytes Absolute Auto 0.9 K/mm3 (0.1-0.6); Neutrophils Absolute Auto 6.7 K/mm3 (1.3-6.7); Neutrophils Percent Auto 76.2 % (45.5-73.1); Platelet Count Result 183 k/mm3 (150-375); Red Blood Count 3.99 M/mm3 (4.6-6.20); Red Cell Distribution Width 15.8 % (11.5-14.5); White Blood Count 8.8 K/mm3 (4.5-10.0)
[2024-02-08 05:37] LABS: Alanine Aminotransferase 12 U/L (6-50); Albumin Level 3.6 g/dL (3.5-5.1); Alkaline Phosphatase 144 U/L (38-126); Anion Gap 6 mmol/L (8-16); Aspartate Amino Transferase 22 U/L (17-59); Bilirubin,Total 0.6 mg/dL (0.2-1.3); Blood Urea Nitrogen 34 mg/dL (9-20); Calcium 8.7 mg/dL (8.4-10.2); Carbon Dioxide 29 mmol/L (22-30); Chloride 101 mmol/L (98-107); Estimated CRCL calculation 34 ml/min; Estimated Glomerular Filt Rate 21; Glucose 194 mg/dL (65-110); Potassium 4.4 mmol/L (3.4-5.0); Sodium 136 mmol/L (137-145)
[2024-02-08] MEDS: ASCORBIC ACID 500 MG TABLET PO (08:30)
[2024-02-08] MEDS: DULoxetine HCL 30 MG CAPSULE.DR PO (08:30)
[2024-02-08] MEDS: THERAPEUTIC MULTIVITAMINS/MINERALS TAB (*BKC) 1 TABLET PO (08:30)
[2024-02-08] MEDS: APIXABAN 2.5 MG TABLET PO ×2 (08:30→22:13)
[2024-02-08] MEDS: polyethylene glycoL 3350 17 GM POWD.PACK PO (08:30)
[2024-02-08] MEDS: CHOLECALCIFEROL 1,000 UNITS TABLET 5000 UNITS PO (08:30)
[2024-02-08] MEDS: AMOXICILLIN 500 MG CAPSULE PO ×2 (08:30→22:13)
[2024-02-08] MEDS: MAGNESIUM OXIDE 400 MG TABLET PO ×2 (08:31→17:32)
[2024-02-08] MEDS: TOLNAFTATE 1% POWDER 45 GM BTL 1 APPLIC TOPICAL ×2 (08:31→22:13)
[2024-02-08] MEDS: EUCERIN CREAM 120 GM JAR 1 APPLIC TOPICAL (08:31)
[2024-02-08] MEDS: TAMSULOSIN HCL 0.4 MG CAPSULE PO (08:31)
[2024-02-08] MEDS: allopurinoL 100 MG TABLET PO (08:31)
[2024-02-08] MEDS: PANTOPRAZOLE 40 MG TABLET PO ×2 (08:31→17:32)
[2024-02-08] MEDS: FERROUS SULFATE 325 MG TABLET DR PO (08:31)
[2024-02-08 08:38] LABS: Glucose Point of Care 162 mg/dl (65-105)
--- NOTE | 2024-02-08 09:06 | PC.NURSE ---
Addendum entered by Cierra Noe RN 02/08/24 13:12: patient back from dialysis at 1310, 3.7 liters pulled off, patient denies sob, or cp, denies generalized pain. Original Note: to dialysis at 0900
[2024-02-08] MEDS: HEPARIN SODIUM 1,000 UNITS/ML VIAL 6000 UNITS IV PUSH (12:33)
--- NOTE | 2024-02-08 12:52 | P.PNNP_ITS ---
Progress Note: A&P Assessment and Plan (1) BILLIE (acute kidney injury): Code(s): N17.9 - Acute kidney failure, unspecified Status: Acute Assessment and Plan: * known history of chronic kidney disease (see #2) * however, how much of renal dysfunction at this time is acute versus progression of CKD... 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 electrolyte control, and clearance * HD yesterday * continue HD on // schedule for now * follow trend of repeat labs and UOP for potential renal recovery * outpatient dialysis being arranged (2) Chronic kidney disease: Code(s): N18.9 - Chronic kidney disease, unspecified Status: Chronic Assessment and Plan: * previous testing in April 2023 with a creatinine running around 1.4 - 1.5mg/dl * unfortunately, no other blood work done more recently * presumably due to HTN, DM, and vascular disease along with CHF requiring diuretic therapy (3) Edema: Code(s): R60.9 - Edema, unspecified Status: Acute Assessment and Plan: * significant swelling/edema/anasarca noted * aggressive fluid removal with dialysis * continue diuretic therapy since makes urine * follow volume status closely (4) Acute hypoxic respiratory failure: Code(s): J96.01 - Acute respiratory failure with hypoxia Status: Acute Assessment and Plan: * suspect related to volume oveload * this should hopefully improve with fluid removal * wean oxygen as tolerated * follow CXR results * DUF (dry ultrafiltration) today (5) Hypertension: Code(s): I10 - Essential (primary) hypertension Status: Chronic Assessment and Plan: * reasonable control * suspect ongoing fluid removal with HD and diuresis helping * follow trend of hemodynamics * resume BP medications if needed (6) Paroxysmal atrial fibrillation: Code(s): I48.0 - Paroxysmal atrial fibrillation Status: Acute Assessment and Plan: * rate control strategy * on anticoagulation (7) Type 2 diabetes mellitus: Code(s): E11.9 - Type 2 diabetes mellitus without complications Status: Chronic Assessment and Plan: * follow accu-cheks * on SSI * glycemic control per hospitalists Will continue to follow. Subjective Date/time seen: 02/08/24 12:52 Interval history: Follow-up for presumed acute kidney injury on chronic kidney disease now req uiring renal replacement therapy/dialysis. Tolerated dialysis treatment yesterday without any issue and just completed session of dry ultrafiltration to remove further fluid given recent CXR findings ; breathing seems a bit better at this time but still has edema/swelling; no apparent distress noted. Exam Narrative: General: large male in NAD Heart: normal S1 and S2; no rub Lungs: clear anteriorly; decreased at bases Abdomen: soft, nontender, nondistended, positive bowel sounds Extremities: no cyanosis or clubbing; 1 - 2+ edema Skin: warm and intact Objective Data Vital Signs Vital Signs: Vital Signs Temp Pulse Resp BP Pulse Ox O2 Del Method O2 Flow Rate 02/08/24 12:00 89 152/78 H 02/08/24 11:30 89
--- NOTE | 2024-02-08 12:52 | PM.PNNEP ---
Progress Note: A&P Assessment and Plan (1) BILLIE (acute kidney injury): Code(s): N17.9 - Acute kidney failure, unspecified Status: Acute Assessment and Plan: known history of chronic kidney disease (see #2) however, how much of renal dysfunction at this time is acute versus progression of CKD... 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 electrolyte control, and clearance HD yesterday continue HD on /W/F schedule for now follow trend of repeat labs and UOP for potential renal recovery outpatient dialysis being arranged (2) Chronic kidney disease: Code(s): N18.9 - Chronic kidney disease, unspecified Status: Chronic Assessment and Plan: previous testing in April 2023 with a creatinine running around 1.4 - 1.5mg/dl unfortunately, no other blood work done more recently presumably due to HTN, DM, and vascular disease along with CHF requiring diuretic therapy (3) Edema: Code(s): R60.9 - Edema, unspecified Status: Acute Assessment and Plan: significant swelling/edema/anasarca noted aggressive fluid removal with dialysis continue diuretic therapy since makes urine follow volume status closely (4) Acute hypoxic respiratory failure: Code(s): J96.01 - Acute respiratory failure with hypoxia Status: Acute Assessment and Plan: suspect related to volume oveload this should hopefully improve with fluid removal wean oxygen as tolerated follow CXR results DUF (dry ultrafiltration) today (5) Hypertension: Code(s): I10 - Essential (primary) hypertension Status: Chronic Assessment and Plan: reasonable control suspect ongoing fluid removal with HD and diuresis helping follow trend of hemodynamics resume BP medications if needed (6) Paroxysmal atrial fibrillation: Code(s): I48.0 - Paroxysmal atrial fibrillation Status: Acute Assessment and Plan: rate control strategy on anticoagulation (7) Type 2 diabetes mellitus: Code(s): E11.9 - Type 2 diabetes mellitus without complications Status: Chronic Assessment and Plan: follow accu-cheks on SSI glycemic control per hospitalists Will continue to follow. Subjective Date/time seen: 02/08/24 12:52 Interval history: Follow-up for presumed acute kidney injury on chronic kidney disease now requiring renal replacement therapy/dialysis. Tolerated dialysis treatment yesterday without any issue and just completed session of dry ultrafiltration to remove further fluid given recent CXR findings; breathing seems a bit better at this time but still has edema/swelling; no apparent distress noted. Exam Narrative: General: large male in NAD Heart: normal S1 and S2; no rub Lungs: clear anteriorly; decreased at bases Abdomen: soft, nontender, nondistended, positive bowel sounds Extremities: no cyanosis or clubbing; 1 - 2+ edema Skin: warm and intact Objective Data Vital Signs Vital Signs: Vital Signs Temp Pulse Resp BP Pulse Ox O2 Del Method O2 Flow Rate 02/08/24 12:00 89 152/78 H 02/08/24 11:30 89 149/78 H 02/08/24 11:15 85 127/68 02/08/24 10:45 90 156/85 H 02/08/24 10:15 86 155/71 H 02/08/24 10:00 81 133/65 02/08/24 09:17 82 156/81 H 02/08/24 09:08 1.5 02/08/24 08:00 93 02/08/24 09:05 98.2 F 91 16 170/87 H 97 02/08/24 07:28 93 Nasal Cannula 1.5 02/08/24 04:00 97.4 F L 91 16 137/76 96 02/08/24 04:04 93 02/08/24 00:01 104 H 02/08/24 00:00 98 F 98 16 121/70 96 02/07/24 20:00 96.8 F L 92 18 137/65 96 02/07/24 20:00 102 H 02/07/24 20:10 96 Nasal Cannula 1.5 Intake/Ou
--- NOTE | 2024-02-08 15:44 | PM.IMPN ---
Progress Note: A&P Assessment and Plan (1) CHF exacerbation: Code(s): I50.9 - Heart failure, unspecified Status: Acute (2) Electrolyte abnormality: Code(s): E87.8 - Other disorders of electrolyte and fluid balance, not elsewhere classified Status: Acute (3) ESRD (end stage renal disease) on dialysis: Code(s): N18.6 - End stage renal disease; Z99.2 - Dependence on renal dialysis Status: Acute (4) Hypertension: Code(s): I10 - Essential (primary) hypertension Status: Acute (5) UTI (urinary tract infection): Code(s): N39.0 - Urinary tract infection, site not specified Status: Acute (6) Type 2 diabetes mellitus: Code(s): E11.9 - Type 2 diabetes mellitus without complications Status: Acute (7) Coronary artery disease: Code(s): I25.10 - Atherosclerotic heart disease of [place] coronary artery without angina pectoris Status: Acute (8) Paroxysmal atrial fibrillation: Code(s): I48.0 - Paroxysmal atrial fibrillation Status: Acute (9) Hypoxia: Code(s): R09.02 - Hypoxemia Status: Acute Plan 63yo male with pAFib, CKD with hx of temporary dialysis, CAD status post stents, TRISTEN (not on CPAP), CHF, PVD, HTN and DVT here for SOB and swelling. s over the last couple weeks he has developed increased swelling in his legs which is up to the scrotum and abdomen shortness of breath and nausea with dry heaves. Also reported some mild pressure in his chest which is worse when lying supine. No fever chills. No productive cough. In the ED he was afebrile with stable blood pressure. WBC 8.2 hemoglobin 11.8 INR 1.7 creatinine of 3.5 troponin 0.012 proBNP of 4980. Chest x-ray showed airspace opacities right lung zone and left lower lung zone consistent with atelectasis versus pneumonia and small right pleural effusion. Patient was given IV Lasix and is admitted for congestive heart failure. Now on oral Lasix. Nephrology was consulted. Renal ultrasound showed normal kidney size with no hydronephrosis. Echocardiogram with EF 60-65% abnormal diastolic function. Moderate aortic valve sclerosis. Mild pulmonary hypertension. He had proteinuria of 419 mg of protein per g of creatinine. Potassium issue with worsening creatinine. Initiated on dialysis after discussion. Dialysis catheter was placed by Dr. Patel on 01/30/2024. Abdominal ultrasound with small ascites with no evidence of cirrhosis on oral Lasix hypertension controlled on Lasix Norvasc hydralazine and Toprol. UTI with urine consistent urine culture grew Enterococcus and switched to amoxicillin. Venous duplex negative for DVT. Chest x-ray with continued congestion. Dialysis as per Nephrology. Has a chair time Saturday at 1:00 p.m.. Type 2 diabetes A1c 8.2 Coronary artery disease status post stent in the past Proximal atrial fibrillation rate controlled on Eliquis Hypoxia due to CHF chest x-ray with small pleural effusion with mild to moderate pulmonary edema pattern 02/07/2024 still requiring oxygen supplementation DVT prophylaxis on Eliquis Full Code status Subjective Date/time seen: 02/08/24 15:44 Interval history: 63yo male with pAFib, CKD with hx of temporary dialysis, CAD status post stents, TRISTEN (not on CPAP), CHF, PVD, HTN and DVT here for SOB and swelling. s over the last couple weeks he has developed increased swelling in his legs which is up to the scrotum and abdomen shortness of breath and nausea with dry heaves. Also reported some mild pressure in his chest which is worse when lying supine. No fever chills. No productive cough. In the ED he was afebrile with stable blood pressure. WBC 8.2 hemoglobin 11.8 INR 1.7 creatinine of 3.5 troponin 0.012 proBNP of 4980. Chest x-ray showed airspace opacities right lung zone and left lower lung zone consistent with atelectasis versus pneumonia and small right pleural effusion. Patient was given IV Lasix and is admitted
[2024-02-08 17:20] LABS: Glucose Point of Care 231 mg/dl (65-105)
[2024-02-08] MEDS: INSULIN ASPART (*BKC) 100 UNITS/ML SUB-Q ×2 (17:24→22:14)
[2024-02-08] MEDS: FUROSEMIDE 80 MG TABLET PO (17:32)
[2024-02-08 21:00] LABS: Glucose Point of Care 270 mg/dl (65-105)
[2024-02-08] MEDS: oxyCODONE/ACETAMINOPHEN (*CRX) 5-325 MG TABLET 1 TABLET PO (22:13)
[2024-02-09] VITALS (7 sets, daily range): BP systolic 143–145; BP diastolic 73–78; PULSE 86; RESP 18; TEMP 36.4–36.9; O2SAT 94–98
[2024-02-09] MEDS: ASCORBIC ACID 500 MG TABLET PO (08:15)
[2024-02-09] MEDS: VITAMIN B CMPLX/VIT C/FOLIC AC 1 CAPSULE 1 CAP PO (08:15)
[2024-02-09] MEDS: FERROUS SULFATE 325 MG TABLET DR PO (08:15)
[2024-02-09] MEDS: AMOXICILLIN 500 MG CAPSULE PO (08:16)
[2024-02-09] MEDS: CHOLECALCIFEROL 1,000 UNITS TABLET 5000 UNITS PO (08:16)
[2024-02-09] MEDS: DULoxetine HCL 30 MG CAPSULE.DR PO (08:16)
[2024-02-09] MEDS: PANTOPRAZOLE 40 MG TABLET PO (08:16)
[2024-02-09] MEDS: allopurinoL 100 MG TABLET PO (08:16)
[2024-02-09] MEDS: FUROSEMIDE 80 MG TABLET PO (08:16)
[2024-02-09] MEDS: THERAPEUTIC MULTIVITAMINS/MINERALS TAB (*BKC) 1 TABLET PO (08:16)
[2024-02-09] MEDS: APIXABAN 2.5 MG TABLET PO (08:16)
[2024-02-09] MEDS: MAGNESIUM OXIDE 400 MG TABLET PO (08:16)
[2024-02-09] MEDS: polyethylene glycoL 3350 17 GM POWD.PACK PO (08:16)
[2024-02-09] MEDS: TAMSULOSIN HCL 0.4 MG CAPSULE PO (08:16)
[2024-02-09] MEDS: TOLNAFTATE 1% POWDER 45 GM BTL 1 APPLIC TOPICAL (08:17)
[2024-02-09] MEDS: EUCERIN CREAM 120 GM JAR 1 APPLIC TOPICAL (08:17)
[2024-02-09 08:28] LABS: Glucose Point of Care 193 mg/dl (65-105)
[2024-02-09 12:22] LABS: Glucose Point of Care 219 mg/dl (65-105)
[2024-02-09] MEDS: INSULIN ASPART (*BKC) 100 UNITS/ML SUB-Q (12:22)
--- NOTE | 2024-02-09 12:35 | PM.PNNEP ---
Progress Note: A&P Assessment and Plan (1) BILLIE (acute kidney injury): Code(s): N17.9 - Acute kidney failure, unspecified Status: Acute Assessment and Plan: known history of chronic kidney disease (see #2) however, how much of renal dysfunction at this time is acute versus progression of CKD... evaluation to date: urine electrolytes prerenal CPK normal renal ultrasound normal (ascites noted) Echo with mild pulmonary HTN and elevated right atrial pressure initiated on [facility] WRITER/dialysis for optimization of volume status. electrolyte control, and clearance HD tomorrow continue HD on M/W/F schedule for now follow trend of repeat labs and UOP for potential renal recovery outpatient dialysis being arranged/finalized (2) Chronic kidney disease: Code(s): N18.9 - Chronic kidney disease, unspecified Status: Chronic Assessment and Plan: previous testing in April 2023 with a creatinine running around 1.4 - 1.5mg/dl unfortunately, no other blood work done more recently presumably due to HTN, DM, and vascular disease along with CHF requiring diuretic therapy (3) Edema: Code(s): R60.9 - Edema, unspecified Status: Acute Assessment and Plan: significant swelling/edema/anasarca noted aggressive fluid removal with dialysis continue diuretic therapy since makes urine follow volume status closely (4) Acute hypoxic respiratory failure: Code(s): J96.01 - Acute respiratory failure with hypoxia Status: Acute Assessment and Plan: suspect related to volume oveload this should hopefully improve with fluid removal wean oxygen as tolerated follow CXR results DUF (dry ultrafiltration) today (5) Hypertension: Code(s): I10 - Essential (primary) hypertension Status: Chronic Assessment and Plan: reasonable control suspect ongoing fluid removal with HD and diuresis helping follow trend of hemodynamics resume BP medications if needed (6) Paroxysmal atrial fibrillation: Code(s): I48.0 - Paroxysmal atrial fibrillation Status: Acute Assessment and Plan: rate control strategy on anticoagulation (7) Type 2 diabetes mellitus: Code(s): E11.9 - Type 2 diabetes mellitus without complications Status: Chronic Assessment and Plan: follow accu-cheks on SSI glycemic control per hospitalists Not opposed to discharge from renal perspective if otherwise medically stable and outpatient dialysis schedule/facility has been finalized. Will continue to follow. Subjective Date/time seen: 02/09/24 12:35 Interval history: Follow-up for presumed acute kidney injury on chronic kidney disease now requiring renal replacement therapy/dialysis. Tolerated dry ultrafiltration session yesterday morning without any issues or problems; breathing/respiratory status and swelling/edema continue to improve with diuresis and ultrafiltration/fluid removal with dialysis; nursing trying to further wean oxygen. Exam Narrative: General: large male in NAD Heart: normal S1 and S2; no rub Lungs: clear anteriorly; decreased at bases Abdomen: soft, nontender, nondistended, positive bowel sounds Extremities: no cyanosis or clubbing; 1 - 2+ edema Skin: no rash or nodules Objective Data Vital Signs Vital Signs: Vital Signs Temp Pulse Resp BP Pulse Ox O2 Del Method O2 Flow Rate 02/09/24 11:00 98.4 F 86 18 145/73 H 98 02/09/24 09:18 94 Nasal Cannula 1 02/09/24 08:00 98 Nasal Cannula 1 02/09/24 03:38 97.6 F 86 18 143/78 H 98 02/08/24 23:58 98.1 F 87 16 149/78 H 97 02/08/24 20:00 96 Nasal Cannula 1 02/08/24 20:00 83 02/08/24 19:17 98.1 F 81 18 143/75 H 96 02/08/24 16:00 98.7 F 86 16 139/71 98 02/08/24 17:00 97 Nasal Cannula 1 02/08/24 16:00 92 Intake/Output Intake/Output: Intake & Output 02/05
--- NOTE | 2024-02-09 12:35 | P.PNNP_ITS ---
Progress Note: A&P Assessment and Plan (1) BILILE (acute kidney injury): Code(s): N17.9 - Acute kidney failure, unspecified Status: Acute Assessment and Plan: * known history of chronic kidney disease (see #2) * however, how much of renal dysfunction at this time is acute versus progression of CKD... * evaluation to date: * urine electrolytes prerenal * CPK normal * renal ultrasound normal (ascites noted) * Echo with mild pulmonary HTN and elevated right atrial pressure * initiated on PEAR[employer] HAND/dialysis for optimization of volume status. electrolyte control, and clearance * HD tomorrow * continue HD on // schedule for now * follow trend of repeat labs and UOP for potential renal recovery * outpatient dialysis being arranged/finalized (2) Chronic kidney disease: Code(s): N18.9 - Chronic kidney disease, unspecified Status: Chronic Assessment and Plan: * previous testing in April 2023 with a creatinine running around 1.4 - 1.5mg/dl * unfortunately, no other blood work done more recently * presumably due to HTN, DM, and vascular disease along with CHF requiring diuretic therapy (3) Edema: Code(s): R60.9 - Edema, unspecified Status: Acute Assessment and Plan: * significant swelling/edema/anasarca noted * aggressive fluid removal with dialysis * continue diuretic therapy since makes urine * follow volume status closely (4) Acute hypoxic respiratory failure: Code(s): J96.01 - Acute respiratory failure with hypoxia Status: Acute Assessment and Plan: * suspect related to volume oveload * this should hopefully improve with fluid removal * wean oxygen as tolerated * follow CXR results * DUF (dry ultrafiltration) today (5) Hypertension: Code(s): I10 - Essential (primary) hypertension Status: Chronic Assessment and Plan: * reasonable control * suspect ongoing fluid removal with HD and diuresis helping * follow trend of hemodynamics * resume BP medications if needed (6) Paroxysmal atrial fibrillation: Code(s): I48.0 - Paroxysmal atrial fibrillation Status: Acute Assessment and Plan: * rate control strategy * on anticoagulation (7) Type 2 diabetes mellitus: Code(s): E11.9 - Type 2 diabetes mellitus without complications Status: Chronic Assessment and Plan: * follow accu-cheks * on SSI * glycemic control per hospitalists Not opposed to discharge from renal perspective if otherwise medically stable a nd outpatient dialysis schedule/facility has been finalized. Will continue to follow. Subjective Date/time seen: 02/09/24 12:35 Interval history: Follow-up for presumed acute kidney injury on chronic kidney disease now requiring renal replacement therapy/dialysis. Tolerated dry ultrafiltration session yesterday morning without any issues or problems; breathing/respiratory status and swelling/edema continue to improve with diuresis and ultrafiltration/fluid removal with dialysis; nursing trying to further wean oxygen. Exam Narrative: General: large male in NAD Heart: normal S1 and S2; no rub Lungs: clear anteriorly; decreased at bases Abdomen: soft, nontender, nondistended, positive bowel sounds Extremities: no cyanosis or clubbing; 1 - 2+ edema Skin: no rash or nodules Objective Data Vital Signs Vital Signs: Vital
--- NOTE | 2024-02-09 13:55 | PM.DS ---
DS: Admitting Diagnosis Discharge Date 02/09/2024 Admitting Diagnosis Shortness of breath DS: Discharge Diagnosis Discharge Diagnosis (1) CHF exacerbation: Code(s): I50.9 - Heart failure, unspecified Status: Acute (2) Electrolyte abnormality: Code(s): E87.8 - Other disorders of electrolyte and fluid balance, not elsewhere classified Status: Acute (3) ESRD (end stage renal disease) on dialysis: Code(s): N18.6 - End stage renal disease; Z99.2 - Dependence on renal dialysis Status: Acute (4) Hypertension: Code(s): I10 - Essential (primary) hypertension Status: Acute (5) UTI (urinary tract infection): Code(s): N39.0 - Urinary tract infection, site not specified Status: Acute (6) Type 2 diabetes mellitus: Code(s): E11.9 - Type 2 diabetes mellitus without complications Status: Acute (7) Coronary artery disease: Code(s): I25.10 - Atherosclerotic heart disease of [place] coronary artery without angina pectoris Status: Acute (8) Paroxysmal atrial fibrillation: Code(s): I48.0 - Paroxysmal atrial fibrillation Status: Acute (9) Hypoxia: Code(s): R09.02 - Hypoxemia Status: Acute DS: Summary Hospital Course Hospital Course: 63yo male with pAFib, CKD with hx of temporary dialysis, CAD status post stents, TRISTEN (not on CPAP), CHF, PVD, HTN and DVT here for SOB and swelling over the last couple weeks. He has developed increased swelling in his legs which is up to the scrotum and abdomen shortness of breath and nausea with dry heaves.? Also reported some mild pressure in his chest which is worse when lying supine.? No fever chills.? No productive cough.? In the ED he was afebrile with stable blood pressure.? WBC 8.2 hemoglobin 11.8 INR 1.7 creatinine of 3.5 troponin 0.012 proBNP of 4980.? Chest x-ray showed airspace opacities right lung zone and left lower lung zone consistent with atelectasis versus pneumonia and small right pleural effusion.?Patient was given IV Lasix and is admitted for congestive heart failure Now on oral Lasix.? Nephrology was consulted.? Renal ultrasound showed normal kidney size with no hydronephrosis.? Echocardiogram with EF 60-65% abnormal diastolic function.? Moderate aortic valve sclerosis.? Mild pulmonary hypertension.? He had proteinuria of 419 mg of protein per g of creatinine.? Potassium issue with worsening creatinine.? Initiated on dialysis after discussion.? Dialysis catheter was placed by Dr. Patel on 01/30/2024.? Abdominal ultrasound with small ascites with no evidence of cirrhosis on oral Lasix hypertension controlled on Lasix. His usual Norvasc hydralazine and Toprol had been discontinued. With history of paroxysmal atrial fibrillation Toprol is resumed on a lower dose.? UTI with urine consistent urine culture grew Enterococcus and switched to amoxicillin. Finish the course of total 7 days. Venous duplex negative for DVT.? Chest x-ray with continued congestion.? Dialysis as per Nephrology.? Has a chair time Saturday at 1:00 p.m. this was arranged with the help of care coordination Type 2 diabetes A1c 8.2 Coronary artery disease status post stent in the past Proximal atrial fibrillation rate controlled on Eliquis Hypoxia due to CHF chest x-ray with small pleural effusion with mild to moderate pulmonary edema pattern 02/07/2024. Oxygen has been tapered off by the time of discharge DVT prophylaxis on Eliquis Full Code status Time Spent with Patient Time attestation: Total time spent providing and/or coordinating discharge services: 35 minutes Exam Narrative: General- chronically ill not in acute distress Neck - Tunnelled HD catheter right upper chest tunnelled to right IJ Chest - decreased BS in the right base CV - irregularly irregular. Tele showing AFib with controlled HR Abd - Soft, less firm, obese, NT - Hendrix secured draining clear yellow urine. Scrotal edema noted and better
[2024-02-09 15:29] LABS: SARS-CoV-2 RNA PCR Negative (Negative)
--- NOTE | 2024-02-10 16:47 | WPDHPUPDATE1 ---
History and Physical Update Update Date/Time: 01/30/24 10:27 History and Physical has been reviewed, including an updated exam of the patient. There are NO changes in the patient's condition. Risks, benefits, and alternatives have been discussed and questions answered. Patient agrees to proceed with procedure.
== END 2024-02-09 16:20 | DRG 194 ==
LOC: ANHED 14:21 → ANHIMU 15:04 → ANH2MED 01-31 12:03
PROVIDERS: Family Medicine; Internal Medicine; Internal Medicine Nephrology; Physician Assistant; Surgery; Admitting Provider Internal Medicine; Emergency Provider Emergency Medicine; Visit Provider Internal Medicine
PROC: 0JH63XZ Insertion of Tunneled Vascular Access Device into Chest Subcutaneous Tissue and Fascia, Percutaneous Approach (ICD-10-PCS; CPT 36908; principal; 2024-01-30 15:30)
DX: I13.2 Hypertensive heart and chronic kidney disease with heart failure and with stage 5 chronic kidney disease, or end stage renal disease (principal); I50.31 Acute diastolic (congestive) heart failure; E11.22 Type 2 diabetes mellitus with diabetic chronic kidney disease; N18.6 End stage renal disease; J96.01 Acute respiratory failure with hypoxia; Z99.2 Dependence on renal dialysis; I48.0 Paroxysmal atrial fibrillation; Z79.01 Long term (current) use of anticoagulants; I25.10 Atherosclerotic heart disease of native coronary artery without angina pectoris; Z95.5 Presence of coronary angioplasty implant and graft; Z86.718 Personal history of other venous thrombosis and embolism; E11.51 Type 2 diabetes mellitus with diabetic peripheral angiopathy without gangrene; E78.5 Hyperlipidemia, unspecified; G47.33 Obstructive sleep apnea (adult) (pediatric); Z90.49 Acquired absence of other specified parts of digestive tract; Z89.512 Acquired absence of left leg below knee; Z79.4 Long term (current) use of insulin; Z89.421 Acquired absence of other right toe(s); E87.5 Hyperkalemia; E87.1 Hypo-osmolality and hyponatremia; Z11.52 Encounter for screening for COVID-19; N39.0 Urinary tract infection, site not specified; B95.2 Enterococcus as the cause of diseases classified elsewhere; K59.00 Constipation, unspecified; N17.9 Acute kidney failure, unspecified; E66.9 Obesity, unspecified; Z68.42 Body mass index [BMI] 45.0-49.9, adult
CPT/HCPCS: 36415; 71045; 76705; 76775; 77001; 80048; 80053; 80069; 80202; 82533; 82550; 82570; 82948; 83036; 83735; 83880; 83883; 83970; 84145; 84156; 84300; 84439; 84443; 84480; 84484; 84540; 85025; 85027; 85610; 85652; 85730; 86038; 86140; 86160; 86162; 86334; 86704; 86705; 86706; 86850; 86900; 86901; 87040; 87077; 87086; 87088; 87181; 87340; 87635; 90715; 93005; 93970; 96374; 97110; 97163; 97166; 97530; 97535; 99291; A9270; C1750; C1769; C8929; G0257; J0690; J0696; J1644; J1815; J1940; J2405; J2704; J3370; J7030; J7040; P9047; Q5105; Q9957

== ENCOUNTER 2024-06-22 11:09 | Outpatient (CLI) | payer OTHER, SELFPAY ==
[2024-06-22 11:45] LABS: Hemoglobin 11.1 g/dL (14.0-18.0); Mean Corpuscular HGB Conc 33.6 g/dl (32-36); Mean Corpuscular Hemoglobin 30.8 pg (26-34); Mean Corpuscular Volume 91.7 fl (80-100); Mean Platelet Volume 9.7 fl (7.4-10.4); Platelet Count Result 211 k/mm3 (150-375); Red Cell Distribution Width 12.7 % (11.5-14.5); White Blood Count 8.6 K/mm3 (4.5-10.0)
[2024-06-22 12:02] LABS: Creatinine Urine 24.1 mg/dL; Total Protein Urine Random 99 mg/dL; Ur Ttl Prot Creatinine Ratio 4.11 mg/mg (0-0.20)
[2024-06-22 12:07] LABS: Anion Gap 14 mmol/L (4-12); Blood Urea Nitrogen 88 mg/dL (9-20); Calcium 8.8 mg/dL (8.4-10.2); Carbon Dioxide 26 mmol/L (22-30); Chloride 95 mmol/L (98-107); Estimated Glomerular Filt Rate 19; Glucose 404 mg/dL (65-110); Phosphorus 4.6 mg/dL (2.5-4.5); Potassium 4.1 mmol/L (3.4-5.0); Sodium 135 mmol/L (137-145)
[2024-06-22 12:16] LABS: Parathyroid Intact 254.9 pg/mL (7.5-53.5)
== END 2024-06-22 11:10 | disposition home or self-care (01) ==
LOC: ANHLAB 11:12
PROVIDERS: PCP Nurse Practitioner; Visit Provider Internal Medicine Nephrology
DX: N17.9 Acute kidney failure, unspecified (principal); N18.9 Chronic kidney disease, unspecified
CPT/HCPCS: 36415; 80069; 82570; 83970; 84156; 85027

== ENCOUNTER 2024-07-12 13:03 | Emergency (ER) | payer OTHER, SELFPAY ==
--- NOTE | ~2024-07-12 | CT_ITS ---
EXAMINATION: CT abd pelvis lumbar wo con DATE: 07/12/2024 14:46 INDICATION: abd pain, diarrhea, melena,lt low back pain radiates down TECHNIQUE: Computed tomography (CT) of the abdomen and pelvis was performed without intravenous contr ast. Automated exposure control and iterative reconstruction technique were employed. The dose-length product was 2832.85 mGy-cm. COMPARISON: None. FINDINGS: Lower thorax: Aortic valve and coronary artery calcification. Small volume right pleural fluid collec tion. Subsegmental right basilar consolidation. Liver: Normal. Biliary/Gallbladder: Gallbladder is absent. No bile duct dilation. Pancreas: Extensive pancreatic calcification as can be seen with chronic pancreatitis. Spleen: Normal. Adrenals:No mass. Kidneys: No suspicious mass, obstructing stone, or hydronephrosis. Moderate bilateral perinephric str anding. GI tract: No small or large bowel dilation. Normal appendix. Diverticulosis without diverticulitis. Mesentery/Peritoneum: No ascites, mass, or free air. Retroperitoneum: No mass. Atherosclerotic abdominal aortic and/or arterial calcifications. Pelvis: Moderate bladder wall thickening. Mild prostatomegaly. Soft Tissues: Soft tissues and body wall unremarkable. Bones (not including lumbar spine): No acute osseous finding. Lumbar spine: 5 nonrib-bearing lumbar-type vertebral bodies. Rudimentary disc at S1-S2. Pedicles inta ct. Normal vertebral body alignment. Apparent widening of the L4-5 disc space with erosion of the inf erior L4 endplate and superior L5 endplate. 11 mm left subarticular protrusion/extrusion at L4-5 caus ing moderate central canal narrowing and severe lateral recess narrowing. IMPRESSION: Small right pleural effusion with subsegmental left basilar atelectasis/consolidation. Findings suspicious for osteomyelitis/discitis at L4-5. 11 mm, left subarticular protrusion/extrusion versus mass (i.e. phlegmon) at L4-5 causing moderate ce ntral canal and severe left lateral recess narrowing. Cystitis versus bladder wall thickening from incomplete distention or chronic outlet obstruction. These findings were discussed with Tavia Acosta PA-C at 3:32 PM on 07/12/2024 Reviewed, dictated and finalized at location [facility]. IMPRESSION: Small right pleural effusion with subsegmental left basilar atelectasis/consoli dation. Findings suspicious for osteomyelitis/discitis at L4-5. 11 mm, left subarticular protrusion/extrusion versus mass (i.e. phlegmon) at L4 -5 causing moderate central canal and severe left lateral recess narrowing. Cystitis versus bladder wall thickening from incomplete distention or chronic o utlet obstruction. These findings were discussed with Tavia Acosta PA-C at 3:32 PM on 07/12/2024
[2024-07-12 13:00] VITALS: BP 140/96; PULSE 84; RESP 16; TEMP 36.7; O2SAT 100
[2024-07-12 13:46] LABS: Basophils Absolute Auto 0.1 K/mm3 (0.0-0.1); Basophils Percent Auto 0.7 % (0.2-1.2); Eosinophils Absolute Auto 0.4 K/mm3 (0-0.3); Eosinophils Percent Auto 3.3 % (0-4.4); Hematocrit 38.7 % (42.0-52.0); Immature Granulocyte Absolute 0.09 K/mm3 (0.00-0.031); Immature Granulocyte Percent A 0.7 % (0-0.5); Lymphocytes Absolute Auto 1.39 K/mm3 (0.9-3.2); Lymphocytes Percent Auto 11.3 % (18.3-44.2); Mean Corpuscular HGB Conc 33.6 g/dl (32-36); Mean Corpuscular Volume 89.4 fl (80-100); Mean Platelet Volume 9.6 fl (7.4-10.4); Monocytes Absolute Auto 1.1 K/mm3 (0.1-0.6); Neutrophils Absolute Auto 9.2 K/mm3 (1.3-6.7); Platelet Count Result 328 k/mm3 (150-375); Red Blood Count 4.33 M/mm3 (4.6-6.20); Red Cell Distribution Width 11.9 % (11.5-14.5); White Blood Count 12.3 K/mm3 (4.5-10.0)
--- NOTE | 2024-07-12 13:49 | PC.NURSE ---
patient unable to urinate at this time and politely declines straight catheter due to not having anything to drink since last night. patient educated to use call light with any urge to urinate.
[2024-07-12 14:04] LABS: Alanine Aminotransferase 23 U/L (6-50); Albumin Level 4.1 g/dL (3.5-5.1); Alkaline Phosphatase 219 U/L (38-126); Anion Gap 19 mmol/L (4-12); Aspartate Amino Transferase 26 U/L (17-59); Bilirubin,Total 0.7 mg/dL (0.2-1.3); Blood Urea Nitrogen 96 mg/dL (9-20); Calcium 9.3 mg/dL (8.4-10.2); Carbon Dioxide 24 mmol/L (22-30); Chloride 93 mmol/L (98-107); Estimated CRCL calculation 26 ml/min; Estimated Glomerular Filt Rate 17; Glucose 208 mg/dL (65-110); Potassium 4.3 mmol/L (3.4-5.0); Sodium 136 mmol/L (137-145)
[2024-07-12 14:19] LABS: Lactic Acid Reflex 1.7 mmol/L (0.7-2.0)
--- NOTE | 2024-07-12 14:25 | ED.ABDPAIN ---
HPI - Abdominal Pain General Chief Complaint: Abdominal Pain <Tavia Acosta PA-C - Last Filed: 07/13/24 02:35> Stated Complaint: flank pain <Tavia Acosta PA-C - Last Filed: 07/13/24 02:35> Time Seen by Provider: 07/12/24 14:10 <Tavia Acosta PA-C - Last Filed: 07/13/24 02:35> Source: patient <YONY Arrington Last Filed: 07/13/24 02:35> Mode of arrival: ambulatory <YONY Arrington Last Filed: 07/13/24 02:35> Limitations: no limitations <YONY Arrington Last Filed: 07/13/24 02:35> History of Present Illness HPI narrative: This is a 64-year-old male that presents to the emergency department for left-sided low back pain. Ongoing over the last several months. Worsening over the last couple of days. No recent injuries or trauma. Reports he has not been able to perform his ADLs due to pain. The pain radiates down the left side of his leg. He also reports since yesterday he has been having some loose stools that are dark. Denies fever, vomiting, saddle anesthesia, or bowel/bladder incontinence. <Tavia Acosta PA-C - Last Filed: 07/13/24 02:35> Related Data Home Medications: Home Medications Medication Instructions Recorded Confirmed Saccharomyces boulardii 250 mg 250 mg PO DAILY PRN Constipation 01/28/24 06/30/24 capsule (Daily Probiotic (S. boulardii)) allopurinol 100 mg tablet 100 mg PO DAILY 01/28/24 06/30/24 apixaban 5 mg tablet (Eliquis) 2.5 mg PO BID 01/28/24 06/30/24 ascorbic acid (vitamin C) 500 mg 500 mg PO DAILY 01/28/24 06/30/24 tablet (Vitamin C) cholecalciferol (vitamin D3) 125 125 mcg PO DAILY 01/28/24 06/30/24 mcg (5,000 unit) tablet docusate sodium 100 mg capsule 100 mg PO BID PRN Constipation 01/28/24 06/30/24 duloxetine 30 mg capsule,delayed 30 mg PO DAILY 01/28/24 06/30/24 release ferrous sulfate 325 mg (65 mg 65 mg PO DAILY 01/28/24 06/30/24 iron) tablet (FeroSul) insulin glargine 100 unit/mL 12 unit subcut HS 01/28/24 06/30/24 subcutaneous solution magnesium oxide 400 mg (241.3 mg 500 mg PO BID 01/28/24 06/30/24 magnesium) tablet multivitamin with minerals 1 tablet PO DAILY 01/28/24 06/30/24 (Multiple Vitamin-Minerals tablet) omeprazole 20 mg capsule,delayed 40 mg PO BID 01/28/24 06/30/24 release ondansetron 4 mg disintegrating 4 mg PO Q8H PRN Nausea 01/28/24 06/30/24 tablet tamsulosin 0.4 mg capsule 0.4 mg PO DAILY 01/28/24 06/30/24 <Tavia Acosta PA-C - Last Filed: 07/13/24 02:35> Allergies/Adverse Reactions: Allergies Allergy/AdvReac Type Severity Reaction Status Date / Time clopidogrel Allergy Unknown Other Verified 06/29/24 11:10 pregabalin Allergy Unknown Other Verified 06/29/24 11:10 <Tavia Acosta PA-C - Last Filed: 07/13/24 02:35> Review of Systems Review of Systems: CONSTITUTIONAL: Denies fever GASTROINTESTINAL: Reports abdominal pain, and diarrhea. MUSCULOSKELETAL: Reports back pain, joint pain, and myalgia. NEUROLOGIC: Denies focal numbness, or weakness. <Tavia Acosta PA-C - Last Filed: 07/13/24 02:35> All systems reviewed & are unremarkable except as noted in HPI and below <Tavia Acosta PA-C - Last Filed: 07/13/24 02:35> [facility], [facility] Past Medical History Medical History: Medical History Chronic kidney disease Coronary artery disease Deep venous thrombosis Depression Heart failure of unknown type Hypertension Obstructive sleep apnea Does not use CPAP. Paroxysmal atrial fibrillation Peripheral vascular disease Type 2 diabetes mellitus <Tavia Acosta PA-C - Last Filed: 07/13/24 02:35> Surgical History Surgical History: Surgical History History of amputation of toe History of cardiac catheterization History of cholecystectomy History of coronary artery stent placement History of left below knee amputation <Danial
[2024-07-12 14:39] LABS: Add Urine Microscopic? YES; Appearance Urine Turbid (Clear); Bacteria Urine 4+ /hpf; Bilirubin Urine Negative (Negative); Blood Urine 2+ (Negative); Color Urine Yellow (Yellow); Glucose Urine UA 2+ mg/dL (Negative); Ketones Urine 1+ mg/dL (Negative); Leukocyte Esterase Ur 3+ LEU/UL (Negative); Nitrate Urine Negative (Negative); Protein Urine 3+ mg/dL (Negative); Specific Grav Ur 1.018 (1.001-1.035); Squamous Epithelial Cell Urine Occasional /hpf (Few); Urobilinogen Urine 0.2 mg/dL (<2.0); WBC Urine >100 /hpf (0-3); pH Urine 5.5 (5.0-9.0)
[2024-07-12 14:44] LABS: INR 1.5; Prothrombin Time 18.4 Seconds (11.1-14.7)
[2024-07-12 14:45] LABS: Partial Thromboplastin Time 42.5 Seconds (22.3-36.8)
[2024-07-12] MEDS: ONDANSETRON INJ 4 MG/2 ML VIAL IV PUSH (15:26)
[2024-07-12] MEDS: MORPHINE SULFATE (*CRX) 4 MG/ML INJ IV PUSH ×2 (15:26→18:37)
[2024-07-12] MEDS: SODIUM CHLORIDE 0.9% IV 500 ML 999 ML IV CONT (15:27)
[2024-07-12 15:36] VITALS: BP 153/81; PULSE 88; RESP 14; O2SAT 99
[2024-07-12 16:07] LABS: Erythrocyte Sedimentation Rate 35 mm/hr (0-20)
[2024-07-12 16:13] LABS: CRP 13.4 mg/dL (<1.0)
[2024-07-12 17:02] VITALS: BP 147/94; PULSE 91; RESP 19; O2SAT 97
[2024-07-12 17:17] VITALS: BP 138/108; PULSE 89; RESP 18; O2SAT 98
--- NOTE | 2024-07-12 18:15 | PC.NURSE ---
report given to TROY Caputo at [facility] in [place].
[2024-07-12 18:17] VITALS: BP 141/78; PULSE 88; RESP 18
[2024-07-12 19:18] VITALS: PULSE 97; RESP 26; O2SAT 99
[2024-07-12] MEDS: PANTOPRAZOLE SODIUM IV 40 MG VIAL 80 MG IV PUSH (19:43)
--- NOTE | 2024-07-12 19:53 | PC.NURSE ---
[facility] ems arrives at 1930 to transfer patient via ALS ambulance to [facility]. patient has ceftriaxone infusing with ALS ambulance. patient leaves ER at 1950 with belongings, chart, and IV antibiotics infusing.
== END 2024-07-12 19:59 | disposition short-term general hospital (02) ==
PROVIDERS: Student in an Organized Health Care Education/Training Program; Emergency Provider Physician Assistant; PCP Nurse Practitioner
DX: M46.46 Discitis, unspecified, lumbar region (principal); K92.1 Melena; R82.81 Pyuria; E11.22 Type 2 diabetes mellitus with diabetic chronic kidney disease; I13.0 Hypertensive heart and chronic kidney disease with heart failure and stage 1 through stage 4 chronic kidney disease, or unspecified chronic kidney disease; I50.9 Heart failure, unspecified; N18.9 Chronic kidney disease, unspecified; I48.0 Paroxysmal atrial fibrillation; E11.51 Type 2 diabetes mellitus with diabetic peripheral angiopathy without gangrene; Z86.718 Personal history of other venous thrombosis and embolism; G47.33 Obstructive sleep apnea (adult) (pediatric); Z95.1 Presence of aortocoronary bypass graft; Z89.429 Acquired absence of other toe(s), unspecified side; Z90.49 Acquired absence of other specified parts of digestive tract; Z89.512 Acquired absence of left leg below knee; Z79.01 Long term (current) use of anticoagulants; Z79.4 Long term (current) use of insulin; Z79.899 Other long term (current) drug therapy
CPT/HCPCS: 36415; 72131; 74176; 80053; 81001; 83605; 85025; 85610; 85652; 85730; 86140; 87040; 87077; 87086; 87088; 87186; 96361; 96374; 96375; 96376; 99285; J0696; J2270; J2405; J2470; J7040

== ENCOUNTER 2024-08-28 17:07 | Inpatient (IN) | payer OTHER, SELFPAY ==
[2024-08-28] VITALS (19 sets, daily range): BP systolic 99–170; BP diastolic 84–101; PULSE 100–124; RESP 12–28; TEMP 36.1–36.4; O2SAT 91–100; BMI 42.3; BMI 41.7
--- NOTE | ~2024-08-28 | CT_ITS ---
CT chst ab pel [place] lum wo Ordering provider: Lise Deleon PA-C History: 64 years Male with . abnml cxr, abd bloating . Comparison: None. Technique: CT chest without IV contrast. CT abdomen and pelvis CT abdomen and pelvis without IV and w ith oral contrast. Radiation reduction technique utilized The dose-length product was 3402.08 mGy-cm. FINDINGS: CHEST: --VISUALIZED THORACIC INLET: Normal. --MEDIASTINUM: Aorta/coronary arteries: Mild atheromatous disease. Heart/other: The heart is not enlarged. Moderate pericardial effusion is noted. Lymph nodes: No mediastinal or hilar adenopathy. Lymph nodes are seen in the paratracheal, prevascula r and subcarinal areas. The largest lymph node measures 1.2 cm. --LUNGS: Bilateral pleural effusion with adjacent atelectasis. Opacity in the left upper lobe suggest dean of pneumonia. Nodule is seen in the middle lobe measuring [address] follow-up advised. No pulmonary nodules or masses. No infiltrates.. No pneumothorax. --MUSCULOSKELETAL: Soft tissues: The superficial soft tissues are normal. Bones: Mild to moderate degenerative changes of the spine. No suspicious bony lytic or sclerotic lesi ons. ABDOMEN/PELVIS: --MUSCULOSKELETAL: Bones: Destructive changes are seen in the area of the endplates of L4 and L5 which may be degenerati ve or infectious. No definite soft tissue swelling seen around the vertebra anteriorly or posteriorly . MRI evaluation is advised. Otherwise, moderate Degenerative changes of the spine. No suspicious bon y lytic or sclerotic lesions. Bilateral sacroiliacs. Multilevel spinal canal stenosis. Superficial soft tissues: Bilateral inguinal fat containing hernia. Fat stranding in the subcutaneous tissues. Otherwise, The superficial soft tissues are normal. --UPPER ABDOMINAL ORGANS: Liver: Normal. Gallbladder: Status post cholecystectomy. Spleen: Normal. Stomach/duodenum: Normal. Pancreas: Calcification seen in the pancreas with hypodensity seen in the area of the head. Follow-up advised.. Adrenals: Normal. Kidneys: Normal. --PELVIC ORGANS: The bladder shows slightly thickened wall with underfilling. No bladder stones. --BOWEL AND MESENTERY: Colon: Mild diverticulosis without diverticulitis sigmoid colon no evidence of diverticulitis. Normal appendix. Small Bowel: Normal. No obstruction. Peritoneum/mesentery: No free air. Minimal free fluid is seen in the left paracolic gutter.. No mesen teric lymphadenopathy. --RETROPERITONEUM: Mild atheromatous disease of the abdominal aorta. No retroperitoneal lymphadenop athy. IMPRESSION: CHEST: 1. Moderate Pericardial effusion. 2. Possible pneumonia in the left upper lobe. 3. Bilateral pleural effusion with adjacent atelectasis. 4. Nodule in the middle lobe measuring 9 mm millimeters. 3 months follow-up CT advised. ABDOMEN/PELVIS: 1. Possible soft tissue density area in the head of the pancreas. Mass is not excluded. 2. Fluid in the left paracolic gutter. 3. Destructive changes in the spine at the level of L4-L5 which may be inflammatory or degenerative. MRI evaluation is advised. Reviewed, dictated and finalized at location A. IMPRESSION: CHEST: 1. Moderate Pericardial effusion. 2. Possible pneumonia in the left upper lobe. 3. Bilateral pleural effusion with adjacent atelectasis. 4. Nodule in the middle lobe measuring 9 mm millimeters. 3 months follow-up CT advised. ABDOMEN/PELVIS: 1. Possible soft tissue density area in the head of the pancreas. Mass is not excluded. 2. Fluid in the left paracolic gutter. 3. Destructive changes in the spine at the level of L4-L5 which may be inflamm a
--- NOTE | ~2024-08-28 | CT_ITS ---
EXAMINATION: CT brain wo con DATE: 08/30/2024 04:29 INDICATION: Sudden lethargy. TECHNIQUE: Computed tomography (CT) of the head was performed without intravenous contrast. The mA wa s adjusted according to patient size. Iterative reconstruction technique was employed. The dose-lengt h product was 1362.00 mGy-cm. COMPARISON: None FINDINGS: There is no intracranial hemorrhage, acute infarction, or abnormal intracranial mass lesion . The ventricles are normal in size. The paranasal sinuses are clear. There was no normal. The mastoi d air cells are normal. IMPRESSION: 1. Normal brain. Reviewed, dictated and finalized at location A. IMPRESSION: 1. Normal brain.
--- NOTE | ~2024-08-28 | US_ITS ---
EXAMINATION: US abdomen limited DATE: 08/29/2024 13:11 INDICATION: Abnormal liver function tests. TECHNIQUE: Multiple grayscale and Doppler ultrasound images of the abdomen were obtained. COMPARISON: CT 08/28/2024 FINDINGS: The visualized portions of the head of the pancreas are normal. The liver is normal without focal lesion. There is antegrade pulsatile flow in main portal vein. The gallbladder is absent. The common duct is normal and measures 6 mm. There is a small right pleural effusion. IMPRESSION: 1. Small right pleural effusion. Reviewed, dictated and finalized at location A.
--- NOTE | ~2024-08-28 | XR_ITS ---
XR chest 1V portable Ordering provider: Jennifer Kaur MD History: 64 years Male with . weakness . Comparison: February 08, 2024 FINDINGS: MEDIASTINUM: The cardiac silhouette is slightly enlarged. Congestive tuan. LUNGS: No infiltrates, effusions or pneumothorax. Opacity seen in the right mid zone which may be loc ulated fluid versus a nodule versus atelectasis. Small opacity also seen in the left upper lobe area may indicate focal pneumonia or nodules. Follow-up advised. OTHER: No free air under the diaphragm. Degenerative changes of the spine. IMPRESSION: Opacity in the right midzone which may be a nodule versus loculated fluid in the transverse fissure v ersus focal atelectatic changes. CT evaluation advised. Possible nodule in the left upper lobe. Reviewed, dictated and finalized at location A. IMPRESSION: Opacity in the right midzone which may be a nodule versus loculated fluid in th e transverse fissure versus focal atelectatic changes. CT evaluation advised. Possible nodule in the left upper lobe.
--- NOTE | ~2024-08-28 | US_ITS ---
EXAMINATION: US renal BI DATE: 08/29/2024 09:25 INDICATION: Acute renal failure. TECHNIQUE: Multiple ultrasound grayscale images of the kidneys were obtained. COMPARISON: CT 08/28/2024 FINDINGS: The right kidney measures 12.6 x 5.3 x 5.2 cm. The left kidney measures 10.8 x 6.7 x 5.9 cm. The kidn eys demonstrate normal parenchymal echogenicity. There is no hydronephrosis. The bladder is not visua lized. IMPRESSION: 1. Normal kidneys. No hydronephrosis. Reviewed, dictated and finalized at location A.
--- NOTE | 2024-08-28 17:11 | ECG_ITS ---
Test Date: 2024-08-28 17:36:02 Measurements Intervals [place] Rate: 118 P: 174 ME: 220 QRS: 63 QRSD: 82 T: 0 QT: 323 QTc: 453 Interpretive Statements NARROW COMPLEX TACHYCARDIA LOW QRS VOLTAGE IN EXTREMITY LEADS [QRS DEFLECTION < 0.5 mV IN LIMB LEADS] SEPTAL MYOCARDIAL INFARCTION , PROBABLY OLD [40+ ms Q WAVE IN V1/V2] No previous ECG available for comparison Electronically Signed On 08-29-2024 08:28:21 CDT by Niki Saab M.D.
[2024-08-28 17:37] LABS: Basophils Percent Auto 0.3 % (0.2-1.2); Eosinophils Percent Auto 0.1 % (0-4.4); Hematocrit 31.6 % (42.0-52.0); Hemoglobin 9.9 g/dL (14.0-18.0); Immature Granulocyte Absolute 0.08 K/mm3 (0.00-0.031); Immature Granulocyte Percent A 0.9 % (0-0.5); Lymphocytes Absolute Auto 0.58 K/mm3 (0.9-3.2); Lymphocytes Percent Auto 6.2 % (18.3-44.2); Mean Corpuscular HGB Conc 31.3 g/dl (32-36); Mean Corpuscular Hemoglobin 28.9 pg (26-34); Mean Corpuscular Volume 92.4 fl (80-100); Mean Platelet Volume 9.6 fl (7.4-10.4); Monocytes Absolute Auto 0.6 K/mm3 (0.1-0.6); Monocytes Percent Auto 6.7 % (2.6-8.5); Neutrophils Percent Auto 85.8 % (45.5-73.1); Platelet Count Result 305 k/mm3 (150-375); Red Blood Count 3.42 M/mm3 (4.6-6.20); Red Cell Distribution Width 14.2 % (11.5-14.5); White Blood Count 9.3 K/mm3 (4.5-10.0)
[2024-08-28 17:46] LABS: Alanine Aminotransferase 20 U/L (6-50); Albumin Level 3.9 g/dL (3.5-5.1); Alkaline Phosphatase 162 U/L (38-126); Anion Gap 20 mmol/L (4-12); Aspartate Amino Transferase 26 U/L (17-59); Bilirubin,Total 0.7 mg/dL (0.2-1.3); Blood Urea Nitrogen 107 mg/dL (9-20); Calcium 8.5 mg/dL (8.4-10.2); Carbon Dioxide 16 mmol/L (22-30); Chloride 96 mmol/L (98-107); Estimated Glomerular Filt Rate 12; Glucose 242 mg/dL (65-110); Potassium 5.2 mmol/L (3.4-5.0); Sodium 132 mmol/L (137-145)
--- NOTE | 2024-08-28 18:39 | ED.GENADULT ---
HPI - General Adult General Chief complaint: Weakness <Lise Deleon PA-C - Last Filed: 08/28/24 22:45> Stated complaint: weakness, back pain <Lise Deleon PA-C - Last Filed: 08/28/24 22:45> Time Seen by Provider: 08/28/24 17:37 <Lise Deleon PA-C - Last Filed: 08/28/24 22:45> Source: patient and old records reviewed <YONY Flanagan Last Filed: 08/28/24 22:45> Mode of arrival: EMS <YONY Flanagan Last Filed: 08/28/24 22:45> Limitations: no limitations <YONY Flanagan Last Filed: 08/28/24 22:45> History of Present Illness HPI narrative: Patient is a 64-year-old male, with PMH of CKD (Hx of dialysis), AFIB on Eliquis, DM, CHF, PVD, L BKA, who presents the ED via EMS with report of lower back pain and weakness. Patient reports history of chronic lower back pain. Was recently hospitalized for lumbar discitis. Has since finished a 6 week course of IV antibiotics through a right upper extremity PICC line. States he had the PICC line removed by a home health care nurse today. Reports pain throughout his lower back has been worsening over the last several days, to the point that he is having trouble ambulating or performing ADLs at home due to the pain. Pain does radiate into legs. He is prescribed [place], but states this does not improve his pain. Today, he was unable to even get to the bathroom which prompted him to contact EMS. He does also report that his abdomen has been bloating and swelling over the last 1 week. He denies history of this. He states his abdomen feels very tight, but otherwise denies significant pain. Denies nausea, vomiting, diarrhea, constipation, saddle anesthesia, bowel or bladder incontinence, fevers, SOB. Patient had previously been on dialysis, but states he was taken off of dialysis several weeks ago due to his kidney function normalizing. His dialysis catheter was removed while he was hospitalized for the discitis. Sees Dr. Slaughter. He is still making urine, but states it has been decreasing in quantity. <Lise Deleon PA-C - Last Filed: 08/28/24 22:45> Related Data Home medications: Home Medications Medication Instructions Recorded Confirmed Saccharomyces boulardii 250 mg 250 mg PO DAILY PRN Constipation 01/28/24 07/27/24 capsule (Daily Probiotic (S. boulardii)) allopurinol 100 mg tablet 100 mg PO DAILY 01/28/24 07/28/24 apixaban 5 mg tablet (Eliquis) 5 mg PO BID 01/28/24 07/27/24 ascorbic acid (vitamin C) 500 mg 500 mg PO DAILY 01/28/24 07/28/24 tablet (Vitamin C) cholecalciferol (vitamin D3) 125 125 mcg PO DAILY 01/28/24 07/27/24 mcg (5,000 unit) tablet docusate sodium 100 mg capsule 100 mg PO BID PRN Constipation 01/28/24 07/28/24 duloxetine 30 mg capsule,delayed 30 mg PO DAILY 01/28/24 07/28/24 release ferrous sulfate 325 mg (65 mg 325 mg PO DAILY 01/28/24 07/27/24 iron) tablet (FeroSul) insulin glargine 100 unit/mL 18 unit subcut HS 01/28/24 07/27/24 subcutaneous solution magnesium oxide 400 mg (241.3 mg 400 mg PO BID 01/28/24 07/27/24 magnesium) tablet multivitamin with minerals 1 tablet PO DAILY 01/28/24 07/27/24 (Multiple Vitamin-Minerals tablet) omeprazole 20 mg capsule,delayed 40 mg PO DAILY PRN Heartburn 01/28/24 07/27/24 release tamsulosin 0.4 mg capsule 0.4 mg PO DAILY 01/28/24 07/27/24 hydralazine 50 mg tablet 50 mg PO TID 07/27/24 07/27/24 insulin lispro 100 unit/mL 5 unit subcut AC 07/27/24 07/28/24 subcutaneous solution metoprolol succinate 50 mg 50 mg PO BID 07/27/24 07/27/24 tablet,extended release 24 hr furosemide 40 mg tablet 40 mg PO DAILY 07/28/24 07/28/24 <Lise Deleon PA-C - Last Filed: 08/28/24 22:45> Allergies/adverse reactions: Allergies Allergy/AdvReac Type Severity Reaction Status Date / Time clopidogrel Allergy Unknown Other Verified 06/29/24 11:10 pregabalin Allergy Unknown Other Verified 06/29/24 11
[2024-08-28 18:57] LABS: CRP 6.9 mg/dL (<1.0); Lipase 68 U/L (23-300); Magnesium 3.3 mg/dL (1.6-2.3)
[2024-08-28 19:04] LABS: NT Pro B Type Natriuretic Pept 5380 pg/mL (19.9-100)
[2024-08-28] MEDS: MORPHINE SULFATE (*CRX) 4 MG/ML INJ IV PUSH ×2 (19:10→23:27)
[2024-08-28] MEDS: ONDANSETRON INJ 4 MG/2 ML VIAL IV PUSH (19:10)
[2024-08-28 19:11] LABS: Erythrocyte Sedimentation Rate 70 mm/hr (0-20)
--- NOTE | 2024-08-28 19:18 | PC.NURSE ---
Report received from Charlotte SIMMONS. Assumed care of patient at this time.
[2024-08-28 19:47] LABS: Alveolar/Arterial O2 Gradient 29.8 mmHg; Base Excess ABG -8.1 mEq/l (+/-2.0); Carboxyhemoglobin 1.2 % THb (0-2.0); Fractional Inspired Oxygen 21 %; HCO3 ABG 17.5 mEq/l (22.0-26.0); Methemoglobin ABG 0.3 %THb (0-1.5); Oxygen Content ABG 14.7 %vol (16.0-22.0); Oxygen Saturation ABG 94.3 % (95.0-100.0); Oxyhemoglobin 92.7 % THb (90.0-100.0); PCO2 ABG 35.9 mmHg (35.0-45.0); PO2 ABG 76.9 mmHg (80.0-100.0); PO2 FiO2 Ratio Arterial Blood 3.66 %; Reduced Hemoglobin 5.8 %THb (0-5.0); Total Hemoglobin 11.2 g/dL (12.0-18.0); pH ABG 7.305 (7.350-7.450)
[2024-08-28 19:48] LABS: Modified Allen's Test Pass; Site Drawn RIGHT RADIAL
[2024-08-28 19:49] LABS: Device ROOM AIR
[2024-08-28 20:51] LABS: Lactic Acid Reflex 1.7 mmol/L (0.7-2.0)
[2024-08-28 20:54] LABS: Add Urine Microscopic? YES; Appearance Urine Cloudy (Clear); Bacteria Urine 4+ /hpf; Bilirubin Urine Negative (Negative); Blood Urine Negative (Negative); Color Urine Yellow (Yellow); Glucose Urine UA 2+ mg/dL (Negative); Ketones Urine Trace mg/dL (Negative); Leukocyte Esterase Ur 2+ LEU/UL (Negative); Need Manual Microscopic Reviewed; Nitrate Urine Negative (Negative); Protein Urine 1+ mg/dL (Negative); RBC Urine 0-2 /hpf (0-2); Specific Grav Ur 1.017 (1.001-1.035); Squamous Epithelial Cell Urine None Seen /hpf (Few); Urobilinogen Urine 0.2 mg/dL (<2.0)
[2024-08-28 21:09] LABS: Beta-Hydroxybutyrate/Acetoacetate 3.44 mmol/L (0.02-0.27)
[2024-08-28 21:09] LABS: Creatinine Urine 141.7 mg/dL
[2024-08-28 21:10] LABS: Sodium Urine Random 9 meq/L
[2024-08-28] MEDS: SODIUM CHLORIDE 0.9% IV 500 ML 999 ML IV CONT (21:11)
[2024-08-28 21:14] LABS: Creatine Kinase 59 U/L (55-170)
[2024-08-28 23:05] LABS: Glucose Point of Care 233 mg/dl (65-105)
[2024-08-28] MEDS: SODIUM CHLORIDE 0.9% IV 1,000 ML 100 ML IV CONT (23:40)
[2024-08-29] VITALS (100 sets, daily range): BP systolic 64–157; BP diastolic 26–133; PULSE 93–154; RESP 6–21; TEMP 36–37.6; O2SAT 96–100
--- NOTE | 2024-08-29 | ECHO_ITS ---
Patient Info Name: Thang Zamora Age: 64 years : 1960 Gender: Male Ht: 70 in Wt: 291 lbs BSA: 2.61 m2 HR: 110 bpm BP: 103 / 64 mmHg Heart Rhythm: Indeterminant Technical Quality: Poor Exam Date: 08/29/2024 8:45 AM Exam Location: Echo Lab Patient Status: Inpatient Admit Date: 08/29/2024 Staff Ordering Physician: Esther Peña MD Maid Housekeeper: Elvi Samuels RDCS Attending Provider: Esther Peña MD Exam Type: CA echo dop color flow w con Study Info Indications - PERICARDIAL EFFUSION Complete two-dimensional, color flow and Doppler transthoracic echocardiogram is performed with contrast to opacify the left ventricle and to improve the deliniation of the left ventricle endocardial borders. Reason for Poor Study: poor echocardiographic windows Summary 1. Left ventricular systolic function is normal, estimated at 50-55%. 2. There is moderately increased left ventricular wall thickness. 3. The left ventricular diastolic function is abnormal. 4. Left atrial chamber dimension is mildly enlarged. 5. There is mild aortic valve stenosis with a peak velocity of 136.24 cm/s, mean gradient of 5 mmHg, and aortic valve area of 1.87 cm2. There is 1 x 0.7 cm mass attached to the aortic valve. Differential includes vegetation, fibroelastoma. 6. There is trace tricuspid valve regurgitation. 7. Mild pulmonary hypertension, estimated pulmonary arterial systolic pressure is 45 mmHg. 8. There is moderate pericardial effusion. IVC dilated without collapse. No evidence of RV collapse. Left Ventricle Left ventricular chamber dimension is normal. Left ventricular systolic function is normal, estimated at 50-55%. There is moderately increased left ventricular wall thickness. Left ventricular septal wall motion is normal. The left ventricular diastolic function is abnormal. Right Ventricle Right ventricular chamber dimension is normal. Right ventricular systolic function is normal. Left Atria Left atrial chamber dimension is mildly enlarged. Right Atria Right atrial chamber dimension is normal. Atrial Septum Intact interatrial septum visualized by 2D imaging. Aortic Valve The aortic valve is trileaflet. There is mild aortic valve sclerosis. There is mild aortic valve stenosis with a peak velocity of 136.24 cm/s, mean gradient of 5 mmHg, and aortic valve area of 1.87 cm2. There is 1 x 0.7 cm mass attached to the aortic valve. Differential includes vegetation, fibroelastoma. There is no aortic valve regurgitation. Pulmonic Valve The pulmonic valve is normal. There is no pulmonic valve stenosis. There is no pulmonic regurgitation. Mitral Valve The mitral valve has normal leaflets. There is no mitral valve stenosis. There is no mitral valve regurgitation. Tricuspid Valve The tricuspid valve leaflets are normal. There is no significant tricuspid valve stenosis. There is trace tricuspid valve regurgitation. Mild pulmonary hypertension, estimated pulmonary arterial systolic pressure is 45 mmHg. Pericardium/Pleural There is moderate pericardial effusion. IVC dilated without collapse. No evidence of RV collapse. Inferior Vena Cava Dilated inferior vena cava with <50% collapse upon inspiration consistent with elevated right atrial pressure, 15 mmHg. Aorta The aortic root size at the sinus of Valsalva is normal. The prox ascending aorta size is normal. Left Ventricular Outflow Tract Name Value Normal
--- NOTE | 2024-08-29 01:17 | PM.IMHP ---
H&P: HPI History of Present Illness Date/Time: 08/29/24 01:17 Chief Complaint: Weakness Narrative: 64-year-old male with the history of obesity, CKD, recent history of dialysis, history of diskitis recently status post 6 week course IV antibiotics, AFib on Eliquis, type 2 diabetes mellitus with current long-term use of insulin, CHF, PVD, left BKA. He presents with complaint of weakness and chronic lower back pain. He reports this combination of symptoms has caused debility. He also reports he has retained fluid in his abdomen. He reports decreased frequency of urination, darker yellow urine, mild pain when urinating in the past few days intermittently. ER workup demonstrated blood pressure 99/85, then 123/84. Mild sinus tachycardia in the 110s. Hemoglobin 9.9 around his baseline, serum creatinine 5, BUN 107, sodium 132, potassium 5.2, lactic acid 1.7, magnesium 3.3, urinalysis 2+ leukocyte esterase, 11-20 WBC, 4+ bacteria. CT chest abdomen pelvis spine without IV contrast. CHEST: 1. Moderate Pericardial effusion. 2. Possible pneumonia in the left upper lobe. 3. Bilateral pleural effusion with adjacent atelectasis. 4. Nodule in the middle lobe measuring 9 mm millimeters. 3 months follow-up CT advised. ABDOMEN/PELVIS: 1. Possible soft tissue density area in the head of the pancreas. Mass is not excluded. 2. Fluid in the left paracolic gutter. 3. Destructive changes in the spine at the level of L4-L5 which may be inflammatory or degenerative. MRI evaluation is advised. Review of Systems Review of Systems: All systems reviewed & are unremarkable except as noted in HPI and below (Subjective) [facility], [facility] Past Medical History Medical History Chronic kidney disease Coronary artery disease Deep venous thrombosis Depression Heart failure of unknown type Hypertension Obstructive sleep apnea Does not use CPAP. Paroxysmal atrial fibrillation Peripheral vascular disease Type 2 diabetes mellitus Surgical History Surgical History History of amputation of toe History of cardiac catheterization History of cholecystectomy History of coronary artery stent placement History of left below knee amputation Family History Family History Father Rectal cancer Other Cerebrovascular accident Depression Diabetes mellitus Family history of alcoholism Family history of malignant neoplasm of gastrointestinal tract Family history of mental disorder Hypertension Social History Social History Social History: Surrogate medical decision maker: Rodríguez Zamora, sibling. Code status: Full code. Smoking status: Never smoker Second hand tobacco smoke exposure: No Alcohol intake: never Drinks per week: 12 Substance use: never Substance use type: does not use Last use: 2021 Do You Feel Safe in your Home?: Yes Lack of Transportation: No Lack of Food: Sometimes True Current Housing: I Have Housing Concerned About Future Housing: No Difficulty Paying Gas/Electric Bills: YES Difficulty Paying for Meds: YES Currently Unemployed: No Education: High School Diploma/GED Difficulty w/ Childcare or Family Care: No Gender identity (if verbalized by the patient): Male Spiritual care concerns: No Meds Home Medications and Allergies Home Medications Medication Instructions Recorded Confirmed Type Saccharomyces boulardii 250 mg 250 mg PO DAILY PRN Constipation 01/28/24 07/27/24 History capsule (Daily Probiotic (S. boulardii)) allopurinol 100 mg tablet 100 mg PO DAILY 01/28/24 07/28/24 History apixaban 5 mg tablet (Eliquis) 5 mg PO BID 01/28/24 07/27/24 History ascorbic acid (vitamin C) 500 mg 500 mg PO DAILY 01/28/24 07/28/24 History tablet (
[2024-08-29] MEDS: AMPICILLIN 1 GM/NS 50 ML 1 GM/50 ML BAG IVPB ×2 (03:13→21:45)
[2024-08-29 06:05] LABS: Hematocrit 34.4 % (42.0-52.0); Hemoglobin 10.4 g/dL (14.0-18.0); Mean Corpuscular HGB Conc 30.2 g/dl (32-36); Mean Corpuscular Hemoglobin 28.2 pg (26-34); Mean Corpuscular Volume 93.2 fl (80-100); Platelet Count Result 340 k/mm3 (150-375); Red Blood Count 3.69 M/mm3 (4.6-6.20); Red Cell Distribution Width 14.1 % (11.5-14.5); White Blood Count 7.7 K/mm3 (4.5-10.0)
[2024-08-29 06:20] LABS: Alanine Aminotransferase 269 U/L (6-50); Albumin Level 3.8 g/dL (3.5-5.1); Alkaline Phosphatase 203 U/L (38-126); Anion Gap 18 mmol/L (4-12); Aspartate Amino Transferase 401 U/L (17-59); Bilirubin,Total 0.8 mg/dL (0.2-1.3); Blood Urea Nitrogen 110 mg/dL (9-20); Calcium 8.3 mg/dL (8.4-10.2); Carbon Dioxide 16 mmol/L (22-30); Chloride 96 mmol/L (98-107); Estimated CRCL calculation 18 ml/min; Estimated Glomerular Filt Rate 11; Glucose 214 mg/dL (65-110); Magnesium 3.4 mg/dL (1.6-2.3); Phosphorus 7.5 mg/dL (2.5-4.5); Potassium 5.5 mmol/L (3.4-5.0); Sodium 130 mmol/L (137-145)
[2024-08-29] MEDS: HYDROcodone/acetaminophen (*CRX) 5-325 MG TABLET 1 TAB PO (08:08)
[2024-08-29] MEDS: ONDANSETRON INJ 4 MG/2 ML VIAL IV PUSH ×3 (08:09→23:52)
[2024-08-29 08:34] LABS: Glucose Point of Care 213 mg/dl (65-105)
[2024-08-29] MEDS: PERFLUTREN LIPID MICROSPHERES 1.5 ML VIAL DILUTED TO 10 ML TOTAL VOLUME IV PUSH (08:40)
[2024-08-29] MEDS: INSULIN ASPART (*BKC) 100 UNITS/ML SUB-Q (09:14)
--- NOTE | 2024-08-29 09:15 | IVDEFINITY ---
Prior to administration of IV Definity the patient was educated on the risks and benefits of the imaging enhancing agent including potential adverse side effects. The patient verbalized understanding. Allergies were verified. No exclusion criteria were identified and at least one of the following inclusion criteria were met: 1) physician request, 2) patient technically difficult to image (per the [place] [employer] guidelines of two or more segments not discernable within the apical view), or 3) questionable left ventricular function. ?
[2024-08-29] MEDS: SODIUM BICARBONATE 8.4% 50 MEQ/50 ML SYRINGE IV PUSH (10:19)
[2024-08-29 10:30] LABS: Basophils Percent Auto 0.2 % (0.2-1.2); Eosinophils Percent Auto 0.2 % (0-4.4); Hematocrit 30.3 % (42.0-52.0); Hemoglobin 9.7 g/dL (14.0-18.0); Immature Granulocyte Absolute 0.27 K/mm3 (0.00-0.031); Immature Granulocyte Percent A 2.2 % (0-0.5); Lymphocytes Absolute Auto 0.67 K/mm3 (0.9-3.2); Lymphocytes Percent Auto 5.6 % (18.3-44.2); Mean Corpuscular Hemoglobin 29.3 pg (26-34); Mean Corpuscular Volume 91.5 fl (80-100); Mean Platelet Volume 9.8 fl (7.4-10.4); Monocytes Absolute Auto 1.3 K/mm3 (0.1-0.6); Monocytes Percent Auto 10.4 % (2.6-8.5); Neutrophils Absolute Auto 9.8 K/mm3 (1.3-6.7); Neutrophils Percent Auto 81.4 % (45.5-73.1); Platelet Count Result 309 k/mm3 (150-375); Red Blood Count 3.31 M/mm3 (4.6-6.20); Red Cell Distribution Width 14.3 % (11.5-14.5); White Blood Count 12.1 K/mm3 (4.5-10.0)
--- NOTE | 2024-08-29 10:43 | WPDCNINT ---
Assessment and Plan Assessment and plan (1) Hypotension: Code(s): I95.9 - Hypotension, unspecified Status: Acute Assessment and Plan: Patient blood pressure was adequate in the ER and had normal lactic acid level. Patient became hypotensive on the floor. He received 1 L fluid bolus with response and improvement in blood pressure. Will give additional 500 mL 5% albumin Antibiotics as below Echo ordered and pending May need vasopressors Transferred to ICU (2) Type 2 diabetes mellitus without complications: Code(s): E11.9 - Type 2 diabetes mellitus without complications Status: Acute Assessment and Plan: Sliding scale insulin (3) UTI (urinary tract infection): Qualifiers: Hematuria presence: without hematuria Urinary tract infection type: acute cystitis Qualified Code(s): N30.00 - Acute cystitis without hematuria Code(s): N39.0 - Urinary tract infection, site not specified Status: Acute Assessment and Plan: UA suggestive of UTI Blood and urine cultures have been sent Continue Rocephin and ampicillin due to history of Enterococcus in the urine (4) Acute renal failure superimposed on chronic kidney disease: Code(s): N17.9 - Acute kidney failure, unspecified; N18.9 - Chronic kidney disease, unspecified Status: Acute Assessment and Plan: Patient has chronic kidney disease and developed acute renal failure requiring dialysis for 4 months. Now off for last 8 weeks. Now presented with creatinine that is worsened. This could be secondary to intravascular hypovolemia as patient states that he has had poor p.o. intake for few days. Getting IV fluids May need resumption of dialysis Treatment of hyperkalemia Consult nephrology Monitor urine output electrolytes and creatinine (5) Pericardial effusion: Code(s): I31.39 - Other pericardial effusion (noninflammatory) Status: Acute Assessment and Plan: CT scan shows moderate pericardial effusion Echocardiogram done and report pending (6) Hyperkalemia: Code(s): E87.5 - Hyperkalemia Status: Acute Assessment and Plan: Secondary to BILLIE on CKD Patient received IV fluid bolus Repeat BMP has been sent and is pending. Will order Lokelma Additional treatment depending on BMP results (7) Discitis of lumbar region: Code(s): M46.46 - Discitis, unspecified, lumbar region Status: Acute Assessment and Plan: Patient was recently treated for diskitis of L4-L5. He had percutaneous aspiration and was treated with antibiotics for 6 weeks Repeat MRIs ordered (8) Elevated liver enzymes: Code(s): R74.8 - Abnormal levels of other serum enzymes Status: Acute Assessment and Plan: Elevated AST and ALT likely secondary to shock liver. CT scan does not show any significant abnormality. Monitor LFTs and check right upper quadrant ultrasound Plan DVT prophylaxis -SCDs. Anticoagulation held due to anticipated procedures Stress ulcer prophylaxis -PPI Nutrition - npo Code Status - Full Code. He patient's his brother to be decision maker on his behalf he can not make kit himself. He is not and his daughter has cerebral palsy Total Critical Care Time - 40 minutes Due to a high probability of clinically significant, life threatening deterioration, the patient required my highest level of preparedness to intervene emergently and I personally spent this critical care time directly and personally managing the patient. This critical care time included obtaining a history; examining the patient; pulse oximetry; ordering and review of studies; arranging urgent treatment with development of a management plan; evaluation of patient's response to treatment; frequent reassessment; and discussions with other providers. It was exclusive of separately billable procedures and treating other patients and teaching time. Please see Assessment and Plan section and the
--- NOTE | 2024-08-29 10:44 | PM.IMPN ---
Progress Note: A&P Assessment and Plan (1) Acute renal failure: Qualifiers: Acute renal failure type: unspecified Qualified Code(s): N17.9 - Acute kidney failure, unspecified Code(s): N17.9 - Acute kidney failure, unspecified Status: Acute Assessment and Plan: Acute kidney injury and CKD. Nephrology consulted from ER. Received 2.5 L normal saline bolus. Was then placed on 100 cc normal saline. Given a fluid bolus 1 liter for low blood pressure. Renal ultrasound pending. NPO (2) Hyperkalemia: Code(s): E87.5 - Hyperkalemia Status: Acute Assessment and Plan: Potassium 5.2. Monitor labs. (3) Dehydration: Code(s): E86.0 - Dehydration Status: Acute Assessment and Plan: Received 2.5 L normal saline bolus. Was then placed on 100 cc normal saline. Given a fluid bolus 1 liter for low blood pressure. Monitor labs. (4) Hypotension: Code(s): I95.9 - Hypotension, unspecified Status: Acute Assessment and Plan: Blood pressure was 69/48 patient given a liter bolus with improvement of blood pressure to 90/65. Transfer to ICU bed 6 for close monitoring. (5) Acute on chronic low back pain: Code(s): M54.50 - Low back pain, unspecified; G89.29 - Other chronic pain Status: Acute Assessment and Plan: Patient has had diskitis recently. He is unable to clearly delineate his pain is any worse. Destructive changes seen at the L4-L5. MRI lumbar spine (6) Weakness: Code(s): R53.1 - Weakness Status: Acute Assessment and Plan: Continue IV fluids Monitor vital signs. (7) Pericardial effusion: Code(s): I31.39 - Other pericardial effusion (noninflammatory) Status: Acute Assessment and Plan: surface echocardiogram which will give a better look. (8) UTI (urinary tract infection): Qualifiers: Hematuria presence: without hematuria Urinary tract infection type: acute cystitis Qualified Code(s): N30.00 - Acute cystitis without hematuria Code(s): N39.0 - Urinary tract infection, site not specified Status: Acute Assessment and Plan: Ampicillin 1 g q.day, previously grew Enterococcus sensitive to ampicillin vancomycin and nitrofurantoin. Nitrofurantoin and vancomycin contraindicated. Ceftriaxone 1 g q.day to cover other pathogens. Follow urine culture. Plan Transfer to ICU bed 6 for close monitoring. Subjective Date/time seen: 08/29/24 10:35 Interval history: Patient reports nausea with vomiting of water when I went to see him this morning. Nurse reported a blood pressure of 82/64 prior to my coming to the floor. Recheck of blood pressure was 69/48 patient given a liter bolus with improvement of blood pressure to 90/65. Patient was given sodium bicarbonate 50 meq iv x1 for a bicarb on 17.5. CBC, CMP, and Mg+ sent. Patient reported that back pain is an 8 , constant, and aching with pain down right leg greater than left. Patient reports a headache that is a 5 , constant, and throbbing. Patient denied dizziness or shortness of breath. Discussed patient with Dr. Villela and patient to be transferred to ICU bed 6. Review of Systems Review of Systems: All systems reviewed & are unremarkable except as noted in HPI and below Exam Const: General: uncomfortable Resp: Other: few crackles RLL, otherwise clear. Cardio: Rate: regular rate Rhythm: regular rhythm Heart sounds: no murmurs GI: GI Palp: No Tenderness to palpation present (GI) Auscultation: normal bowel sounds Other: Morbidly obese Skin: Other: chronic venous stasis bilateral legs. Neuro: Speech: normal speech Extrem: General: edema (trace RLE) Other: Left BKA Psych: Affect: normal affect Objective Data Vital Signs Vital Signs: Vital Signs - 24 hr 08/28/24 17:11 08/28/24 17:36 08/28/24 19:15 Temperature 97.6 F Pulse Rate 123 H 1
[2024-08-29] MEDS: ALBUMIN HUMAN 5% 25 GM/500 ML BTL IV CONT (11:01)
[2024-08-29] MEDS: SODIUM ZIRCONIUM CYCLOSILICATE 10 GM POWD.PACK PO ×2 (11:09→18:07)
--- NOTE | 2024-08-29 11:09 | PC.NURSE ---
This patient, Thang Zamora, was transferred to ICU 6 on 08/29/24 at 1045. Personal belongings sent with patient. Report given to TROY Lopez. Appropriate documentation sent with patient. Patient's brother, Rodríguez, notified of transfer.
[2024-08-29] MEDS: SODIUM CHLORIDE 0.9% IV 1,000 ML 100 ML IV CONT (11:15)
[2024-08-29 11:21] LABS: Albumin Level 3.6 g/dL (3.5-5.1); Alkaline Phosphatase 178 U/L (38-126); Anion Gap 18 mmol/L (4-12); Bilirubin,Total 0.8 mg/dL (0.2-1.3); Blood Urea Nitrogen 113 mg/dL (9-20); Calcium 8.1 mg/dL (8.4-10.2); Carbon Dioxide 18 mmol/L (22-30); Chloride 95 mmol/L (98-107); Estimated CRCL calculation 18 ml/min; Estimated Glomerular Filt Rate 11; Glucose 192 mg/dL (65-110); Magnesium 3.3 mg/dL (1.6-2.3); Potassium 5.2 mmol/L (3.4-5.0); Sodium 131 mmol/L (137-145)
[2024-08-29] MEDS: PANTOPRAZOLE SODIUM IV 40 MG VIAL IV PUSH (11:22)
[2024-08-29 11:34] LABS: Alanine Aminotransferase 910 U/L (6-50); Aspartate Amino Transferase 1365 U/L (17-59)
[2024-08-29 11:36] LABS: Glucose Point of Care 192 mg/dl (65-105)
[2024-08-29] MEDS: DEXTROSE 50% 25 GM/50 ML SYRINGE IV PUSH (12:01)
[2024-08-29] MEDS: INSULIN HUMAN REGULAR (*BKC) 100 UNITS/ML 10 UNITS IV PUSH (12:05)
[2024-08-29 12:17] LABS: Glucose Point of Care 294 mg/dl (65-105)
[2024-08-29] MEDS: SODIUM BICARBONATE 8.4% 150 MEQ in WATER, STERILE FOR INJECTION 950 ML 100 MEQ IV CONT (12:51)
[2024-08-29 13:45] LABS: MRSA (PCR) DETECTED (NOT DETECTE)
[2024-08-29] MEDS: NOREPINEPHRINE 8 MG/D5W 250 ML 8 MG/250 ML BAG 9.38 MG IV CONT (14:45)
--- NOTE | 2024-08-29 14:46 | WPDPROCEDUR ---
Procedures Central Line Placement Right Femoral: Central Line Date: 08/29/24 Central Line Time: 14:00 Discussed w/ the patient/family/POA,the placement of a central venous catheter, including its clinical necessity/indication & associated potential risks, benifits and alternatives.: Yes The patient/family/POA understand(s) and acknowledge(s) the need to proceed with central venous catheter insertion as an important element of the patient's clinical management.: Yes Consent: I have discussed with the patient the non-emergent placement of a central temporary dialysis catheter with a 3rd central venous port, including its clinical necessity/indication and associated potential risks and complications. The patient understand(s) and acknowledge(s) the need to proceed with it as an important element of the patient's clinical management. Time Out Performed: Yes Patient Position: supine Patient placed on monitor/pulse ox: Yes Provider Prep: mask, sterile gown, sterile gloves, Max. sterile barrier precautions, cap and hand hygiene with conventional soap/water or alcohol based hand rub Central line prep: Povidone-Iodine 1% Local anesthesia used: lidocaine 1% Amount of anesthesia used (ml): 5 Sterile US Technique with sterile gel/sterile probe covers: Yes Central line lumen inserted: triple Length (cm): 20 Depth of Insertion (cm): 20 Post Procedure: sutured in place, good blood return, all ports aspirated, flushed, capped, transparent dressing and aseptic technique maintained throughout procedure Patient tolerated procedure: well Complications: none
--- NOTE | 2024-08-29 15:04 | PM.CNNEP ---
Assessment and Plan Assessment and plan (1) Acute renal failure: Qualifiers: Acute renal failure type: unspecified Qualified Code(s): N17.9 - Acute kidney failure, unspecified Code(s): N17.9 - Acute kidney failure, unspecified Status: Acute Assessment and Plan: The patient has chronic kidney disease. This was going on for a long time before this but ended up with stage 4 chronic kidney disease after recovering from dialysis. Now the patient has acute kidney injury. His creatinine was apparently good after his episode of diskitis. He did receive antibiotics for a long time. This worsened creatinine could be just the kidneys wearing out or it could be an allergic interstitial nephritis (however he has no rash). He also was hypotensive and has white cells in the urine so could have an infection ATN. In addition the patient has a mass attach the aortic valve noted on his echocardiogram. Will see what Cardiology says about that. There are other causes of acute kidney injury as well including obstruction, stones, infection, glomerulonephritis. At this point I am going to go ahead and start dialysis. He is volume overloaded now by chest x-ray and by exam so giving fluid isn't going to help his kidneys it will just make the fluid worse. His BUN creatinine are quite high and his numbers are worse so will go ahead and do a dialysis and then reassess Saturday to see if he needs more. Will continue to treat his hypotension and also give antibiotics. He is getting a Hendrix catheter placed to eliminate urinary flow as a cause of kidney disease and to follow his urine output closely. Will check a differential on his CBC tomorrow. I hesitate to give steroids empirically because of his potential for infection and just recent diskitis. My level of suspicion for interstitial nephritis is not very high. (2) Discitis of lumbar region: Code(s): M46.46 - Discitis, unspecified, lumbar region Status: Acute Assessment and Plan: He received antibiotics for this (3) Type 2 diabetes mellitus without complications: Code(s): E11.9 - Type 2 diabetes mellitus without complications Status: Acute Assessment and Plan: He is on Accu-Cheks and sliding scale insulin per hospitalist. (4) BPH (benign prostatic hyperplasia): Code(s): N40.0 - Benign prostatic hyperplasia without lower urinary tract symptoms Status: Acute Assessment and Plan: He is getting a Hendrix catheter (5) Essential (primary) hypertension: Code(s): I10 - Essential (primary) hypertension Status: Acute Assessment and Plan: Blood pressure is on the low side. Antihypertensives are held. (6) CHF (congestive heart failure): Code(s): I50.9 - Heart failure, unspecified Status: Acute Assessment and Plan: The patient had an echocardiogram which shows good LV systolic function but some diastolic dysfunction. (7) UTI (urinary tract infection): Qualifiers: Hematuria presence: without hematuria Urinary tract infection type: acute cystitis Qualified Code(s): N30.00 - Acute cystitis without hematuria Code(s): N39.0 - Urinary tract infection, site not specified Status: Acute Assessment and Plan: He has white cells in the urine. Cultures are pending and he is on empiric antibiotics. (8) Coronary artery disease: Code(s): I25.10 - Atherosclerotic heart disease of [place] coronary artery without angina pectoris Status: Acute Assessment and Plan: Cardiology will be seeing the patient. He has been having no chest pain History of Present Illness Reason for Consult Consult date: 08/29/24 Chief Complaint Chief complaint: ARF, uremia, dehydration, weakness, uti History of Present Illness Narrative: Thang is a very pleasant 64-year-old gentleman who has multiple medical problems including Coronary artery disease, Deep venous thrombosis, Dep
[2024-08-29 15:25] LABS: Glucose Point of Care 148 mg/dl (65-105)
--- NOTE | 2024-08-29 15:25 | PC.NURSE ---
This RN spoke to Alla in MRI who states cannot take patient with any pumps. Patient on levophed at this time. Alla will check back tomorrow.
[2024-08-29] MEDS: PHENYLEPHRINE HCL INJ 50 MG in DEXTROSE 5% IN WATER 250 ML/245 ML BAG 30 ML IV CONT (16:15)
[2024-08-29] MEDS: SODIUM CHLORIDE 0.9% IV 1,000 ML 999 ML IV CONT (16:22)
[2024-08-29] MEDS: EPOETIN ALFA-EPBX 10,000 UNITS/ML VIAL 10000 UNITS IV PUSH (16:52)
[2024-08-29 17:46] LABS: Hepatitis B Surface Antigen Negative (Negative)
[2024-08-29] MEDS: ALBUMIN HUMAN 25% 12.5 GM/50ML 50 ML IVPB ×2 (18:01→18:40)
[2024-08-29 18:04] LABS: Hepatitis B Surface Anti Res Negative
[2024-08-29 18:20] LABS: Glucose Point of Care 103 mg/dl (65-105)
[2024-08-29 20:45] LABS: Glucose Point of Care 109 mg/dl (65-105)
[2024-08-29] MEDS: AMIODARONE 150 MG/D5W 100 ML 150 MG/100 ML BAG 600 MG IV CONT (21:20)
[2024-08-29] MEDS: AMIODARONE 360 MG/D5W 200 ML 360 MG/200 ML BAG 33.33 MG IV CONT (21:31)
[2024-08-29] MEDS: CENTRAL LINE FLUSH 10 ML IV PUSH (21:46)
[2024-08-30] VITALS (13 sets, daily range): BP systolic 65–131; BP diastolic 48–117; PULSE 103–125; RESP 20–23; TEMP 37.8–38.1; O2SAT 83–98
[2024-08-30] MEDS: SODIUM BICARBONATE 8.4% 150 MEQ in WATER, STERILE FOR INJECTION 950 ML 100 MEQ IV CONT
[2024-08-30 00:06] LABS: Glucose Point of Care 105 mg/dl (65-105)
--- NOTE | 2024-08-30 03:15 | PCDIET ---
Patient called out stating that he needed help turning over onto his side. This RN with Eileen Posey RN went to bedside to repositioned patient. Immediately after being turned onto his right side, patient developed altered mental status and became unarousable, but had a carotid pulse. Dr. Cristina in ICU and was called to bedside to evaluate patient. Glucose level was checked and found to be 67 and was treated and rechecked per protocol. Dr. Cristina remained at bedside. ABG was obtained and patient was taken down to CT shortly after for stat head CT. [id number] Multiple calls and voicemail left for brother Rodríguez Zamora to update on patient change in status. [phone] Voicemail left for brother in law Jorge Mcclendon to update on patient change in status.
[2024-08-30] MEDS: AMIODARONE 360 MG/D5W 200 ML 360 MG/200 ML BAG 33.33 MG IV CONT (03:18)
[2024-08-30] MEDS: DEXTROSE 50% 25 GM/50 ML SYRINGE IV PUSH (03:20)
--- NOTE | 2024-08-30 03:37 | P.RRN_ITS ---
Critical Care Event Note Summary Code activated: Yes Narrative: 08/30/2024 at 03:00 Patient was being treated for septic shock, acute renal failure, suspected UTI. He also had concern for possible cardiac vegetation and recently had been on 6 weeks of antibiotics for diskitis. Patient was being treated with Rocephin and ampicillin. The patient had been on Km-Synephrine earlier in the evening but there was not significant improvement in the patient's blood pressures. The patient's pressors had been switched to Levophed per heating systems installer orders. Patient was having tachycardia due to Levophed and amiodarone had been initiated. Patient's temperature was 100.5? on temp probe Hendrix. The patient was on antibiotic therapy with Rocephin ampicillin and bicarb drip. He had a temporary dialysis catheter placed in his groin on the . Had echocardiogram on 12 that demonstrated mild pulmonary hypertension, moderate pericardial effusion, dilated IVC without collapse mild aortic stenosis. 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 I was in the ICU when nursing staff notify me patient suddenly went unresponsive. The nursing staff had been repositioning the patient and rolled him slightly onto his right side. The patient went unresponsive was staring up into the left. When I arrived to the room patient was cold to touch. Patient's glucose was 67. Patient received half amp of D50. Repeat glucose was 107. The patient went from flaccid and unresponsive but did shortly thereafter wake up after 1.5-2 minute interval. The patient was then able to follow simple commands was able to lift his legs and arms from the bed but was somnolent. Multiple providers attempted ABG I was eventually able to get ABG under ultrasound demonstrating pH of 7.12 and pCO2 was 30. An order was provided for an additional amp of sodium bicarb. Before sodium bicarb could be administered patient had went down to the CT scanner for stat CT of the head. While in the CT scan the patient's monitor demonstrated developing bradycardia. When nursing staff evaluated the patient there is no palpable pulse and found to be in PEA. A Code was called on CT scan. Please see code summary for further details. 45 minutes was spent in critical care activities up in the ICU. Due to a high probability of clinically significant, life threatening deterioration, the patient required my highest level of preparedness to intervene emergently and I personally spent this critical care time directly and personally managing the patient. This critical care time included obtaining a history; examining the patient; pulse oximetry; ordering and review of studies; arranging urgent treatment with development of a management plan; evaluation of patient's response to treatment; frequent reassessment; and discussions with other providers. It was exclusive of separately billable procedures and treating other patients and teaching time. Please see Assessment and Plan section and the rest of the note for further information on patient assessment and treatment. Critical care time: 30 - 74 mins
[2024-08-30 03:44] LABS: Alveolar/Arterial O2 Gradient 92.9 mmHg; Base Excess ABG -15.4 mEq/l (+/-2.0); Carboxyhemoglobin 0.9 % THb (0-2.0); Fractional Inspired Oxygen 28 %; HCO3 ABG 11.9 mEq/l (22.0-26.0); Methemoglobin ABG 0.3 %THb (0-1.5); Oxygen Content ABG 14.4 %vol (16.0-22.0); PCO2 ABG 32.8 mmHg (35.0-45.0); PO2 FiO2 Ratio Arterial Blood 2.43 %; Reduced Hemoglobin 12.3 %THb (0-5.0); Total Hemoglobin 11.8 g/dL (12.0-18.0)
[2024-08-30 03:46] LABS: pH ABG 7.177 (7.350-7.450)
[2024-08-30 03:47] LABS: Device NASAL CANNULA; Modified Allen's Test Pass; Oxyhemoglobin 86.5 % THb (90.0-100.0); Site Drawn LEFT BRACHIAL
--- NOTE | 2024-08-30 04:16 | PC.NURSE ---
Messages left for both emergency contacts to return call to the hospital.
--- NOTE | 2024-08-30 04:28 | ED.PROCEDURE ---
Procedures Intubation Intubation Date: 08/30/24 Intubation Time: 04:10 A pre-procedural Time-Out was completed immediately before starting the procedure and confirmed: Patient Identification, Site, Procedure, Patient Position and the Availability of Requisite Equipment: Yes Sedative: none Laryngoscope: fiber optic video scope ET tube size: 7.5 Tube secured depth (cm): 23 Tube secured location: lips Tube placement confirmation: visualized tube passing through cords, equal breath sounds bilaterally, no breath sounds over epigastrium and confirmation by capnometry Patient tolerated procedure: no complications Intubation complications: none FAST Exam FAST Exam 1: Fluid in Pericardial Sac: Yes Gross wall motion abnormality: No Study normal for this patient: No Images saved for further review: No Additional comments: pericardial effusion with attempted pericardiocentesis under ultrasound guidance at bedside Other Procedures Procedure 1: Other Procedure: ultrasound-guided pericardiocentesis. Indication: PE a arrest witnessed with large pericardial effusion with ultrasound evidence of cardiac standstill timeout was confirmed emergent consent secondary to patient's cardiac arrest 20 gauge spinal needle with direct visualization of the pericardial sac under ultrasound yielded minimal return of any fluid, sticky, consistent with uremic pericardial effusion no significant relief of the presumed tamponade physiology CPR continued and time of was called at 4:20 a.m. with cardiac standstill visualized under ultrasound and no palpable pulsations
[2024-08-30 05:03] LABS: Glucose Point of Care 102 mg/dl (65-105)
[2024-08-30 05:03] LABS: Glucose Point of Care 67 mg/dl (65-105)
[2024-08-30 05:03] LABS: Glucose Point of Care 65 mg/dl (65-105)
--- NOTE | 2024-08-30 05:14 | PDCODEBLUE ---
Code Blue Note Code Blue Note Time Arrived at Code Blue: 04:00 Initial Rhythm on Arrival: PEA Airway Management: Pt intubated during resuscitation Chest Compressions: In process on arrival to bedside Result of Code Blue: Pt Cardiac Rhythm Post Code: Asystole Code Blue Summary: I evaluated the patient in the ICU due to transient unresponsive episode. Patient did regain consciousness but remains confused. He was sent to CT scan for stat CT of the head. While in the CT scanner patient heart rate Jesus down. Nursing staff went to evaluate the patient in the patient was found to be pulseless. A code was called. During the course of resuscitation the patient received 8 amps of epinephrine 3 amps of sodium bicarb and an amp of calcium gluconate. Bedside ultrasound was utilized to evaluate patient's cardiac silhouette given recent echocardiogram demonstrating pericardial effusion moderate in size. Patient did have significant cardiac effusion. ER provider was at bedside and did attempt pericardial centesis without result with patient's pericardial effusion being approximate 12 cm deep. Despite multiple attempts, medications and resuscitation efforts including intubation the patient remained in asystole. At the cessation of resuscitation attempts patient had no evidence of cardiac wall motion and monitor demonstrated asystole. Time of was called at 04:20. Nursing staff had attempted to notify the patient's family prior to code. Family did return calls approximately 05:15.
--- NOTE | 2024-08-30 05:24 | PC.NURSE ---
Patient's brother Rodríguez answered phone at 0510. he was made aware of patient expiration. Rodríguez not coming up to view patient;he is going to try to reach his brother in law Bennett to see if they want to view patient and to discuss home.
--- NOTE | 2024-08-30 05:33 | PC.NURSE ---
Bennett Mcclendon, patients brother in law, notified of passing and states he will call back with the name of the home. Bennett states no one is coming to view the body.
--- NOTE | 2024-08-30 05:37 | PC.NURSE ---
MTS placing hold on body he is eligible for tissue donation. MTS made aware that family had been made aware of passing.
[2024-08-31 15:19] LABS: Hepatitis B Core Ab Total NON-REACTIVE (NON-REACTIVE)
--- NOTE | 2024-09-02 14:28 | PM.DDS ---
Discharge Summary Date and Time Date of : 08/30/24 Time of : 04:20 Provider Pronounced By: Provider Name of Provider That Pronounced: marilee Beal Probable Cause of Probable Cause of : End organ failure Shock Summary Hospital Course: 64-year-old male with the history of obesity, CKD, recent history of BILLIE on CKD requiring dialysis, history of diskitis recently status post 6 week course IV antibiotics with PICC line removal 2 days ago, AFib on Eliquis, type 2 diabetes mellitus with current long-term use of insulin, CHF, PVD, left BKA presented with complaint of weakness and worsening of his chronic lower back pain. Earlier this year patient developed BILLIE and was started on dialysis. He was dialyzed for 4 months. His kidney function had marginally improved and stabilized and he came off of dialysis. His dialysis catheter was removed 8 weeks ago. In July of 2024 he developed diskitis and osteomyelitis of L4-L5 disc which was managed at [facility]. Patient had MRI done and had percutaneous disc space aspiration on 07/19/2024. His blood culture at that time grew coag-negative staph. His REGI was negative he received treatment with daptomycin for 6 weeks and completed on 08/26 In the rehab patient continues to have back pain which she states is has gotten worse. He states that he walks with a walker but is limited by pain. Two weeks ago he was discharged from rehab For last 2 days back pain has been worse hence he presented to ER. He also states his abdomen has been distended. He has had poor p.o. intake over last few days. He does not feel any new numbness or weakness in extremities and he states that they it appears to be at baseline. He does have neuropathy and decreased sensation on his right foot at baseline. He has not lost control of bowel or bladder. He denies any dysuria or hematuria. He has noticed decrease in the amount of urine he produces. Increased belly distention. No shortness of breath cough or fever. No chest pain. CHEST: 1. Moderate Pericardial effusion. 2. Possible pneumonia in the left upper lobe. 3. Bilateral pleural effusion with adjacent atelectasis. 4. Nodule in the middle lobe measuring 9 mm millimeters. 3 months follow-up CT advised. ABDOMEN/PELVIS: 1. Possible soft tissue density area in the head of the pancreas. Mass is not excluded. 2. Fluid in the left paracolic gutter. 3. Destructive changes in the spine at the level of L4-L5 which may be inflammatory or degenerative. MRI evaluation is advised. Patient was given 500 mL fluid bolus and was admitted to step-down unit.. On step-down unit this morning patient had a rapid response due to low pressure and I was asked to evaluate patient for transfer to ICU -Patient blood pressure was adequate in the ER and had normal lactic acid level. Mild sinus tachycardia in the 110s. Hemoglobin 9.9 around his baseline, serum creatinine 5, BUN 107, sodium 132, potassium 5.2, lactic acid 1.7, magnesium 3.3, urinalysis 2+ leukocyte esterase, 11-20 WBC, 4+ bacteria. -Patient became hypotensive on the floor. He received 1 L fluid bolus with response and improvement in blood pressure. Later blood pressure dropping and patient requiring vasopressors. -Patient given additional 500 mL 5% albumin. -Patient given IV antibiotic- Rocephin. -Patient with kidney failure with BUN 113, Creatinine 5.50, GFR 11, and nephrology consulted. Dialysis ordered. -Liver enzymes elevated: AST 1365, ALT 910, alk phos 178 -Echo showed: Summary 1. Left ventricular systolic function is normal, estimated at 50-55%. 2. There is moderately increased left ventricular wall thickness. 3. The left ventricular diastolic function is abnormal. 4. Left atrial chamber dimension is mildly enlarged. 5. There is mild aortic valve stenosis with a peak velocity of 136.24 cm/s, mean gradient of 5 mmHg, and aortic valve area of 1.87 cm2. The
== END 2024-08-30 04:20 | disposition expired | DRG 469 ==
LOC: ANHED 21:24 → ANH3MED 21:57 → ANHICU 08-29 10:46
PROVIDERS: Emergency Medicine; Internal Medicine; Internal Medicine Nephrology; Nurse Practitioner Family; Admitting Provider General Practice; Emergency Provider Physician Assistant; PCP Nurse Practitioner; Visit Provider General Practice
DX: N17.9 Acute kidney failure, unspecified (principal); Z79.01 Long term (current) use of anticoagulants; Z89.512 Acquired absence of left leg below knee; G89.29 Other chronic pain; I13.0 Hypertensive heart and chronic kidney disease with heart failure and stage 1 through stage 4 chronic kidney disease, or unspecified chronic kidney disease; E11.22 Type 2 diabetes mellitus with diabetic chronic kidney disease; N18.4 Chronic kidney disease, stage 4 (severe); I50.9 Heart failure, unspecified; Z79.4 Long term (current) use of insulin; Z86.718 Personal history of other venous thrombosis and embolism; I25.10 Atherosclerotic heart disease of native coronary artery without angina pectoris; G47.33 Obstructive sleep apnea (adult) (pediatric); I48.0 Paroxysmal atrial fibrillation; E11.51 Type 2 diabetes mellitus with diabetic peripheral angiopathy without gangrene; Z90.49 Acquired absence of other specified parts of digestive tract; Z95.5 Presence of coronary angioplasty implant and graft; E66.9 Obesity, unspecified; E87.5 Hyperkalemia; E86.0 Dehydration; N30.00 Acute cystitis without hematuria; I95.9 Hypotension, unspecified; R74.8 Abnormal levels of other serum enzymes; M46.46 Discitis, unspecified, lumbar region; N40.0 Benign prostatic hyperplasia without lower urinary tract symptoms; I46.9 Cardiac arrest, cause unspecified
CPT/HCPCS: 31500; 36415; 36600; 70450; 71045; 71250; 72128; 72131; 74176; 76705; 76775; 80053; 81001; 82010; 82375; 82550; 82570; 82805; 82948; 83050; 83605; 83690; 83735; 83880; 84100; 84300; 85018; 85025; 85027; 85652; 86140; 86704; 86706; 87040; 87086; 87186; 87340; 87641; 92950; 93005; 96361; 96374; 96375; 96376; 99285; A9270; C1751; C1752; C8929; G0257; G0378; G0379; J0171; J0282; J0290; J0696; J1644; J1815; J2270; J2371; J2405; J2470; J7030; J7040; J7060; P9045; P9047; Q5105; Q9957